=== PATIENT | female | born 1965 | race Caucasian/White ===

== ENCOUNTER 2020-01-05 10:42 | Outpatient (REF) | payer OTHER, SELFPAY ==
[2020-01-05 11:01] LABS: Basophils Percent Auto 0.2 % (0-2); Eosinophils Percent Auto 0.3 % (0-4); Hematocrit 45.6 % (37-47); Hemoglobin 15.2 g/dl (12.0-16.0); Imm Gran Abs Auto 0.06 X10*3/uL (0.00-0.03); Imm Gran Pct Auto 0.4 % (0.0-0.4); Lymphocytes Absolute Auto 1.5 X10*3/uL (1.2-4.9); MANUAL DIFF FLAG NO; Mean Corpuscular HGB Conc 33.3 g/dl (31.0-35.0); Mean Corpuscular Hemoglobin 31.1 pg (27.0-33.0); Mean Corpuscular Volume 93.3 fL (80-98); Monocytes Absolute Auto 0.8 X10*3/uL (0.1-1.2); Neutrophils Percent Auto 82.1 % (45-73); Platelet Count 246 X10*3/uL (160-400); Red Blood Count 4.89 X10*6/uL (4.20-5.50); Red Cell Distribution Width 13.5 % (11.0-16.0); White Blood Count 13.4 X10*3/uL (4.8-10.8)
== END 2020-01-05 10:43 | disposition home or self-care (01) ==
LOC: HO.BBR 10:42
PROVIDERS: PCP Internal Medicine; Visit Provider Internal Medicine
DX: D75.1 Secondary polycythemia (principal)
CPT/HCPCS: 36415; 85025; 99195

== ENCOUNTER 2020-01-11 13:23 | Outpatient (REF) | payer OTHER, SELFPAY ==
[2020-01-11 13:45] LABS: COVID-19 Test Negative (Negative)
== END 2020-01-11 13:24 | disposition home or self-care (01) ==
LOC: HO.LAB 13:23
PROVIDERS: Visit Provider Internal Medicine
DX: Z20.828 Contact with and (suspected) exposure to other viral communicable diseases (principal)
CPT/HCPCS: 87635

== ENCOUNTER 2020-01-30 14:59 | Outpatient (REF) | payer OTHER, SELFPAY ==
[2020-01-30 16:33] LABS: Alanine Aminotransferase 76 U/L (0-31); Albumin Level 4.8 g/dL (3.5-5.0); Alkaline Phosphatase 99 U/L (39-117); Aspartate Amino Transferase 31 U/L (5-31); Bilirubin Direct < 0.2 mg/dL (0.0-0.5); Bilirubin Total 0.4 mg/dL (0.0-1.0); Total Protein 7.3 g/dL (6.5-8.0)
== END 2020-01-30 15:00 | disposition home or self-care (01) ==
LOC: HO.LAB 14:59
PROVIDERS: PCP Registered Nurse; Visit Provider Clinical Nurse Specialist Psychiatric/Mental Health, Adult
DX: F33.2 Major depressive disorder, recurrent severe without psychotic features (principal)
CPT/HCPCS: 80076

== ENCOUNTER 2020-02-02 14:55 | Outpatient (REF) | payer OTHER, SELFPAY ==
[2020-02-02 16:15] LABS: Amphetamine Screen Urine Not Detected (Not Detect); Barbiturates, Urine Not Detected (Not Detect); Benzodiazepines Screen Urine Not Detected (Not Detect); Cannabinoid Screen Urine Not Detected (Not Detect); Cocaine Screen Urine Not Detected (Not Detect); Opiate Screen Urine Not Detected (Not Detect); Phencyclidine Screen Urine Not Detected (Not Detect)
== END 2020-02-02 14:56 | disposition home or self-care (01) ==
LOC: HO.LAB 14:55
PROVIDERS: PCP Registered Nurse; Visit Provider Clinical Nurse Specialist Psychiatric/Mental Health, Adult
DX: F43.10 Post-traumatic stress disorder, unspecified (principal)
CPT/HCPCS: 80307

== ENCOUNTER 2020-02-21 12:15 | Outpatient (RCR) | payer OTHER, SELFPAY ==
[2020-01-26 12:30] VITALS: BMI 28.4
--- NOTE | 2020-01-26 12:31 | PC.ADMIT ---
Patient is a 54 year old female who started the PHP program today on the advise of her EAP therapist. Pt was referred d/t increased symptoms of depression with passive SI and anxiety. Pt reports work related stress, feeling overwhelmed with increased work load and also from isolation d/t pandemic restrictions. Pt is applying for FMLA d/t symptoms. She has been using alcohol to cope with how she is feeling. Reports drinking wine increasing since the pandemic reporting up to 8-10 glasses a night from November-May. Pt reports she was working with her therapist and was able to reduce amount to 2 glasses a night however reports the glasses were not filled all the way. Reports last drank on 01/22/20. Denied any current detox sxs. Denied h/a, Nausea or vomiting, no tremors, she does report sweating but only at night stating she is going through menopause, No restlessness. Reports that she slept well last night sleeping 12 hours. Encouraged pt to increase fluid intake. Educated patient regarding the dangers of alcohol withdrawal and if she starts to experience the above mentioned symptoms to go to the ER. Pt also saw her PCP yesterday who sent us a letter medically clearing pt to attend our program. Patient currently denied SI. She has the crisis number if feeling unsafe and stated she can also reach out to her who is supportive. Patient gave verbal permission to email her a copy of her safety plan.
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
--- NOTE | 2020-01-30 15:15 | HO.PHPPROGNO ---
Subjective Subjective Date of Service: 01/30/20 Reason For Visit: depression Interim History: This is the third family member I have with NADINE. Describes a rough weekend. On Thursday, she learned from a colleague that her work team had been informed of current events. She also learned her son and daughter in law have COVID and they have 2 children. On Thursday pt felt labile, had a few disagreements with her which is out of character. Describes a period of 1-1.5 hours of intense inconsolable grief-crying which exhausted her into Thursday. I did not like who I was on Thursday . Today, she has a let it go perspective and wants to focus on anxiety and the symptoms of feeling as if she holds emotions in she cannot stop the anger, pain and racing thoughts. Reviewed options for medications. Medication Compliance: Yes Side effects from medications: No Attending Groups: Yes Review of Systems Reports behavioral changes Psychiatric: Reports anxiety, Reports behavioral changes, Reports depression, Reports difficulty concentrating, Reports hopelessness, Reports irritability, Reports anhedonia and Reports mood swings Mental Status Exam Mental Status Exam Patient Orientation: Person, Place, Time and Situation Level of Consciousness: Awake, Appropriate and Alert Patient Behavior: Appropriate Mood Description: Depressed, Labile (reports lability over part of the weekend.), Sad, Nervous and Apprehensive Affect Description: Constricted and Depressed Patient Cognition Impaired: No Ability to Follow Directions: Excellent Speech Pattern: Clear, Appropriate and Spontaneous Speech Memory Description: Intact Hallucinations: None Delusions: Not Present Thought Process: Intact and Goal Oriented Thought Content: positive for Intact Depressive Symptoms: Increased Anxiety, Increased Irritability, Crying Spells, Loss of Int. in Activity, Hopelessness, Unhappiness, Increased Fatigue, Low Self Esteem and Loss of Energy Judgement: Good Diagnostics Vital Signs (24Hr): Body Mass Index 28.4 Assessment & Plan Patient educated on: medication risk/benefits and therapeutic strategies Informed Consent: further education needed Reason for contiued partial hosp. stay Substantial Risk for: inability to function and rapid decompensation Certification I certify that partial hospital treatment is medically necessary due to the symptoms and problems resulting from the patient's mental illness and the failure to treat the patient at the partial hospital level of care would likely result in the patient requiring inpatient psychiatric care which could not be prevented at a less intensive level of care. Greater than 50% of the session was spent on counseling and/or coordination of care Discharge Plan Discharge Attending provider: David Jaramillo Additional Instructions: 01/30/20: Lamictal 25 mg daily Medications: New lamotrigine [Lamictal] 25 mg tablet 25 mg PO DAILY 14 Days Qty: 14 RF: 0 No Action atorvastatin 20 mg Tablet 20 mg PO BEDTIME RF: 0 amlodipine 5 mg Tablet 5 mg PO DAILY RF: 0 paroxetine HCl [Paxil] 30 mg Tablet 30 mg PO DAILY RF: 0 aspirin 81 mg Tablet 81 mg PO DAILY RF: 0 valsartan 160 mg Tablet 160 mg PO DAILY RF: 0
--- NOTE | 2020-01-31 14:48 | PM.EVENT ---
Event Note Date of Service: 01/31/20 Event Note: FMLA paperwork is completed with pt today.
--- NOTE | 2020-02-01 15:21 | PC.NURSE ---
Called [facility] to refer pt to therapist and med provider. I spoke to Sandi, who said she will create a chart and call me with dates for therapy and medication management.
--- NOTE | 2020-02-03 13:56 | PC.NURSE ---
I called and LM for Sandi at [facility] about her message stating there is an insurance issue related to referral placed for pt for individual therapy and med management. IU then called central intake again and spoke to Zaida ([phone])> Zaida said pt's insurance doesn't appear to be active yet. She said there might be a glitch in their computer. She said she will talk to Yareli, her boss, and get back to me
--- NOTE | 2020-02-06 14:58 | PC.NURSE ---
Insurance issue stated by [facility] is resolved. I recieved a call from Zaida at [facility] with appts for pt. I called her and let her know of these. She has an intake for individual therapy with Demetra Mccollum on 02/27/2020 at 3pm (pt will be assigned a therapist following the intake). She has a medication evaluation appt on 03/14/2020 from 10am to 11am with Lucero Hutton. She also has a 20 minute medication management followup on 04/11/2019 at 4pm, also with Lucero Hutton. All appointments are scheduled for telehealth, not in-person visits.
--- NOTE | 2020-02-08 12:09 | HO.PHPPROGNO ---
Subjective Subjective Date of Service: 02/08/20 Reason For Visit: depression Interim History: Kyra reports she is tolerating Lamictal without SE. She does experience a warm feeling approximately one hour after dosing, however, this passes. Discussed half-life. Reports work stress is still an issue, even while out on medical leave, due to recent activity. Discussed focus on self, healing and doing what she needs to do to manage symptoms, feel stronger and resilient. Medication Compliance: Yes Side effects from medications: No Attending Groups: Yes Review of Systems Psychiatric: Reports anxiety, Reports depression, Reports difficulty concentrating, Reports hopelessness, Reports irritability, Reports anhedonia and Reports mood swings Mental Status Exam Mental Status Exam Patient Orientation: Person, Place, Time and Situation Level of Consciousness: Awake, Appropriate and Alert Patient Behavior: Appropriate, Talkative, Cooperative, Anxious, Fearful and Fatigued Affect Description: Constricted and Anxious Patient Cognition Impaired: No Ability to Follow Directions: Excellent Speech Pattern: Clear, Appropriate and Spontaneous Speech Memory Description: Intact Hallucinations: None Delusions: Not Present Thought Process: Intact Thought Content: positive for Intact, positive for Circumstantial and positive for Logical Depressive Symptoms: Increased Anxiety, Loss of Int. in Activity, Feelings of Worthlessness, Hopelessness, Feelings of Guilt, Unhappiness, Increased Fatigue, Low Self Esteem, Loss of Energy and Difficulty Concentrating Judgement: Good Diagnostics Vital Signs (24Hr): Body Mass Index 28.4 Assessment & Plan Assessment & Plan (1) Post-traumatic stress disorder, unspecified: Status: Acute Code(s): F43.10 - Post-traumatic stress disorder, unspecified Assessment and Plan: -Continue Lamictal, Paxil -Continue PHP plan of care -Discussed re-focus on self, healing vs activities of her work -OP med appt 04/11/20 with [facility] (2) Major depressive disorder, recurrent severe without psychotic features: Status: Acute Code(s): F33.2 - Major depressive disorder, recurrent severe without psychotic features Assessment and Plan: -Continue Lamictal, Paxil and PHP plan of care -[facility] psychotherapy scheduled for 02/26/21, med appt 04/11/20. Certification I certify that partial hospital treatment is medically necessary due to the symptoms and problems resulting from the patient's mental illness and the failure to treat the patient at the partial hospital level of care would likely result in the patient requiring inpatient psychiatric care which could not be prevented at a less intensive level of care. Greater than 50% of the session was spent on counseling and/or coordination of care Discharge Plan Discharge Attending provider: David Jaramillo Additional Instructions: 01/30/20: Lamictal 25 mg daily *Kyra has an intake for individual therapy with Demetra Mccollum on 02/27/2020 at 3pm (pt will be assigned a therapist following the intake). She has a medication evaluation appt on 03/14/2020 from 10am to 11am with Lucero Hutton. She also has a 20 minute medication management followup on 04/11/2019 at 4pm, also with Lucero Hutton. All appointments are scheduled for telehealth, not in-person visits. Medications: Continued lamotrigine [Lamictal] 25 mg tablet 25 mg PO DAILY 14 Days Qty: 30 RF: 1 No Action atorvastatin 20 mg Tablet 20 mg PO BEDTIME RF: 0 amlodipine 5 mg Tablet 5 mg PO DAILY RF: 0 paroxetine HCl [Paxil] 30 mg Tablet 30 mg PO DAILY RF: 0 aspirin 81 mg Tablet 81 mg PO DAILY RF: 0 valsartan 160 mg Tablet 160 mg PO DAILY RF: 0
--- NOTE | 2020-02-13 16:44 | P.PNPSP_ITS ---
Subjective Subjective Date of Service: 02/14/20 Reason For Visit: depression Interim History: The day was good Describes a calm holiday. Pharmacy did not give Lamictal on 02/08/20 as they had questions. Weekend was quiet-Kyra is beginning to talk with friends/family about what has been stressful-feels some relief however this still feels difficult. Able to clarify some concerns with employer which is helpful she reports. Overall feels drained. Finding groups helpful. Plans step down today. Call to pt's pharmacy to address their concerns regarding Lamictal 25 mg daily to begin. Medication Compliance: Yes Side effects from medications: No Attending Groups: Yes Review of Systems Reports behavioral changes Psychiatric: Reports as per HPI, Reports anxiety, Reports behavioral changes, Reports depression, Reports difficulty concentrating, Reports hopelessness, Reports mood swings and Reports panic attacks Mental Status Exam Mental Status Exam Patient Orientation: Person, Place, Time and Situation Level of Consciousness: Awake, Appropriate and Alert Patient Behavior: Appropriate, Talkative and Cooperative Mood Description: Anxious and Flat Affect Description: Flat Patient Cognition Impaired: No Ability to Follow Directions: Excellent Speech Pattern: Clear, Appropriate and Spontaneous Speech Memory Description: Intact Hallucinations: None Delusions: Not Present Thought Process: Intact and Distracted (at times) Thought Content: positive for Intact, positive for Circumstantial and positive for Logical Depressive Symptoms: Increased Anxiety, Crying Spells, Loss of Int. in Activity, Hopelessness, Unhappiness, Increased Fatigue, Low Self Esteem and Loss of Energy Judgement: Good Diagnostics Vital Signs (24Hr): Body Mass Index 28.4 Assessment & Plan Assessment & Plan (1) Post-traumatic stress disorder, unspecified: Status: Acute Code(s): F43.10 - Post-traumatic stress disorder, unspecified Assessment and Plan: Lamictal order clarified with pt's pharmacy. Pt to begin dosage this evening. PHP transition to IOP. (2) Major depressive disorder, recurrent severe without psychotic features: Status: Acute Code(s): F33.2 - Major depressive disorder, recurrent severe without psychotic features Assessment and Plan: Begin Lamictal Step down to IOP Certification I certify that partial hospital treatment is medically necessary due to the symptoms and problems resulting from the patient's mental illness and the failure to treat the patient at the partial hospital level of care would likely result in the patient requiring inpatient psychiatric care which could not be prevented at a less intensive level of care. Greater than 50% of the session was spent on counseling and/or coordination of care Discharge Plan Discharge Attending provider: David Jaramillo Additional Instructions: 01/30/20: Lamictal 25 mg daily *Kyra has an intake for individual therapy with Demetra Mccollum on 02/27/2020 at 3pm (pt will be assigned a therapist following the intake). She has a medication evaluation appt on 03/14/2020 from 10am to 11am with Lucero Hutton. She also has a 20 minute medication management followup on 04/11/2019 at 4pm, also with Lucero Hutton. All appointments are scheduled for telehealth, not in- person visits. Medications: Continued lamotrigine [Lamictal] 25 mg tablet 25 mg PO DAILY 30 Days Qty: 30 RF: 1 No Action atorvastatin 20 mg Tablet 20 mg PO BEDTIME RF: 0 amlodipine 5 mg Tablet 5 mg PO DAILY RF: 0 paroxetine HCl [Paxil] 30 mg Tablet 30 mg PO DAILY RF: 0 aspirin 81 mg Tablet 81 mg PO DAILY RF: 0 valsartan 160 mg Tablet 160 mg PO DAILY RF: 0
--- NOTE | 2020-02-21 11:15 | P.PNPSP_ITS ---
Subjective Subjective Date of Service: 02/21/20 Reason For Visit: depression Interim History: Kyar reports this is her final PHP day. She reports feeling improved, 100% better . Tolerating Lamictal, the plan is to continue at 25 mg 02/20-, then increase to 50 mg 02/27. She will meet her new prescriber on 03/14/20. Medication Compliance: Yes Side effects from medications: No Attending Groups: Yes Review of Systems Reports behavioral changes Psychiatric: Reports behavioral changes and Reports other (reports feeling less hopeless and lost, more focused) Mental Status Exam Mental Status Exam Patient Orientation: Person, Place, Time and Situation Level of Consciousness: Awake, Appropriate and Alert Patient Behavior: Appropriate, Talkative, Cooperative and Anxious (about the future and dealing with issues-apprehensive) Mood Description: Apprehensive Affect Description: Appropriate Patient Cognition Impaired: No Ability to Follow Directions: Excellent Speech Pattern: Clear, Appropriate, Spontaneous Speech and Coherent Memory Description: Intact Hallucinations: None Delusions: Not Present Thought Process: Intact Thought Content: positive for Intact Judgement: Good Diagnostics Vital Signs (24Hr): Body Mass Index 28.4 Assessment & Plan Assessment & Plan (1) Post-traumatic stress disorder, unspecified: Status: Acute Code(s): F43.10 - Post-traumatic stress disorder, unspecified Assessment and Plan: -Continue Lamictal at 25 mg daily until 02/27/20. -On 02/28/20 increase Lamictal to 50mg daily. Prescriptions sent. Will meet new prescriber on 03/14/20. Certification I certify that partial hospital treatment is medically necessary due to the symptoms and problems resulting from the patient's mental illness and the failure to treat the patient at the partial hospital level of care would likely result in the patient requiring inpatient psychiatric care which could not be prevented at a less intensive level of care. Greater than 50% of the session was spent on counseling and/or coordination of care Discharge Plan Discharge Attending provider: David Jaramillo Additional Instructions: 01/30/20: Lamictal 25 mg daily *Kyra has an intake for individual therapy with Demetra Mccollum on 02/27/2020 at 3pm (pt will be assigned a therapist following the intake). She has a medication evaluation appt on 03/14/2020 from 10am to 11am with Lucero Hutton. She also has a 20 minute medication management followup on 04/11/2019 at 4pm, also with Lucero Hutton. All appointments are scheduled for telehealth, not in- person visits. Medications: New lamotrigine [Lamictal] 25 mg tablet 25 mg PO DAILY MDD 1 tab qd 8-14; 2 tabs qd 22 Days Qty: 40 RF: 0 No Action atorvastatin 20 mg Tablet 20 mg PO BEDTIME RF: 0 amlodipine 5 mg Tablet 5 mg PO DAILY RF: 0 paroxetine HCl [Paxil] 30 mg Tablet 30 mg PO DAILY RF: 0 aspirin 81 mg Tablet 81 mg PO DAILY RF: 0 valsartan 160 mg Tablet 160 mg PO DAILY RF: 0
== END 2020-02-21 23:55 | disposition home or self-care (01) ==
LOC: HO.PHPA 12:15
PROVIDERS: Visit Provider Psychiatry & Neurology Psychiatry
DX: F33.2 Major depressive disorder, recurrent severe without psychotic features (principal); F43.10 Post-traumatic stress disorder, unspecified; Z79.899 Other long term (current) drug therapy
CPT/HCPCS: 90792; 90853; 99213

== ENCOUNTER 2020-03-05 14:49 | Outpatient (REF) | payer OTHER, SELFPAY | END 2020-03-05 14:50 | disposition home or self-care (01) | LOC: HO.BBR 14:49 | PROVIDERS: Visit Provider Internal Medicine | DX: D75.1 Secondary polycythemia (principal) | CPT/HCPCS: 36415; 85018; 99195 ==

== ENCOUNTER 2020-03-22 09:22 | Outpatient (REF) | payer OTHER, SELFPAY ==
--- NOTE | 2020-03-22 09:26 | MM_ITS ---
EXAMINATION: MM SCREENING DIGITAL BREAST TOMOSYNTHESIS, BILATERAL CLINICAL INFORMATION: Screening. Asymptomatic. The lifetime risk of breast cancer based on the Tyrer-Cuzick Model is 7%. COMPARISON: Mammography: 06/24/2018, 05/15/2017 TECHNIQUE: Digital breast tomosynthesis is performed in both the craniocaudal and mediolateral oblique views along with computer-aided detection (CAD). Synthesized 2D images are generated from the tomosynthesis. FINDINGS: There are scattered areas of fibroglandular density (ACR BI-RADS breast composition Category b). There are no significant masses, abnormal calcifications, or other abnormalities. Parenchymal pattern is similar to prior studies. No significant changes. MM/MM tomosynthesis screening BI IMPRESSION: No mammographic evidence of malignancy. ASSESSMENT: BI-RADS 1: Negative RECOMMENDATION: Routine annual mammography screening. This patient's information was entered into a reminder system with a target due date for their next mammogram.
== END 2020-03-22 09:23 | disposition home or self-care (01) ==
LOC: HO.MAMMO 09:22
PROVIDERS: Visit Provider Registered Nurse
DX: Z12.31 Encounter for screening mammogram for malignant neoplasm of breast (principal)
CPT/HCPCS: 77063; 77067

== ENCOUNTER → 2020-05-07 11:16 | Outpatient (BNV) | payer OTHER, SELFPAY | PROVIDERS: PCP Internal Medicine; Visit Provider Internal Medicine | DX: D75.1 Secondary polycythemia (principal) | CPT/HCPCS: 99213; 99214 ==

== ENCOUNTER 2020-05-16 08:58 | Outpatient (REF) | payer OTHER, SELFPAY | END 2020-05-16 08:59 | disposition home or self-care (01) | LOC: HO.BBR 08:58 | PROVIDERS: Visit Provider Internal Medicine | DX: D75.1 Secondary polycythemia (principal) | CPT/HCPCS: 36415; 85018; 99195 ==

== ENCOUNTER 2020-07-19 08:49 | Outpatient (REF) | payer OTHER, SELFPAY | END 2020-07-19 08:50 | disposition home or self-care (01) | LOC: HO.BBR 08:49 | PROVIDERS: Visit Provider Internal Medicine | DX: D75.1 Secondary polycythemia (principal) | CPT/HCPCS: 85014; 85018; 99195 ==

== ENCOUNTER 2020-09-10 08:21 | Outpatient (REF) | payer OTHER, SELFPAY ==
--- NOTE | ~2020-09-10 | CT_ITS ---
EXAMINATION: CT CHEST SCREENING CLINICAL INFORMATION: Smoking history COMPARISON: Previous chest CT most recent May 2019 TECHNIQUE: Multidetector volumetric CT imaging of the chest is performed without contrast using low dose technique. Additional 2D coronal and sagittal reformatted images and axial 3D maximum intensity projection (MIP) images are generated on the CT workstation. This CT examination was performed using dose optimization techniques as appropriate, variously including the following: *Automated exposure control *Adjustment of mA and/or kV according to patient size (this includes techniques or standardized protocols for targeted exams where dose is matched to indication/reason for exam; i.e. extremities or head) *Use of iterative reconstruction technique DLP: 54 mGy-cm FINDINGS: LUNGS: The 3 mm right upper lobe nodule axial image 71 series 5 is stable. There are otherwise clear. MEDIASTINUM: The mediastinum is normal. PLEURA: There is no pleural effusion. No pleural mass or thickening. AXILLA: No lymphadenopathy. UPPER ABDOMEN: Unremarkable OSSEOUS STRUCTURES: Unremarkable. CT/CT lung screening IMPRESSION: Stable small right upper lobe pulmonary nodule. ASSESSMENT: Lung-RADS category 2: Benign RECOMMENDATION: Annual low-dose chest CT follow-up recommended.
== END 2020-09-10 08:22 | disposition home or self-care (01) ==
LOC: HO.CT 08:21
PROVIDERS: Visit Provider Physician Assistant Medical
DX: Z12.2 Encounter for screening for malignant neoplasm of respiratory organs (principal); F17.210 Nicotine dependence, cigarettes, uncomplicated
CPT/HCPCS: 71271

== ENCOUNTER 2020-09-13 09:01 | Outpatient (REF) | payer OTHER, SELFPAY | END 2020-09-13 09:02 | disposition home or self-care (01) | LOC: HO.BBR 09:01 | PROVIDERS: Visit Provider Internal Medicine | DX: D45 Polycythemia vera (principal) | CPT/HCPCS: 85014; 85018; 99195 ==

== ENCOUNTER 2020-11-14 09:44 | Outpatient (REF) | payer OTHER, SELFPAY | END 2020-11-14 09:45 | disposition home or self-care (01) | LOC: HO.BBR 09:44 | PROVIDERS: Visit Provider Internal Medicine | DX: D75.1 Secondary polycythemia (principal) | CPT/HCPCS: 85018; 99195 ==

== ENCOUNTER 2021-01-10 12:52 | Outpatient (REF) | payer OTHER, SELFPAY | END 2021-01-10 12:53 | disposition home or self-care (01) | LOC: HO.BBR 12:52 | PROVIDERS: Visit Provider Internal Medicine | DX: D75.1 Secondary polycythemia (principal) | CPT/HCPCS: 85018; 99195 ==

== ENCOUNTER 2021-02-11 10:53 | Outpatient (REF) | payer OTHER, SELFPAY | END 2021-02-11 10:54 | disposition home or self-care (01) | LOC: HO.BBR 10:53 | PROVIDERS: Visit Provider Internal Medicine | DX: D75.1 Secondary polycythemia (principal) | CPT/HCPCS: 85018; 99195 ==

== ENCOUNTER 2021-03-21 10:53 | Outpatient (REF) | payer OTHER, SELFPAY | END 2021-03-21 10:54 | disposition home or self-care (01) | LOC: HO.BBR 10:53 | PROVIDERS: Visit Provider Internal Medicine | DX: D75.1 Secondary polycythemia (principal) | CPT/HCPCS: 85018; 99195 ==

== ENCOUNTER 2021-04-19 10:46 | Outpatient (REF) | payer OTHER, SELFPAY | END 2021-04-19 10:47 | disposition home or self-care (01) | LOC: HO.BBR 10:46 | PROVIDERS: Visit Provider Internal Medicine | DX: D75.1 Secondary polycythemia (principal) | CPT/HCPCS: 85018; 99195 ==

== ENCOUNTER 2021-04-29 13:44 | Outpatient (REF) | payer OTHER, SELFPAY | END 2021-04-29 13:45 | disposition home or self-care (01) | LOC: HO.BBR 13:44 | PROVIDERS: Visit Provider Internal Medicine | DX: D75.1 Secondary polycythemia (principal) | CPT/HCPCS: 85018; 99195 ==

== ENCOUNTER 2021-06-10 13:48 | Outpatient (REF) | payer OTHER, SELFPAY | END 2021-06-10 13:49 | disposition home or self-care (01) | LOC: HO.BBR 13:48 | PROVIDERS: Visit Provider Internal Medicine | DX: D75.1 Secondary polycythemia (principal) | CPT/HCPCS: 85018; 99195 ==

== ENCOUNTER 2021-07-08 13:56 | Outpatient (REF) | payer OTHER, SELFPAY | END 2021-07-08 13:57 | disposition home or self-care (01) | LOC: HO.BBR 13:56 | PROVIDERS: Visit Provider Internal Medicine | DX: D75.1 Secondary polycythemia (principal) | CPT/HCPCS: 85018 ==

== ENCOUNTER 2021-07-31 08:48 | Outpatient (REF) | payer OTHER, SELFPAY | END 2021-07-31 08:49 | disposition home or self-care (01) | LOC: HO.BBR 08:48 | PROVIDERS: Visit Provider Internal Medicine | DX: D75.1 Secondary polycythemia (principal) | CPT/HCPCS: 85018; 99195 ==

== ENCOUNTER 2021-08-01 09:54 | Outpatient (REF) | payer OTHER, SELFPAY ==
--- NOTE | ~2021-08-01 | MM_ITS ---
EXAMINATION: MM SCREENING DIGITAL BREAST TOMOSYNTHESIS, BILATERAL CLINICAL INFORMATION: Screening. Asymptomatic. The lifetime risk of breast cancer based on the Tyrer-Cuzick Model is 6%. COMPARISON: Mammography: 03/22/2020, 06/24/2018, 05/15/2017 TECHNIQUE: Digital breast tomosynthesis is performed in both the craniocaudal and mediolateral oblique views along with computer-aided detection (CAD). Synthesized 2D images are generated from the tomosynthesis. FINDINGS: There are scattered areas of fibroglandular density (ACR BI-RADS breast composition Category b). There are no significant masses, abnormal calcifications, or other abnormalities. Parenchymal pattern is similar to prior studies. The axilla and skin contours are unremarkable. MM/MM tomosynthesis screening BI IMPRESSION: No mammographic evidence of malignancy. ASSESSMENT: BI-RADS 1: Negative RECOMMENDATION: Routine annual mammography screening. This patient's information was entered into a reminder system with a target due date for their next mammogram.
== END 2021-08-01 09:55 | disposition home or self-care (01) ==
LOC: HO.MAMMO 09:54
PROVIDERS: Visit Provider Registered Nurse
DX: Z12.31 Encounter for screening mammogram for malignant neoplasm of breast (principal)
CPT/HCPCS: 77063; 77067

== ENCOUNTER 2021-09-11 13:53 | Outpatient (REF) | payer OTHER, SELFPAY | END 2021-09-11 13:54 | disposition home or self-care (01) | LOC: HO.BBR 13:53 | PROVIDERS: Visit Provider Internal Medicine | DX: D75.1 Secondary polycythemia (principal) | CPT/HCPCS: 85014; 85018; 99195 ==

== ENCOUNTER 2021-09-12 09:20 | Outpatient (REF) | payer OTHER, SELFPAY ==
--- NOTE | ~2021-09-12 | CT_ITS ---
EXAMINATION: CT CHEST SCREENING CLINICAL INFORMATION: Current smoker. 40 pack year history. COMPARISON: Previous chest CT most recent August 2020 TECHNIQUE: Multidetector volumetric CT imaging of the chest is performed without contrast using low dose technique. Additional 2D coronal and sagittal reformatted images and axial 3D maximum intensity projection (MIP) images are generated on the CT workstation. This CT examination was performed using dose optimization techniques as appropriate, variously including the following: *Automated exposure control *Adjustment of mA and/or kV according to patient size (this includes techniques or standardized protocols for targeted exams where dose is matched to indication/reason for exam; i.e. extremities or head) *Use of iterative reconstruction technique DLP: 259 mGy-cm FINDINGS: LUNGS: The 3 mm right upper lobe nodule axial image 252 series 5 is stable. The lungs are otherwise clear. No endobronchial or endotracheal lesion. MEDIASTINUM: The mediastinum is normal. PLEURA: There is no pleural effusion. No pleural mass or thickening. AXILLA: No lymphadenopathy. UPPER ABDOMEN: Unremarkable OSSEOUS STRUCTURES: Unremarkable. CT/CT lung screening IMPRESSION: Stable small right upper lobe nodule. ASSESSMENT: Lung-RADS category 2: Benign RECOMMENDATION: Annual low-dose chest CT follow-up recommended.
== END 2021-09-12 09:21 | disposition home or self-care (01) ==
LOC: HO.CT 09:20
PROVIDERS: Visit Provider Physician Assistant Medical
DX: F17.210 Nicotine dependence, cigarettes, uncomplicated (principal)
CPT/HCPCS: 71271

== ENCOUNTER 2021-10-23 13:40 | Outpatient (REF) | payer OTHER, SELFPAY | END 2021-10-23 13:41 | disposition home or self-care (01) | LOC: HO.BBR 13:40 | PROVIDERS: Visit Provider Internal Medicine | DX: D75.1 Secondary polycythemia (principal) | CPT/HCPCS: 85014; 85018; 99195 ==

== ENCOUNTER 2021-11-20 13:53 | Outpatient (REF) | payer OTHER, SELFPAY | END 2021-11-20 13:54 | disposition home or self-care (01) | LOC: HO.BBR 13:53 | PROVIDERS: Visit Provider Internal Medicine | DX: D75.1 Secondary polycythemia (principal) | CPT/HCPCS: 85018 ==

== ENCOUNTER 2021-12-04 13:51 | Outpatient (REF) | payer OTHER, SELFPAY | END 2021-12-04 13:52 | disposition home or self-care (01) | LOC: HO.BBR 13:51 | PROVIDERS: Visit Provider Internal Medicine | DX: D75.1 Secondary polycythemia (principal) | CPT/HCPCS: 85018; 99195 ==

== ENCOUNTER 2022-01-08 11:10 | Outpatient (REF) | payer OTHER, SELFPAY | END 2022-01-08 11:11 | disposition home or self-care (01) | LOC: HO.BBR 11:10 | PROVIDERS: Visit Provider Internal Medicine | DX: D75.1 Secondary polycythemia (principal) | CPT/HCPCS: 85018; 99195 ==

== ENCOUNTER 2022-02-12 13:53 | Outpatient (REF) | payer OTHER, SELFPAY | END 2022-02-12 13:54 | disposition home or self-care (01) | LOC: HO.BBR 13:53 | PROVIDERS: Visit Provider Internal Medicine | DX: D75.1 Secondary polycythemia (principal) | CPT/HCPCS: 85018; 99195 ==

== ENCOUNTER 2022-03-26 13:58 | Outpatient (REF) | payer OTHER, SELFPAY | END 2022-03-26 13:59 | disposition home or self-care (01) | LOC: HO.BBR 13:58 | PROVIDERS: Visit Provider Internal Medicine | DX: D75.1 Secondary polycythemia (principal) | CPT/HCPCS: 85018; 99195 ==

== ENCOUNTER 2022-05-01 13:53 | Outpatient (REF) | payer OTHER, SELFPAY | END 2022-05-01 13:54 | disposition home or self-care (01) | LOC: HO.BBR 13:53 | PROVIDERS: Visit Provider Internal Medicine | DX: D75.1 Secondary polycythemia (principal) | CPT/HCPCS: 85014; 85018; 99195 ==

== ENCOUNTER 2022-05-20 07:10 | Outpatient (REF) | payer OTHER, SELFPAY ==
[2022-05-20 07:56] LABS: Estimated Average Glucose 103 mg/dL; Hemoglobin A1c % 5.2 %
[2022-05-20 08:20] LABS: Alanine Aminotransferase 29 U/L (0-31); Albumin Level 4.6 g/dL (3.5-5.0); Alkaline Phosphatase 101 U/L (39-117); Anion Gap 14 (12-20); Aspartate Amino Transferase 21 U/L (5-31); Bilirubin Total 0.5 mg/dL (0.0-1.0); Blood Urea Nitrogen 11 mg/dL (9-16); Carbon Dioxide 27 mmol/L (22-29); Chloride 105 mmol/L (96-108); Cholesterol 257 mg/dL; Estimated Glomerular Filt Rate > 60; Glucose Random 105 mg/dL (60-115); HDL Cholesterol 90 mg/dL; LDL Cholesterol Calculated 150 mg/dl; Potassium 4.5 mmol/L (3.3-5.1); Sodium 141 mmol/L (135-145); Triglycerides 87 mg/dL
[2022-05-20 08:39] LABS: Vitamin D 25-OH Total 11.8 ng/mL (>30)
== END 2022-05-20 07:11 | disposition home or self-care (01) ==
LOC: HO.LAB 07:10
PROVIDERS: PCP Registered Nurse; Visit Provider Registered Nurse
DX: R73.01 Impaired fasting glucose (principal); I10 Essential (primary) hypertension; E78.2 Mixed hyperlipidemia; F41.9 Anxiety disorder, unspecified; F32.A Depression, unspecified; E55.9 Vitamin D deficiency, unspecified
CPT/HCPCS: 36415; 80053; 80061; 82306; 83036; 84443

== ENCOUNTER 2022-06-12 13:51 | Outpatient (REF) | payer OTHER, SELFPAY | END 2022-06-12 13:52 | disposition home or self-care (01) | LOC: HO.BBR 13:51 | PROVIDERS: PCP Registered Nurse; Visit Provider Internal Medicine | DX: D75.1 Secondary polycythemia (principal) | CPT/HCPCS: 85018; 99195 ==

== ENCOUNTER 2022-06-26 14:49 | Outpatient (REF) | payer OTHER, SELFPAY ==
--- NOTE | ~2022-06-26 | US_ITS ---
EXAMINATION: US VENOUS ULTRASOUND WITH DOPPLER LOWER EXTREMITY, RIGHT CLINICAL INFORMATION: Right leg swelling COMPARISON: None available. TECHNIQUE: Ultrasound of the deep veins is performed from the hip to the calf with compression sonography and color and pulse Doppler assessment. Spectral analysis with color-flow imaging is performed. FINDINGS: There is normal venous compression and respiratory variation and augmented flow. The visualized common femoral vein, superficial femoral vein, profunda femoral vein, popliteal vein, and the trifurcation region shows no evidence of deep venous thrombosis. There is no significant popliteal fossa cyst. No popliteal artery aneurysm. US/US venous duplex LE RT IMPRESSION: No acute DVT demonstrated in the right lower extremity.
== END 2022-06-26 14:50 | disposition home or self-care (01) ==
LOC: HO.US 14:49
PROVIDERS: PCP Registered Nurse; Visit Provider Registered Nurse
DX: M79.89 Other specified soft tissue disorders (principal)
CPT/HCPCS: 93971

== ENCOUNTER 2022-07-24 13:50 | Outpatient (REF) | payer OTHER, SELFPAY | END 2022-07-24 13:51 | disposition home or self-care (01) | LOC: HO.BBR 13:50 | PROVIDERS: PCP Registered Nurse; Visit Provider Internal Medicine | DX: D75.1 Secondary polycythemia (principal) | CPT/HCPCS: 85018 ==

== ENCOUNTER 2022-08-05 08:16 | Outpatient (REF) | payer OTHER, SELFPAY ==
--- NOTE | ~2022-08-05 | MM_ITS ---
EXAMINATION: MM SCREENING DIGITAL BREAST TOMOSYNTHESIS, BILATERAL CLINICAL INFORMATION: Screening. Asymptomatic. The lifetime risk of breast cancer based on the Tyrer-Cuzick Model is 7%. COMPARISON: Mammography: 08/01/2021, 03/22/2020, 06/24/2018 TECHNIQUE: Digital breast tomosynthesis is performed in both the craniocaudal and mediolateral oblique views along with computer-aided detection (CAD). Synthesized 2D images are generated from the tomosynthesis. FINDINGS: There are scattered areas of fibroglandular density (ACR BI-RADS breast composition Category b). There are no significant masses, abnormal calcifications, or other abnormalities. Parenchymal pattern is similar to prior studies. There is no developing density or architectural abnormality. The axilla and skin contours are unremarkable. No significant changes. MM/MM tomosynthesis screening BI IMPRESSION: No mammographic evidence of malignancy. ASSESSMENT: BI-RADS 1: Negative RECOMMENDATION: Routine annual mammography screening. This patient's information was entered into a reminder system with a target due date for their next mammogram.
--- NOTE | ~2022-08-05 | MM_ITS ---
EXAMINATION: BONE DENSITOMETRY CLINICAL INDICATION: Osteoarthritis. COMPARISON: None (current study represents initial baseline exam). TECHNIQUE: Using a [employer] DXA System (software version: 13.1) manufactured by [employer], dual-energy x-ray absorptiometry was performed of the lumbar spine and left hip. The images are of good technical quality. Summary results are attached. FINDINGS: AP SPINE L1-L4: BMD 1.197 g/cm2, Z-score 0.7, T-score 0.1, normal. LEFT FEMUR, NECK: BMD 0.753 g/cm2, Z-score -1.2, T-score -2.0, osteopenia. LEFT FEMUR, TOTAL: BMD 0.878 g/cm2, Z-score -0.6, T-score -1.0, normal. IDENTIFIED RISK FACTORS: Current smoker. Menopause. HISTORY OF FRACTURE: None listed. MEDICATIONS: None listed. MM/XR DEXA axial skeleton IMPRESSION: 1. DIAGNOSIS: Osteopenia based on the lowest T-score value of -2.0 in the femoral neck applying World Health Organization criteria. 2. 10-YEAR FRACTURE RISK PREDICTION, FRAX: Major osteoporotic fracture (clinical spine, forearm, hip or shoulder) 9.4%. Hip fracture 2.0%. 3. Treatment Recommendations: NOF guidelines recommend consideration for treatment in postmenopausal women and men age 50 and older presenting with the following: -A hip or vertebral (clinical or morphometric) fracture. -T-score less than or equal to -2.5 at the femoral neck or spine after appropriate evaluation to exclude secondary causes. -Low bone mass at the hip or spine and a 10-year fracture probability by FRAX of greater than or equal to 3% for hip fracture or greater than or equal to 20% for major osteoporotic fracture based on the [place] adapted WHO algorithm. 4. Other Recommendations: All treatment decisions require clinical judgment and consideration of individual patient factors, including patient preferences, comorbidities, previous drug use, risk factors not captured in the FRAX model (e.g. frailty, falls, vitamin D deficiency, increased bone turnover, interval significant decline in bone density) and possible under or overestimation of fracture risk by FRAX. Additional medical evaluation for secondary cause of low bone mineral density may be appropriate. FUTURE SCAN RECOMMENDATION: People with diagnosed cases of osteoporosis or at high risk for fracture should have regular bone mineral density tests. For patients eligible for Medicare, routine testing is allowed once every 2 years. The testing frequency can be increased to one year for patients who have rapidly progressing disease, those who are receiving or discontinuing medical therapy to restore bone mass, or have additional risk factors.
== END 2022-08-05 08:17 | disposition home or self-care (01) ==
LOC: HO.MAMMO 08:16
PROVIDERS: PCP Registered Nurse; Visit Provider Registered Nurse
DX: Z12.31 Encounter for screening mammogram for malignant neoplasm of breast (principal); Z13.820 Encounter for screening for osteoporosis; Z78.0 Asymptomatic menopausal state; M19.90 Unspecified osteoarthritis, unspecified site; Z91.89 Other specified personal risk factors, not elsewhere classified
CPT/HCPCS: 77063; 77067; 77080

== ENCOUNTER 2022-08-21 13:52 | Outpatient (REF) | payer OTHER, SELFPAY | END 2022-08-21 13:53 | disposition home or self-care (01) | LOC: HO.BBR 13:52 | PROVIDERS: PCP Registered Nurse; Visit Provider Internal Medicine | DX: D75.1 Secondary polycythemia (principal) | CPT/HCPCS: 85018; 99195 ==

== ENCOUNTER 2022-09-19 09:22 | Outpatient (REF) | payer OTHER, SELFPAY | END 2022-09-19 09:23 | disposition home or self-care (01) | LOC: HO.BBR 09:22 | PROVIDERS: PCP Registered Nurse; Visit Provider Internal Medicine | DX: D75.1 Secondary polycythemia (principal) | CPT/HCPCS: 85014; 85018; 99195 ==

== ENCOUNTER 2022-10-17 12:48 | Outpatient (REF) | payer OTHER, SELFPAY | END 2022-10-17 12:49 | disposition home or self-care (01) | LOC: HO.BBR 12:48 | PROVIDERS: PCP Registered Nurse; Visit Provider Internal Medicine | DX: D75.1 Secondary polycythemia (principal) | CPT/HCPCS: 85014; 85018; 99195 ==

== ENCOUNTER 2022-11-14 12:56 | Outpatient (REF) | payer OTHER, SELFPAY | END 2022-11-14 12:57 | disposition home or self-care (01) | LOC: HO.BBR 12:56 | PROVIDERS: Visit Provider Internal Medicine | DX: D75.1 Secondary polycythemia (principal) | CPT/HCPCS: 85018; 99195 ==

== ENCOUNTER 2022-12-26 12:57 | Outpatient (REF) | payer OTHER, SELFPAY | END 2022-12-26 12:58 | disposition home or self-care (01) | LOC: HO.BBR 12:57 | PROVIDERS: PCP Registered Nurse; Visit Provider Internal Medicine | DX: D75.1 Secondary polycythemia (principal) | CPT/HCPCS: 85018 ==

== ENCOUNTER 2023-02-02 13:51 | Outpatient (REF) | payer OTHER, SELFPAY | END 2023-02-02 13:52 | disposition home or self-care (01) | LOC: HO.BBR 13:51 | PROVIDERS: Visit Provider Internal Medicine | DX: D75.1 Secondary polycythemia (principal) | CPT/HCPCS: 85018; 99195 ==

== ENCOUNTER 2023-02-24 12:50 | Outpatient (REF) | payer OTHER, SELFPAY ==
--- NOTE | ~2023-02-24 | CT_ITS ---
EXAMINATION: CT CHEST SCREENING CLINICAL INFORMATION: Current smoker; 41 pack-year history. COMPARISON: Prior CT examinations, most recently 09/12/2021. TECHNIQUE: Multidetector volumetric CT imaging of the chest is performed without contrast using low dose technique. Additional 2D coronal and sagittal reformatted images and axial 3D maximum intensity projection (MIP) images are generated on the CT workstation. This CT examination was performed using dose optimization techniques as appropriate, variously including the following: *Automated exposure control *Adjustment of mA and/or kV according to patient size (this includes techniques or standardized protocols for targeted exams where dose is matched to indication/reason for exam; i.e. extremities or head) *Use of iterative reconstruction technique DLP: 82 mGy-cm FINDINGS: LUNGS: There is mild biapical pleural and parenchymal scarring. There is a benign, stable 3 mm subpleural nodule at the posterior right apex, with adjacent scarring. No new nodule, mass, infiltrate or groundglass opacity is seen. There is no generalized increase in peripheral interlobular septal markings. No bleb or bullous formation is seen. There is no significant small airway thickening. The central airways appear patent. MEDIASTINUM: The mediastinum is normal. CORONARY ARTERY CALCIFICATION: None visualized on this study. PLEURA: There is no pleural effusion. No pleural mass or thickening. AXILLA: No lymphadenopathy. UPPER ABDOMEN: A previously suspected probable benign hemangioma in the posterior segment of the right upper lobe shows no interim change. The adrenal glands are unremarkable. OSSEOUS STRUCTURES: Unremarkable. CT/CT lung screening IMPRESSION: 1. A benign, stable 3 mm right upper lobe subpleural nodule is seen. 2. No new nodule, mass, infiltrate or ground glass opacity is seen. 3. There is no thoracic lymphadenopathy or pleural effusion. 4. No aggressive osseous lesion is seen. 5. There is a continued stable suspected benign hemangioma situated within the posterior segment of the right hepatic lobe. ASSESSMENT: Lung-RADS category 2: Benign RECOMMENDATION: Routine annual low-dose CT screening in 12 months.
== END 2023-02-24 12:51 | disposition home or self-care (01) ==
LOC: HO.CT 12:50
PROVIDERS: PCP Registered Nurse; Visit Provider Physician Assistant Medical
DX: Z12.2 Encounter for screening for malignant neoplasm of respiratory organs (principal); F17.210 Nicotine dependence, cigarettes, uncomplicated
CPT/HCPCS: 71271

== ENCOUNTER 2023-03-02 13:43 | Outpatient (REF) | payer OTHER, SELFPAY | END 2023-03-02 13:44 | disposition home or self-care (01) | LOC: HO.BBR 13:43 | PROVIDERS: PCP Registered Nurse; Visit Provider Internal Medicine | DX: D75.1 Secondary polycythemia (principal) | CPT/HCPCS: 85014; 85018; 99195 ==

== ENCOUNTER 2023-03-30 13:46 | Outpatient (REF) | payer OTHER, SELFPAY | END 2023-03-30 13:47 | disposition home or self-care (01) | LOC: HO.BBR 13:46 | PROVIDERS: PCP Registered Nurse; Visit Provider Internal Medicine | DX: D75.1 Secondary polycythemia (principal) | CPT/HCPCS: 85014; 85018; 99195 ==

== ENCOUNTER 2023-04-27 13:51 | Outpatient (REF) | payer OTHER, SELFPAY | END 2023-04-27 13:52 | disposition home or self-care (01) | LOC: HO.BBR 13:51 | PROVIDERS: PCP Registered Nurse; Visit Provider Internal Medicine | DX: D75.1 Secondary polycythemia (principal) | CPT/HCPCS: 85014; 85018; 99195 ==

== ENCOUNTER 2023-06-01 13:58 | Outpatient (REF) | payer OTHER, SELFPAY | END 2023-06-01 13:59 | disposition home or self-care (01) | LOC: HO.BBR 13:58 | PROVIDERS: PCP Registered Nurse; Visit Provider Internal Medicine | DX: D75.1 Secondary polycythemia (principal) | CPT/HCPCS: 85018; 99195 ==

== ENCOUNTER 2023-06-30 12:58 | Outpatient (REF) | payer OTHER, SELFPAY | END 2023-06-30 12:59 | disposition home or self-care (01) | LOC: HO.BBR 12:58 | PROVIDERS: PCP Registered Nurse; Visit Provider Internal Medicine | DX: D75.1 Secondary polycythemia (principal) | CPT/HCPCS: 85014; 85018; 99195 ==

== ENCOUNTER 2023-07-29 12:51 | Outpatient (REF) | payer OTHER, SELFPAY | END 2023-07-29 12:52 | disposition home or self-care (01) | LOC: HO.BBR 12:51 | PROVIDERS: PCP Registered Nurse; Visit Provider Internal Medicine | DX: D75.1 Secondary polycythemia (principal) | CPT/HCPCS: 85014; 85018; 99195 ==

== ENCOUNTER 2023-08-28 12:59 | Outpatient (REF) | payer OTHER, SELFPAY | END 2023-08-28 13:00 | disposition home or self-care (01) | LOC: HO.BBR 12:59 | PROVIDERS: PCP Registered Nurse; Visit Provider Internal Medicine | DX: D75.1 Secondary polycythemia (principal) | CPT/HCPCS: 85018; 99195 ==

== ENCOUNTER 2023-09-24 12:01 | Outpatient (REF) | payer OTHER, SELFPAY | END 2023-09-24 12:02 | disposition home or self-care (01) | LOC: HO.BBR 12:01 | PROVIDERS: PCP Registered Nurse; Visit Provider Internal Medicine | DX: D75.1 Secondary polycythemia (principal) | CPT/HCPCS: 85014; 85018; 99195 ==

== ENCOUNTER 2023-11-09 09:44 | Outpatient (REF) | payer OTHER, SELFPAY | END 2023-11-09 09:45 | disposition home or self-care (01) | LOC: HO.BBR 09:44 | PROVIDERS: PCP Registered Nurse; Visit Provider Internal Medicine | DX: D75.1 Secondary polycythemia (principal) | CPT/HCPCS: 85018; 99195 ==

== ENCOUNTER 2023-12-14 12:00 | Outpatient (REF) | payer OTHER, SELFPAY | END 2023-12-14 12:01 | disposition home or self-care (01) | LOC: HO.BBR 12:00 | PROVIDERS: PCP Registered Nurse; Visit Provider Internal Medicine | DX: D75.1 Secondary polycythemia (principal) | CPT/HCPCS: 85014; 85018; 99195 ==

== ENCOUNTER 2024-01-11 11:55 | Outpatient (REF) | payer OTHER, SELFPAY | END 2024-01-11 11:56 | disposition home or self-care (01) | LOC: HO.BBR 11:55 | PROVIDERS: PCP Registered Nurse; Visit Provider Internal Medicine | DX: D75.1 Secondary polycythemia (principal) | CPT/HCPCS: 85014; 85018; 99195 ==

== ENCOUNTER 2024-02-08 12:29 | Outpatient (REF) | payer OTHER, SELFPAY | END 2024-02-08 12:30 | disposition home or self-care (01) | LOC: HO.BBR 12:29 | PROVIDERS: PCP Internal Medicine; Visit Provider Internal Medicine | DX: Z13.89 Encounter for screening for other disorder (principal) ==

== ENCOUNTER 2024-02-22 12:27 | Outpatient (REF) | payer OTHER, SELFPAY | END 2024-02-22 12:28 | disposition home or self-care (01) | LOC: HO.BBR 12:27 | PROVIDERS: PCP Internal Medicine; Visit Provider Internal Medicine | DX: D75.1 Secondary polycythemia (principal) | CPT/HCPCS: 85018; 99195 ==

== ENCOUNTER 2024-02-29 08:41 | Outpatient (REF) | payer OTHER, SELFPAY | END 2024-02-29 08:42 | disposition home or self-care (01) | LOC: HO.CT 08:41 | PROVIDERS: PCP Internal Medicine; Visit Provider Physician Assistant Medical | DX: Z12.2 Encounter for screening for malignant neoplasm of respiratory organs (principal); F17.210 Nicotine dependence, cigarettes, uncomplicated | CPT/HCPCS: 71271 ==

== ENCOUNTER → 2024-02-29 08:44 | Outpatient (BNV) | payer OTHER, SELFPAY | PROVIDERS: PCP Internal Medicine; Visit Provider Radiology Diagnostic Radiology | DX: Z12.2 Encounter for screening for malignant neoplasm of respiratory organs (principal); F17.210 Nicotine dependence, cigarettes, uncomplicated | CPT/HCPCS: 71271 ==

== ENCOUNTER 2024-04-11 11:59 | Outpatient (REF) | payer OTHER, SELFPAY ==
--- OUTSIDE RECORDS SUMMARY | 2024-04-11 16:58 | XMS_ITS | Encounter Summary ---
Author Organization [facility] Address [phone] Formerly [facility], [facility] [place] [address] Care Team Providers Care Deputy Commonwealth'S Attorney Name Role Phone Du Maldonado MD Primary Care Provider [phone] Reason for Visit * Reason Comments Medication Refill Encounter Details Date Type Department Care Team (Late st Contact Info) Description 01/11/2024 Refill [facility] Internal Medicine [address] [place] [address] Du Maldonado MD [address] [place] [address] [email or web address] Medication Refill Social History Tobacco Use Types Packs/Day Years Used Date Smoking Tobacco: Every Day Cigarettes 0.3 40 Smokeless Tobacco: Never Comments:5-10 cigarettes rehan ly Alcohol Use Standard Drinks/Week Comments Yes 0 (1 standard drink = 0.6 oz pur e alcohol) 3-4 drinks, 2-4 x month Child or Family Care Answer Date Record ed Do you have problems with on e of the following making it difficult for you to work, study, or receive health care? No 10/12/2023 Education Answer Date Recorded Are you interested in help w ith more adult education (for example, completing high school, GED, job training, learning the [place] language, technical skills, or developing parenting skills)? No 10/12/2023 Are you concerned about learning? Not on file 10/12/2023 No 10/12/2023 Yes 10/12/2023 Food Answer Date Recorded Within the past 6 months we worried whether our food would run out before we got money to buy more. Never True 10/12/2023 Within the past 6 months the food we bought just didn't last and we didn't have enough money to get more. Never True Residential Stability Answer Date Recor ded What is your housing situation today? I have jericho silverman 10/12/2023 How many times have you move d in the past 12 months? Zero (I did not move) 10/12/2023 Paying for Meds Answer Date Recorded Do you have trouble paying for medicines? No 10/12/2023 Paying Utility Bills Answer Date Record ed Do you have trouble paying your heating or elect ricity bill? No 10/12/2023 Transportation Answer Date Recorded Has the lack of transportati on kept you from medical appointments or from getting medications? No 10/12/2023 Unemployment Answer Date Recorded Are you currently unemployed or working on a part-time or temporary basis, and looking for work? No 2022 Digital Access Answer Date Recorded No 10/12/2023 Yes 10/12/2023 Do you have reliable internet access at home? Ye s 10/12/2023 Do you have a device (e.g., phone, tablet, computer) with a working camera? Yes 10/12/2023 Intimate Partner Violence Answer Date R ecorded Denied Basic Needs Not on file 10/12/2023 In the past 12 months have y ou been in a relationship with a person who hurts, threatens, or tries to control you? No 10/12/2023 Worried food would run out Not on file 10/11 In the past 12 months have y ou been in a relationship with a person who hurts, threatens, or tries to control you? No 10/12/2023 Sex and Gender Information Value Date Recorded Sex Assigned at Female 08/24/2019 3:14 PM EDT Gender Identity Female 08/24/2019 3:14 PM EDT Sexual Orientation Not on file documented as of this encounter Plan of Treatment Upcoming Encounters Date Type Department Care Team (Late st Contact Info) Description 04/20/2024 3:45 PM EST Appointment [facility] Internal Medicine [address] [facility] [place] [address] Du Maldonado MD [address] [place] [address] [email or web address] documented as of this encounter Visit Diagnoses Diagnosis Hypertension Unspecified essential hypertension documented in this encounter Additional Health Concerns Assessment Noted Time PHQ-2 Depression Total Score: 0 10/12/19 24 12:19 PM EDT documented as of this encounter Care Teams Deputy Commonwealth'S Attorney Relationship Specialty Start Date End Date Du Maldonado MD [address] [place] [address] [email or web address] PCP - General Internal Medicine 08/07/22 documented as of this encounter Additional Source Comments The information contained in this document represents components of the legal health record. It is not the complete legal health record.[facility]
--- OUTSIDE RECORDS SUMMARY | 2024-04-11 16:58 | XMS_ITS | Clinical Summary ---
Author Organization [facility] Address [phone] [facility] [place] [address] Care Team Providers Care Muffler Hand Name Role Phone Du Maldonado MD Primary Care Provider [phone] Allergies Active Allergy Reactions Criticality Noted Date Comments Lisinopril Cough 07/22/2017 Sulfa (Sulfonamide Antibiotics) Hives,Itching 1 04/12/2016 Medications Medication Sig Dispensed Refills Start Date End Date Status aspirin 81 MG EC tablet 1 tablet Active nicotine polacrilex (COMMIT) 4 MG lozengeIndications:C igarette nicotine dependence without complication Place 1 lozenge (4 mg total) inside cheek every 30 (thirty) minutes as needed for smoking cessation (max 20 pieces per day). 144 lozenge 6 10/16/2023 Active valsartan (DIOVAN) 160 MG tabletIndications:Hy pertension Take 1 tablet (160 mg total) by mouth daily. 90 tablet 1 10/16/2023 Active nicotine (NICODERM CQ) 14 mg/24 hrIndications:Cigare tte nicotine dependence without complication PLACE 1 PATCH ONTO THE SKIN DAILY. IF INSOMNIA REMOVE AT BEDTIME 28 patch 3 11/09/2023 Active PARoxetine (PAXIL) 30 MG tabletIndications:An xiety and depression Take 1 tablet (30 mg total) by mouth every morning. 90 tablet 3 11/26/2023 Active amLODIPine (NORVASC) 10 MG tablet Take 1 tablet (10 mg total) by mouth every morning. 90 tablet 2 01/28/2024 Active Active Problems Problem Noted Date Diagnosed Date Routine general medical exam ination at a health care facility 10/16/2023 Assessment & Plan (10/16/2023 4:17 PM EDT): The patient's exam is unremarkable and her blood pressure is under good control. We are encouraging her to quit smoking, smoking cessation counseling as above. Will continue the Paxil seems to be working well at 30 mg and if she were to decide to come off of it she should come off in a tapered manner and better to call me. Blood pressure well-controlled continue the antihypertensive which we will switch over to a 180 mg tablet. That is the valsartan. She will continue with the Norvasc which is not causing her edema. She has a very good HDL despite the smoking, we can check a lipid profile sometime next year. Vitamin D level will be obtained when she goes for hematology labs regarding her polycythemia. Osteopenia of neck of femur 08/08/2022 Impaired fasting glucose 05/19/2022 Assessment & Plan (05/19/2022 10:23 PM EST): Check a1c Cigarette nicotine dependence without complicati on 05/19/2022 Assessment & Plan (05/19/2022 10:24 PM EST): Will begin nicotine replacement with patch. Ok to use lozenge throughout the day as needed. Elevated LFTs 03/06/2020 Assessment & Plan (03/06/2020 3:25 PM EST): Discussed LFTs and results from 1116. Reviewed causes of elevated ALT. Since this was in the setting of heavy EtOH use I recommended we recheck LFTs over the next month and determine need for medication adjustment accordingly. Mixed hyperlipidemia 03/06/2020 Assessment & Plan (05/19/2022 10:23 PM EST): Check lipids, recommend resuming statin as indicated Assessment & Plan (03/06/2020 3:26 PM EST): Check lipid panel with next labs Hepatic hemangioma 05/20/2018 Hypertension 08/31/2017 Assessment & Plan (05/19/2022 10:23 PM EST): Well-managed on current medication regimen Assessment & Plan (03/06/2020 3:26 PM EST): Well-managed Menopausal vasomotor syndrome 07/23/2017 Assessment & Plan (07/23/2017 11:59 AM EDT): Discussed hot flushes and perimenopausal s/e in detail. Reviewed options for management of hot flushes, including herbal remedies, hormone replacement, and SSRI/SNRI agents. She is not a candidate for hormone replacement given recent dx of polycythemia, htn, and current tobacco use. She demonstrates understanding. Reviewed SSRI options; pt is open to trial of low-dose Paxil. Reviewed initiation of 7.5 mg before bedtime. Will clear with Dr. Ramey given frequent contact and f/u. Discussed expected sx relieve with paxil initiation. Will f/u in 6-8 weeks re: med initiation and titrate prn. Discussed possible s/e including worsened sx, anxiety, and depression. Pt to notify office immediately if any concerns or if any SI/HI. No c/i. Last CMP wnl, will repeat 08/21. Discussed importance of lifestyle changes, including smoking cessation, daily exercise/cardio for at least 15 mins per day, limiting etoh, avoiding more than 1-2 servings caffiene. Pt will trial. Declines assistance with tobacco cessation right now. I encouraged her to cut back by even 1 cigarette per day by next visit. Cervical polyp 02/10/2017 Elevated hemoglobin 02/10/2017 Insomnia 02/10/2017 Osteoarthritis 02/10/2017 Other intervertebral disc displacement, lumbar r egion 02/10/2017 Tobacco use 02/10/2017 Polycythemia 02/10/2017 Assessment & Plan (05/19/2022 10:23 PM EST): Continue care with hematology Low iron 02/10/2017 Anxiety and depression Overview (03/06/2020): Previously saw outpatient therapist prior to 2017 and completed PPHP at [place] in January 2020. Assessment & Plan (05/19/2022 10:24 PM EST): Will reduce buspar to 5 mg daily x 2 weeks, then if feeling well will d/c entirely Assessment & Plan (03/06/2020 3:25 PM EST): Continue all medications as prescribed Encounters Date Type Department Care Team Description 01/27/2024 Refill [facility] Internal Medicine [address] [facility] [place] [address] Brandi Fabian, TAYLOR Medication Refill 01/11/2024 Refill [facility] Internal Medicine [address] [place] [address] Du Maldonado MD Medication Refill from Last 3 Months Immunizations Name Administration Dates Next Due COVID-19 (Pre-01/05) Pfizer Vaccine, mRNA, PF 12/12/2020,05/01/2020 Influenza Quadrivalent Preservative Free IM 12/15,2022,01/08/2021 Influenza Quadrivalent w/ Preservative IM 2016 Influenza Trivalent w/ Preservative IM 6,12/05/2010 Tdap 01/07/2011 Family History * Patient is adopted Medical History Relation Comments Depression Daughter Eating disorder Daughter No Known Problems Son 1 Relation Status Comments Daughter Alive Mother Son 1 Alive Son 2 Alive Son 3 Alive Social History Tobacco Use Types Packs/Day Years Used Date Smoking Tobacco: Every Day Cigarettes 0.3 40 Smokeless Tobacco: Never Tobacco Cessation:Ready to Q uit: Not Asked; Counseling Given: Not Answered Comments:5-10 cigarettes daily Alcohol Use Standard Drinks/Week Comments Yes 0 [...] high school, GED, job training, learning the [place] language, technical skills, or developing parenting skills)? [...] PM EDT Sexual Orientation Not on file Last Filed Vital Signs Vital Sign Reading Time Taken Comments Blood Pressure 120/68 10/16/2023 3:22 PM EDT Pulse 95 10/16/2023 3:22 PM EDT Temperature 36.6 ??C (97.9 ??F) 10/16/2023 3:22 PM ED T Respiratory Rate 16 10/16/2023 3:22 PM EDT Oxygen Saturation 98% 10/16/2023 3:22 PM EDT Inhaled Oxygen Concentration - - Weight 80.8 kg (178 lb 3.2 oz) 10/16/2023 3:22 P M EDT Height 167.9 cm (5' 6.1 ) 10/16/2023 3:22 PM EDT Body Mass Index 28.67 10/16/2023 3:22 PM EDT Plan of Treatment Upcoming Encounters Date Type Department Care Team (Late st Contact Info) Description 04/20/2024 3:45 PM EST Appointment [facility] Internal Medicine [address] [place] [address] Du Maldonado MD [address] [place] [address] [email or web address] Health Maintenance Due Date Last Done Comments HEPATITIS B SCREENING 02/17/1982 HEPATITIS C SCREENING 02/17/1982 HIV ONE-TIME SCREENING (18-65 YEARS) 02/17/1982 HEPATITIS A VACCINES (1 of 2 - Risk 2-dose series) 02/17/1983 PNEUMOCOCCAL VACCINES (50+ years) (1 of 2 - PCV) 02/17/1983 COLOGUARD 02/17/2009 FIT TEST 02/17/2009 FOBT 02/17/2009 SIGMOIDOSCOPY 02/17/2009 VIRTUAL COLONOSCOPY 02/17/2009 ZOSTER VACCINES (1 of 2) 02/17/2014 PAP SMEAR 07/12/2018 07/12/2013 Adult Td,Tdap Booster 01/07/2021 01/07/2011 CREATININE LEVEL 05/21/2023 05/20/2022, 09/2022, 2022, Additional history exists POTASSIUM LEVEL 05/21/2023 05/20/2022, 1208/2021, 08/29/2019, Additional history exists INFLUENZA VACCINE (#1) 2023 , 2022, 01/08/2021, Additional history exists COVID-19 VACCINE ( season) 2023 01/30/2023, 12/12/2020, 05/01/2020 COLONOSCOPY 01/22/2024 01/21/2019 COLORECTAL CANCER SCREENING 01/22/2024 HEPATITIS B VACCINES (1 of 3 - Risk 3-dose series) 2024 RSV VACCINE (1 - Risk 60-74 years 1-dose series) 2024 BLOOD PRESSURE 04/17/2024 10/16/2023 MAMMOGRAM 08/05/2024 08/05/2022, 07/14, 03/22/2020, Additional history exists DEPRESSION SCREENING 10/11/2024 10/12/2023 SMOKING Hx and SMOKELESS TOBACCO SCREENING 10/15/2024 10/16/2023 SCREENING FOR DIABETES 05/20/2025 05/20/2022, 2017 LIPID PANEL 05/21/2027 05/20/2022, 03/0 09/2022, 05/20/2022, Additional history exists HIB VACCINES Aged Out No longer eligi ble based on patient's age to complete this topic MENINGOCOCCAL VACCINES (ACWY) Aged Out No longer eligible based on patient's age to complete this topic Medical Devices Not on file Procedures Procedure Name Priority Date/Time Associated Diagnosis Comments HM MAMMOGRAPHY Routine 08/05/2022 COMPREHENSIVE METABOLIC PANEL Routine 05/20/2022 1:20 PM EST Essential hypertension OUTSIDE HDL Routine 05/20/2022 OUTSIDE POTASSIUM LEVEL Routine 05/20/2022 HM COLONOSCOPY FOR RESULT ENTRY ONLY Routine 01/21/2019 OUTSIDE GLUCOSE FASTING Routine 07/09/2017 from Last 3 Months or Most Recently Relevant to Health Maintenance Results * MAMMOGRAPHY FOR RESULT ENTRY ONLY (08/05/2022) Mara Castro [facility] * Comprehensive metabolic panel (05/20/2022 1:20 PM EST) Blood Mara Castro [employer] LAB BLOOD ORDE NEFTALI EXTERNAL NON-INTERFACED REF LAB * Outside Potassium Level (05/20/2022) Potassium level - External 4.5 3.4 - 5.0 mmol/L Historical Provider LAB BLOOD ORDERAB LES * (ABNORMAL) Outside HDL (05/20/2022) Pathologist [facility] HDL - External 90(A) 40 - 80 mg/dL Historical Provider LAB BLOOD ORDERAB LES * COLONOSCOPY FOR RESULT ENTRY ONLY (01/21/2019) Pathologist [facility] Colonoscopy tubular adenoma Historical Provider [facility] * Outside Glucose,Fasting (07/09/2017) Pathologist [facility] Glucose, fasting - External 77 65 - 99 mg/dL Historical Provider LAB BLOOD ORDERAB LES from Last 3 Months or Most Recently Relevant to Health Maintenance Care Teams Muffler Hand Relationship Specialty Start Date End Date Du Maldonado MD [address] [place] [address] [email or web address] PCP - General Internal Medicine 08/07/22 Additional Source Comments The information contained in this document represents components of the legal health record. It is not the complete legal health record.[facility]
--- OUTSIDE RECORDS SUMMARY | 2024-04-11 16:58 | XMS_ITS | Encounter Summary ---
Author Organization [facility] Address [phone] [facility] [place] [address] Care Team Providers Care Homicide Squad Sergeant Name Role Phone Iain Huston MD Unavailable Yanique Yao MD Unavailable [phone] Mikala Dallas MD Unavailable [phone] Jason Oglesby MD Unavailable [phone] Dionne Beard M1A1 T[employer] CREWMAN Unavailable [phone] Dionne Beard NP Primary Care Provider [phone] Mara Castro DIETETIC TECH Primary Care Provider Du Maldonado MD Primary Care Provider [phone] Encounter Details Date Type Department Care Team (Late st Contact Info) Description 07/22/2017 Ancillary Orders [facility], X-Ray - [address] [place] [address] Sarahi Glover PA [address] [place] [address] [email or web address] Cough Social History Tobacco Use Types Packs/Day Years Used Date Smoking Tobacco: Every Day Cigarettes Smokeless Tobacco: Never Alcohol Use Standard Drinks/Week Comments Yes 0 (1 standard drink = 0.6 oz pur e alcohol) few times a year Sex and Gender Information Value Date Recorded Sex Assigned at Female 08/24/2019 3:14 PM EDT Gender Identity Female 08/24/2019 3:14 PM EDT Sexual Orientation Not on file documented as of this encounter Plan of Treatment Upcoming Encounters Date Type Department Care Team (Late st Contact Info) Description 04/20/2024 3:45 PM EST Appointment [facility] Internal Medicine [address] [place] [address] Du Maldonado MD [address] [place], [place] [phone] documented as of this encounter Visit Diagnoses Diagnosis Cough documented in this encounter Care Teams Homicide Squad Sergeant Relationship Specialty Start Date End Date Dionne Beard NP [address] [place] [phone] PCP - General Family Medicine 03/25/17 10/28/17 Mara Castro CNP [address] [place] [address] PCP - General Internal Medicine 10/29/17 08/06/22 Du Maldonado MD [address] [place] [address] PCP - General Internal Medicine 08/07/22 Iain Huston MD [address] [place] [address] [address] [place] [address] Historical LMR Provider 12/29/16 06/14/19 Yanique Yao MD [address] [place] [address], [address] [place] [address] Historical LMR Provider 12/29/16 Mikala Dallas MD [address] [facility] [address], [address] [place] [address] Historical LMR Provider 12/29/16 06/14/19 Jason Oglesby MD [address] [facility], [address] [place] [address] Historical LMR Provider 12/29/16 06/14/19 Dionne Beard NP [address] [place] [phone] Historical LMR Provider 12/29/16 documented as of this encounter Additional Source Comments The information contained in this document represents components of the legal health record. It is not the complete legal health record.[facility]
--- OUTSIDE RECORDS SUMMARY | 2024-04-11 16:59 | XMS_ITS | Encounter Summary ---
Author Organization [facility] Address [phone] [facility] [place] [address] Care Team Providers Care Plaster Foreman Name Role Phone ZariMara grace Maria Isabel WRIGHT Primary Care Provider Du Maldonado MD Primary Care Provider [phone] Encounter Details Date Type Department Care Team (Late st Contact Info) Description 10/07/2019 Orders Only [place] [address] [place] [address] Provider, MD Marvin [address] [place] [address] Social History Tobacco Use Types Packs/Day Years Used Date Smoking Tobacco: Every Day Cigarettes 0.1 40 Smokeless Tobacco: Never Comments:5-10 cigarettes rehan [...] Info) Description 04/20/2024 3:45 PM EST Appointment [facility] Internal Medicine [address] [place], [place] [phone] Du Maldonado MD [address] [place] [address] [email or web address] documented as of this encounter Procedures Procedure Name Priority Date/Time Associated Diagnosis Comments OUTSIDE LAB Routine 09/30/2019 documented in this encounter Results * Outside Lab (09/30/2019) Historical Provider LAB BLOOD ORDERAB LES documented in this encounter Visit Diagnoses Not on filedocumented in this encounter Additional Health Concerns Assessment Noted Time PHQ-2 Depression Total Score: 0 03/25/19 19 1:15 PM EST documented as of this encounter Care Teams Plaster Foreman Relationship Specialty Start Date End Date Mara Castro CNP [address] [place] [address] [email or web address] PCP - General Internal Medicine 10/29/17 08/06/22 Du Maldonado MD [address] [place] [address] PCP - General Internal Medicine 08/07/22 documented as of this encounter Additional Source Comments The information contained in this document represents components of the legal health record. It is not the complete legal health record.[facility]
--- OUTSIDE RECORDS SUMMARY | 2024-04-11 16:59 | XMS_ITS | Encounter Summary ---
Author Organization [facility] Address [phone] [facility] [place] [address] Care Team Providers Care Director Of Sustainable Design Name Role Phone Mara Castro CNP Primary Care Provider Du Maldonado MD Primary Care Provider [phone] Reason for Referral * Consultation (Emergency) - Closed Specialty Diagnoses / Procedures Referred By Esteban sweeney Referred To Contact Diagnoses Right leg swelling Procedures US Lower Extremity Veins Duplex (Right) Mara Castro CNP [address] [place] [address] Email: [email or web address] Referral ID Status Reason Start Date Expiration Date Visits Re quested Visits Authorized [id number] Closed 06/26/2022 06/27/2023 1 1 Reason for Visit * Reason Onset Date Comments Leg Swelling 06/26/2022 Encounter Details Date Type Department Care Team (Late st Contact Info) Description 06/26/2022 Nurse Triage [facility] Internal Medicine [address] [place] [address] nAgeline Bailey RN [email or web address] Leg Swelling Social History Tobacco Use Types Packs/Day Years [...] work, study, or receive health care? No 2022 Education Answer Date Recorded Are you interested in help w ith more adult education (for example, completing high school, GED, job training, learning the Azerbaijani language, technical skills, or developing parenting skills)? No 2022 Food Answer Date Recorded Within the past 6 months we worried whether our food would run out before we got money to buy more. Never True 2022 Within the past 6 months the food we bought just didn't last and we didn't have enough money to get more. Never True Residential Stability Answer Date Recor ded What is your housing situation today? I have jericho silverman 2022 How many times have you move d in the past 12 months? Zero (I did not move) 2022 Paying for Meds Answer Date Recorded Do you have trouble paying for medicines? No 2022 Paying Utility Bills Answer Date Record ed Do you have trouble paying your heating or elect ricity bill? No 2022 Transportation Answer Date Recorded Has the lack of transportati on kept you from medical appointments or from getting medications? No 2022 Unemployment Answer Date Recorded Are you currently unemployed or working on a part-time or temporary basis, and looking for work? No 2022 Sex and Gender Information Value Date Recorded Sex Assigned at Female 08/24/2019 3:14 PM EDT Gender Identity Female 08/24/2019 3:14 PM EDT Sexual Orientation Not on file documented as of this encounter Progress Notes * Gabriel Mosqueda - 06/26/2022 2:44 PM EDT Faxed order 2x (2:10 with confirmation) and patient was there and stated they had not received it (refaxed 2:39 with confirmation) LVM letting patient know. * Cora Bradford RN - 06/26/2022 2:21 PM EDT Spoke with patient. She verbalized understanding of recommendations * Mara Castro CNP - 06/26/2022 2:00 PM EDT I do recommend u/s r/o DVT, and have ordered this to be performed at [facility]. However, the results willnot be available as quickly if done outpatient rather than at the ED> In the interim ok to drop amlodipine to 5 mg daily and monitor swelling. * Angeline Bailey RN - 06/26/2022 12:27 PM EDT Pt reports BLE, states right edema since last week, states this has started after starting amlodipine, denied CP , reports SOB with activity starting last week as well, reports redness, denied area is hot to touch, denied any calf pain, pt denied any leg pain at all. Pt advised to go to ED R/O DVT,eval/tx due to fluid overload BLE edema and SOB, pt denied would like follow up from PCP. Pt educated on risk with delay in care, [place], stroke, verbalized understanding and refused to go to ED. Pt informed message will be relayed to medical provider for follow up. Nurse Triage Encounter Note Reason for Triage Kyra Lenz contacted office for Leg Swelling Call Disposition Call Pcp Patient/caregiver understands and will follow disposition: Yes Patient/caregiver understands and will follow care advice: No, Wishes To Speak To Pcp Disposition Comments: Protocols used: Leg Swelling And Vevhs-Fahzw-Ns Care Advice Given Care Advice Patient/Caregiver understands and will follow care advice?: No, wishes to speak to PCP GO TO ED/C NOW (OR TO OFFICE WITH PCP APPROVAL): NOTE TO TRIAGER: * Use nurse judgment to select the most appropriate source of care. Consider both the urgency of the patient's symptoms AND what resources may be needed to evaluate and manage the patient. * Then tell the caller: Go to ED. Leave NOW. SOURCES OF CARE: * TRIAGER CAUTION: In selecting the most appropriate care site, you must consider both the severityof the patient's symptoms AND what resources are available at that care site. * ED: Patients who may need surgery, sound seriously ill or may be unstable need to be sent to an ED. Likewise, so do most patients with complex medical problems and serious symptoms. * UCC: Some UCCs can manage patients who are stable and have less serious symptoms (e.g., minor illnesses and injuries). The triager must know the UCC capabilities before sending a patient there. If unsure, call ahead. * OFFICE: If patient sounds stable and not seriously ill, consult PCP (or follow your office policy) to see if patient can be seen NOW in office. REASSURANCE AND EDUCATION - HEAT EDEMA: * Many people get heat edema during the first few days of hot weather or after traveling to a warmer climate. * There may be mild swelling of the feet and ankles and some puffiness of the fingers. * Typically, your body adjusts to the higher temperatures (acclimatizes) in a couple of days and the swelling resolves. * Continue to drink plenty of water. Do not take extra medicine to increase fluid loss from your body (diuretics). * Here is some care advice that should help. LEG SWELLING OR EDEMA: * Elevate your legs or try to lie down one or two times a day for 20 minutes. * Avoid socks with an elastic band at the top. * Wear comfortable shoes. CALL BACK IF: * Swelling becomes worse * Swelling becomes red or painful to the touch * Calf pain occurs and becomes constant * You become worse REASSURANCE AND EDUCATION - VARICOSE VEINS: * Appear as bulging winding ('worm-like') blue blood vessels in the thigh and lower leg. * Patients with varicose veins will often report a mild swelling in their legs after a long day of standing or walking. The swelling usually goes away with rest and leg elevation. * Here is some care advice that should help. VARICOSE VEINS - TREATMENT: * Try to rest and elevate your legs above your heart a couple times each day for 15 minutes. * Walking is good for your circulation. This helps pump the blood out of the veins. * Avoid standing for a long time in one place. * Support hose may be helpful. Put them on first thing in the morning when the swelling is least. * If you are overweight, talk with your doctor (or TALENT DEVELOPMENT MANAGER/PA) about a weight loss program. CALL BACK IF: * Swelling becomes worse * Swelling becomes red or painful to the touch * Calf pain occurs and becomes constant * You become worse REASSURANCE AND EDUCATION - LOCALIZED ITCHING WITH PUFFINESS OR SWELLING: * Since it is itchy and just mildly puffy or swollen in just one area, it is probably not serious. It could be an insect bite, a minor allergic reaction, or some type of other skin irritation. * It should go away in 3 to 4 days. * Here is some care advice that should help. HYDROCORTISONE CREAM FOR AN ITCHY AREA OF SWELLING: * Put 1% hydrocortisone cream on the itchy area 3 times a day. Use it for 3 to 5 days. This will help decrease the itching. * This is an yhyd-hcv-xfmvfye (OTC) drug. You can buy it at the drugstore. * Some people like to keep the cream in the refrigerator. It feels even better if the cream is usedwhen it is cold. * CAUTION: Do not use hydrocortisone cream for more than 1 week without talking to your doctor. * CAUTION: Do not use if the cause is ringworm or impetigo. * Read the instructions and warnings on the package insert for all medicines you take. ANTIHISTAMINE MEDICINES FOR ITCHING OR SWELLING: * You can take cetirizine or loratadine by mouth to reduce itching and swelling. * They are ddgf-mph-dnqclco (OTC) antihistamine medicines. You can buy them at the drugstore. * CETIRIZINE (REACTINE, ZYRTEC): The adult dose is 10 mg and you take it once a day. Cetirizine is available in the [place] as Zyrtec and in [place] as Reactine. * LORATADINE (ALAVERT, CLARITIN): The adult dose is 10 mg and you take it once a day. Loratadine isavailable in the [place] as Alavert and Claritin; it is available in [place] as Claritin. ANTIHISTAMINE MEDICINES - EXTRA NOTES AND WARNINGS: * Antihistamine medicines can be used to treat allergic reactions, allergies, hay fever, hives, anditching. * Diphenhydramine (Benadryl) is a FIRST GENERATION ANTIHISTAMINE medicine. It causes more sleepiness than the newer second generation antihistamine medicines. The adult dosage of Benadryl is 25 to 50mg by mouth and you can take it up to 4 times a day. * SECOND GENERATION ANTIHISTAMINES such as cetirizine and loratadine have fewer side effects than first generation antihistamines. Loratadine is one of the least sedating antihistamines. * CAUTION: Antihistamine medicines can make you sleepy. Do not drink alcohol, drive, or operate dangerous machinery while taking this drug. It can also worsen dry eyes by decreasing natural tearing. * Before taking any medicine, read all the instructions on the package. CALL BACK IF: * Swelling persists over 3 days * Swelling becomes red or painful to the touch * You become worse Patient will call back with additional questions or if symptoms change or worsen Angeline Bailey RN Reason for Disposition and Assessment Reason for Disposition ??? SEVERE swelling (e.g., swelling extends above knee, entire leg is swollen, weeping fluid) Answer Assessment - Initial Assessment Questions 1. ONSET: When did the swelling start? (e.g., minutes, hours, days) Swelling began 1 week ago 2. LOCATION: What part of the leg is swollen? Are both legs swollen or just one leg? Rt leg swelling, foot, ankle, and calf 3. SEVERITY: How bad is the swelling? (e.g., localized; mild, moderate, severe) Calf area down 4. REDNESS: Does the swelling look red or infected? Pt reports redness at top of foot, negative homans sign, denied pain in calf 5. PAIN: Is the swelling painful to touch? If Yes, ask: How painful is it? (Scale 1-10; mild, moderate or severe) Pt denied pain in leg at all 6. FEVER: Do you have a fever? If Yes, ask: What is it, how was it measured, and when did it start? Pt denied fever 7. CAUSE: What do you think is causing the leg swelling? Pt reports leg swelling did not start until after starting amlodipine 8. MEDICAL HISTORY: Do you have a history of heart failure, kidney disease, liver failure, or cancer? Pt denied , reports polycythemia 9. RECURRENT SYMPTOM: Have you had leg swelling before? If Yes, ask: When was the last time? What happened that time? Yes reports seen by Mara 10. OTHER SYMPTOMS: Do you have any other symptoms? (e.g., chest pain, difficulty breathing) Pt denied CP, reports slight SOB, started about 1 week 11. : Is there any chance you are ? When was your last menstrual period? N/A Protocols used: LEG SWELLING AND [id number] documented in this encounter Plan of Treatment Upcoming Encounters Date Type Department Care Team (Late st Contact Info) Description 04/20/2024 3:45 PM EST Appointment [facility] Internal Medicine [address] [place], [place] [phone] Du Maldonado MD [address] [place], [place] [id number] [email or web address] documented as of this encounter Procedures Procedure Name Priority Date/Time Associated Diagnosis Comments US LOWER EXTREMITY VEINS DUPLEX (RIGHT) STAT 06/26/2022 2:01 PM EDT Right leg swelling documented in this encounter Visit Diagnoses Diagnosis Right leg swelling- Primary documented in this encounter Additional Health Concerns Assessment Noted Time PHQ-2 Depression Total Score: 0 02/19/20 22 3:06 PM EST documented as of this encounter Care Teams Director Of Sustainable Design Relationship Specialty Start Date End Date Mara Castro CNP [address] [place] [address] PCP - General Internal Medicine 10/29/17 08/06/22 Du Maldonado MD [address] [place], [place] [phone] PCP - General Internal Medicine 08/07/22 documented as of this encounter Additional Source Comments The information contained in this document represents components of the legal health record. It is not the complete legal health record.[facility]
--- OUTSIDE RECORDS SUMMARY | 2024-04-11 16:59 | XMS_ITS | Encounter Summary ---
Author Organization [facility] Address [phone] [facility] [place] [address] Care Team Providers Care Filter Cleaner Name Role Phone Du Maldonado MD Primary Care Provider [phone] Reason for Visit * Reason Comments Medication Refill Encounter Details Date Type Department Care Team (Late st Contact Info) Description 08/08/2022 Refill [facility] Internal Medicine [address] [place], [place] [phone] Mara Castro, SENIOR SOFTWARE ARCHITECT [address] [place] [address] [email or web address] Medication Refill Social History Tobacco Use Types [...] high school, GED, job training, learning the [place] language, technical skills, or developing parenting skills)? [...] 2022 Digital Access Answer Date Recorded No 08/07/2022 No 08/07/2022 No 08/07/2022 Reliable internet access at home? Not on file 08/07/2022 Device with a working camera? Not on file Sex and Gender Information Value Date Recorded Sex Assigned at Female 08/24/2019 3:14 PM EDT Gender Identity Female 08/24/2019 3:14 PM EDT Sexual Orientation Not on file documented as of this encounter Progress Notes * Gabriel Guaman - 08/08/2022 8:54 AM EDT INSTRUCTIONS FOR CLINICAL STAFF (Steps for MA/RN to complete): > At least one medication below does not meet criteria. Please see medication- specific renewal instructions below. > Labs due: Remind patient to get lab tests done soon. > Orders needed: Please click BPA/SmartSet to enter. ??? BMP - Needs order Visit Info ??? Last visit: 05/19/2022 (ADRIANA Alvarez [facility]) > Requested f/u: Return in about 6 months (around 11/19/2022) for Annual physical. ??? Upcoming visit: 11/26/2022 ([facility]) ACTIONS TAKEN BY Gabriel Guaman - Refill protocol passed: no action needed. ACEi / ARBs / Diuretic Rx Protocol (on HTN Registry) - valsartan Criteria not met; renew for up to 3 months. Rx duration can be longer at prescriber discretion if labs are stable and dose is appropriate for renal function. ??? Visit in the past 12 months: Yes ??? Clinical criteria: - BP within last 6 months: 126/72 on 05/19/2022 - BMP within past year: No - Cr, GFR and K are normal: No Lab Results Component Value Date Potassium level - External 4.3 2022 Creatinine, serum - External 0.67 (*) 2022 Lab Results Component Value Date Creatinine, serum - External 0.67 (*) 2022 Health Maintenance Labs Due / Due Soon Topic Date Due ??? SCREENING FOR DIABETES 07/09/2020 ??? LIPID PANEL 07/09/2022 documented in this encounter Plan of Treatment Upcoming Encounters Date Type Department Care Team (Late st Contact Info) Description 04/20/2024 3:45 PM EST Appointment [facility] Internal Medicine [address] [place] [address] Du Maldonado MD [address] [place] [address] [email or web address] documented as of this encounter Visit Diagnoses Diagnosis Hypertension Unspecified essential hypertension documented in this encounter Additional Health Concerns Assessment Noted Time PHQ-2 Depression Total Score: 0 02/19/20 22 3:06 PM EST documented as of this encounter Care Teams Filter Cleaner Relationship Specialty Start Date End Date Du Maldonado MD [address] [place] [address] [email or web address] PCP - General Internal Medicine 08/07/22 documented as of this encounter Additional Source Comments The information contained in this document represents components of the legal health record. It is not the complete legal health record.[facility]
== END 2024-04-11 12:00 | disposition home or self-care (01) ==
LOC: HO.BBR 11:59
PROVIDERS: PCP Internal Medicine; Visit Provider Internal Medicine
DX: D75.1 Secondary polycythemia (principal)
CPT/HCPCS: 85018; 99195

== ENCOUNTER 2024-05-06 07:47 | Outpatient (REF) | payer OTHER, SELFPAY ==
--- OUTSIDE RECORDS SUMMARY | 2024-05-06 07:50 | XMS_ITS | Encounter Summary ---
Author Organization [facility] Address [phone] [facility] [employer] [place] [address] Care Team Providers Care Steam Drier Operator Name Role Phone Iain Huston MD Unavailable Yanique Yao MD Unavailable [phone] Mikala [place] MD Unavailable [phone] Jason Oglesby MD Unavailable [phone] Dionne Beard S IRON WORKER Unavailable [phone] Dionne Beard NP Primary Care Provider [phone] Mara Castro LOGISTICS ENGINEER Primary Care Provider Du Maldonado MD Primary Care Provider [phone] Encounter Details Date Type Department Care Team (Late st Contact Info) Description 07/22/2017 Ancillary Orders [facility], X-Ray - [address] [place] [address] Sarahi Glover PA [address] [place] [address] [email or web address] Cough Social History Tobacco Use Types Packs/Day [...] Care Team (Late st Contact Info) Description 10/25/2024 3:30 PM EDT Appointment [facility] Internal Medicine [address] [place] [address] Du Maldonado MD [address] [place], [place] [phone] documented as of this encounter Visit Diagnoses Diagnosis Cough documented in this encounter Care Teams Steam Drier Operator Relationship Specialty Start Date End Date Dionne Beard NP [address] [place] [phone] PCP - General Family Medicine 03/25/17 10/28/17 Mara Castro CNP [address] [place] [address] PCP - General Internal Medicine 10/29/17 08/06/22 Du Maldonado MD [address] [place] [address] PCP - General Internal Medicine 08/07/22 Iain Huston MD [address] [place] [address] [address] [place] [address] Historical LMR Provider 12/29/16 06/14/19 Yanique Yao MD [address] [place] [address], [address] [place] [address] Historical LMR Provider 12/29/16 Mikala [place] MD [address] [facility] [address], [address] [place] [address] Historical LMR Provider 12/29/16 06/14/19 Jason Oglesby MD [address] [facility] [place] [address] Historical LMR Provider 12/29/16 06/14/19 Dionne Beard NP [address] [place] [phone] Historical LMR Provider 12/29/16 documented as of this encounter Additional Source Comments The information contained in this document represents components of the legal health record. It is not the complete legal health record.[facility]
--- OUTSIDE RECORDS SUMMARY | 2024-05-06 07:50 | XMS_ITS | Encounter Summary ---
Author Organization [facility] Address [phone] [facility] [place] [address] Care Team Providers Care Paint Line Production Supervisor Name Role Phone Du Maldonado MD Primary Care Provider [phone] Reason for Visit * Reason Comments Medication Refill Encounter Details Date Type Department Care Team (Late st Contact Info) Description 08/08/2022 Refill [facility] Internal Medicine [address] [place], [place] [phone] Mara Castro, FISHING ROD ASSEMBLER [address] [place] [address] [email or web address] Medication Refill Social History Tobacco Use Types [...] high school, GED, job training, learning the [place] language, technical skills, or developing parenting skills)? [...] this encounter Progress Notes * Gabriel Guaman MA - 08/08/2022 8:54 AM EDT INSTRUCTIONS FOR CLINICAL STAFF (Steps for MA/RN to complete): > At least one medication below does not meet criteria. Please see medication- specific renewal instructions below. > Labs due: Remind patient to get lab tests done soon. > Orders needed: Please click BPA/SmartSet to enter. ??? BMP - Needs order Visit Info ??? Last visit: 05/19/2022 (ADRIANA Alvarez [facility]) > Requested f/u: Return in about 6 months (around 11/19/2022) for Annual physical. ??? Upcoming visit: 11/26/2022 (ADRIANA Alvarez [facility]) ACTIONS TAKEN BY Gabriel Guaman - Refill [...] Info) Description 10/25/2024 3:30 PM EDT Appointment [facility] Internal Medicine [address] [place] [address] Du Maldonado MD [address] [place] [address] [email or web address] documented as of this encounter Visit Diagnoses Diagnosis Hypertension Unspecified essential hypertension documented in this encounter Additional Health Concerns Assessment Noted Time PHQ-2 Depression Total Score: 0 02/19/20 22 3:06 PM EST documented as of this encounter Care Teams Paint Line Production Supervisor Relationship Specialty Start Date End Date Du Maldonado MD [address] [place] [address] [email or web address] PCP - General Internal Medicine 08/07/22 documented as of this encounter Additional Source Comments The information contained in this document represents components of the legal health record. It is not the complete legal health record.[facility]
--- OUTSIDE RECORDS SUMMARY | 2024-05-06 07:50 | XMS_ITS | Encounter Summary ---
Author Organization [facility] Address [phone] [facility] [place] [address] Care Team Providers Care Exercise Scientist Name Role Phone Du Maldonado MD Primary Care Provider [phone] Reason for Visit * Reason Comments Medication Refill Encounter Details Date Type Department Care Team (Late st Contact Info) Description 01/11/2024 Refill [facility] Internal Medicine [address] [place] [address] Du Maldonado MD [address] [place] [address] [email or web address] Medication Refill Social History Tobacco Use Types [...] high school, GED, job training, learning the Maur[place] language, technical skills, or developing parenting skills)? [...] Info) Description 10/25/2024 3:30 PM EDT Appointment [facility] Internal Medicine [address] [facility] [place] [address] Du Maldonado MD [address] [place] [address] documented as of this encounter Visit Diagnoses Diagnosis Hypertension Unspecified essential hypertension documented in this encounter Additional Health Concerns Assessment Noted Time PHQ-2 Depression Total Score: 0 10/12/19 24 12:19 PM EDT documented as of this encounter Care Teams Exercise Scientist Relationship Specialty Start Date End Date Du Maldonado MD [address] [place] [address] PCP - General Internal Medicine 08/07/22 documented as of this encounter Additional Source Comments The information contained in this document represents components of the legal health record. It is not the complete legal health record.[facility]
--- OUTSIDE RECORDS SUMMARY | 2024-05-06 07:50 | XMS_ITS | Encounter Summary ---
Author Organization [facility] Address [phone] [facility] [place] [address] Care Team Providers Care Washer Machine Name Role Phone ZariMara grace Maria Isabel WRIGHT Primary Care Provider Du Maldonado MD Primary Care Provider [phone] Encounter Details Date Type Department Care Team (Late st Contact Info) Description 10/07/2019 Orders Only [place] [address] [place] [address] Provider, MD Marvin [address] [place] [address] Social History Tobacco Use Types Packs/Day [...] Info) Description 10/25/2024 3:30 PM EDT Appointment [facility] Internal Medicine [address] [place], [place] [phone] Du Maldonado MD [address] [place] [address] [email or web address] documented as of this encounter Procedures Procedure [...] documented as of this encounter Care Teams Washer Machine Relationship Specialty Start Date End Date Mara Castro CNP [address] [place] [address] [email or web address] PCP - General Internal Medicine 10/29/17 08/06/22 Du Maldonado MD [address] [place] [address] PCP - General Internal Medicine 08/07/22 documented as of this encounter Additional Source Comments The information contained in this document represents components of the legal health record. It is not the complete legal health record.[facility]
--- OUTSIDE RECORDS SUMMARY | 2024-05-06 07:50 | XMS_ITS | Encounter Summary ---
Author Organization [facility] Address [phone] [facility] [employer] [place] [address] Care Team Providers Care Health And Safety Technician Name Role Phone Mara Castro CNP Primary Care Provider Du Maldonado MD Primary Care Provider [phone] Reason for Referral * Consultation (Emergency) - Closed Specialty Diagnoses / Procedures Referred By Esteban sweeney Referred To Contact Diagnoses Right leg swelling Procedures US Lower Extremity Veins Duplex (Right) Mara Castro CNP [address] [place] [address] Email: [email or web address] Referral ID Status Reason Start Date Expiration Date Visits Re quested Visits Authorized [id number] Closed 06/26/2022 06/27/2023 1 1 Reason for Visit * Reason Onset Date Comments Leg Swelling 06/26/2022 Encounter Details Date Type Department Care Team (Late st Contact Info) Description 06/26/2022 Nurse Triage [facility] Internal Medicine [address] [place] [address] Angeline Bailey RN [email or web address] Leg Swelling Social History Tobacco Use Types [...] high school, GED, job training, learning the [place] Islander language, technical skills, or developing parenting skills)? [...] have ordered this to be performed at [facility]. However, the results willnot be available as [...] educated on risk with delay in care, PA, stroke, verbalized understanding and refused to go [...] Disposition Comments: Protocols used: Leg Swelling And Ycnhq-Osubg-Pa Care Advice Given Care Advice Patient/Caregiver understands [...] are overweight, talk with your doctor (or ELECTRICAL TIMING DEVICE CALIBRATOR/PA) about a weight loss program. CALL BACK [...] decrease the itching. * This is an zpnx-cbz-oldrdax (OTC) drug. You can buy it at [...] reduce itching and swelling. * They are xvwo-wps-skwkmlj (OTC) antihistamine medicines. You can buy them [...] period? N/A Protocols used: LEG SWELLING AND ZKVZE-NRBTZ-VN documented in this encounter Plan of Treatment Upcoming Encounters Date Type Department Care Team (Late st Contact Info) Description 10/25/2024 3:30 PM EDT Appointment [facility] Internal Medicine [address] [place], [place] [phone] Du Maldonado MD [address] [place], [place] [phone] [email or web address] documented as of this encounter Procedures Procedure [...] documented as of this encounter Care Teams Health And Safety Technician Relationship Specialty Start Date End Date Mara Castro CNP [address] [place] [address] PCP - General Internal Medicine 10/29/17 08/06/22 Du Maldonado MD [address] [place], [place] [phone] PCP - General Internal Medicine 08/07/22 documented as of this encounter Additional Source Comments The information contained in this document represents components of the legal health record. It is not the complete legal health record.[facility]
--- OUTSIDE RECORDS SUMMARY | 2024-05-06 07:50 | XMS_ITS | Encounter Summary ---
Author Organization [facility] Address [phone] [facility] [place] [address] Care Team Providers Care Christmas Tree Farm Worker Name Role Phone Du Maldonado MD Primary Care Provider [phone] Reason for Visit * Reason Comments Follow Up Visit 6 mon f/u Encounter Details Date Type Department Care Team (Latest Contact Info) Description 04/20/2024 3:45 PM EST Office Visit [facility] Internal Medicine [address] [place] [address] Du Maldonado MD [address] [place] [address] [email or web address] Colon cancer screening (Primary Dx); Screening for human immunodeficiency virus; Primary hypertension; Impaired fasting glucose; Elevated LFTs; Mixed hyperlipidemia; Elevated glucose Social History Tobacco Use Types Packs/Day Years [...] high school, GED, job training, learning the [place] Citizen language, technical skills, or developing parenting skills)? [...] your housing situation today? I have jericho sing 10/12/2023 How many times have you move [...] on file documented as of this encounter Last Filed Vital Signs Vital Sign Reading Time Taken Comments Blood Pressure 122/60 04/20/2024 3:34 PM EST Pulse 90 04/20/2024 3:34 PM EST Temperature 36.4 ??C (97.6 ??F) 04/20/2024 3:34 PM ES T Respiratory Rate 18 04/20/2024 3:34 PM EST Oxygen Saturation 97% 04/20/2024 3:34 PM EST Inhaled Oxygen Concentration - - Weight 81.1 kg (178 lb 12.8 oz) 04/20/2024 3:34 PM EST Height 167.9 cm (5' 6.1 ) 04/20/2024 3:34 PM EST Body Mass Index 28.77 04/20/2024 3:34 PM EST documented in this encounter Progress Notes * Du Maldonado MD - 04/20/2024 3:45 PM EST Subjective: Patient ID: Kyra Lenz is a 59 y.o. female. This patient comes in for a 6-month follow-up hypertension, dyslipidemia in the setting of smoking history though patient now down to a couple cigarettes daily. 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 Patient doing well on below stated medication. The Paxil is for anxiety for control and it is working well, there is no panic attacks. She denies any headaches chest pain shortness of breath panic attacks depression. Current Outpatient Medications Ordered in [facility]: amLODIPine (NORVASC) 10 MG tablet, Take 1 tablet (10 mg total) by mouth every morning., Abbrev. Dose: See instructions for application aspirin 81 MG EC tablet, 1 tablet, Abbrev. Dose: See instructions for application PARoxetine (PAXIL) 30 MG tablet, Take 1 tablet (30 mg total) by mouth every morning., Abbrev. Dose:See instructions for application valsartan (DIOVAN) 160 MG tablet, Take 1 tablet (160 mg total) by mouth daily., Abbrev. Dose: See instructions for application Social History Socioeconomic History Marital status: /Civil Union Spouse name: Not on file Number of children: Not on file Years of education: Not on file Highest education level: Not on file Occupational History Not on file Tobacco Use Smoking status: Every Day Packs/day: 0.25 Years: 0.3 packs/day for 40.0 years (10.0 ttl pk-yrs) Types: Cigarettes Smokeless tobacco: Never Tobacco comments: 5-10 cigarettes daily Vaping Use Vaping status: never used Substance and Sexual Activity Alcohol use: Yes Comment: 3-4 drinks, 2-4 x month Drug use: No Sexual activity: Not on file Other Topics Concerns: Not on file Social History Narrative . 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 Constitutional: Appearance: She is well-developed. HENT: Head: Normocephalic and atraumatic. Eyes: General: No scleral icterus. Conjunctiva/sclera: Conjunctivae normal. Cardiovascular: Rate and Rhythm: Normal rate and regular rhythm. Heart sounds: Normal heart sounds. No murmur heard. No friction rub. No gallop. Pulmonary: Effort: Pulmonary effort is normal. No respiratory distress. Breath sounds: Normal breath sounds. No wheezing or rales. Chest: Chest wall: No tenderness. Musculoskeletal: Cervical back: Normal range of motion and neck supple. Right lower leg: No edema. Left lower leg: No edema. Skin: General: Skin is warm and dry. Neurological: Mental Status: She is alert and oriented to person, place, and time. Cranial Nerves: No cranial nerve deficit. Psychiatric: Behavior: Behavior normal. Thought Content: Thought content normal. Judgment: Judgment normal. Blood pressure 122/60, pulse 90, temperature 36.4 ??C (97.6 ??F), temperature source Temporal, resp. rate 18, height 167.9 cm (5' 6.1 ), weight 81.1 kg (178 lb 12.8 oz), SpO2 97%. Assessment/Plan: Problem List Items Addressed This Visit Hypertension Check electrolytes kidney function on the valsartan and amlodipine. No lower extremity edema with the amlodipine at 10 mg. Blood pressure well-controlled. Relevant Orders Basic metabolic panel (Completed) Elevated LFTs Mixed hyperlipidemia Will recheck fasting lipid profile to determine if the patient would be benefiting from a low statin therapy. Continue aspirin 81 mg daily. Relevant Orders Lipid panel (Completed) Impaired fasting glucose Last A1c was okay but will repeat twice year or maybe once a year depending on the outcome this time. This can be done over [facility]. Relevant Orders Hemoglobin A1c (Completed) Other Visit Diagnoses Colon cancer screening - Primary Screening for human immunodeficiency virus Elevated glucose documented in this encounter Miscellaneous Notes * Assessment & Plan Note - Du Maldonado MD - 04/20/2024 4:15 PM ESTAssociated Problem(s): Mixed hyperlipidemia Will recheck fasting lipid profile to determine if the patient would be benefiting from a low statin therapy. Continue aspirin 81 mg daily. * Assessment & Plan Note - Du Maldonado MD - 04/20/2024 4:15 PM ESTAssociated Problem(s): Hypertension Check electrolytes kidney function on the valsartan and amlodipine. No lower extremity edema with the amlodipine at 10 mg. Blood pressure well-controlled. * Assessment & Plan Note - Du Maldonado MD - 04/20/2024 4:15 PM ESTAssociated Problem(s): Impaired fasting glucose Last A1c was okay but will repeat twice year or maybe once a year depending on the outcome this time. This can be done over [facility]. documented in this encounter Plan of Treatment Upcoming Encounters Date Type Department Care Team (Late st Contact Info) Description 10/25/2024 3:30 PM EDT Appointment [facility] Medical [facility] Internal Medicine [address] [place] [address] Du Maldonado MD [address] [place] [address] [email or web address] documented as of this encounter Visit Diagnoses Diagnosis Colon cancer screening- Primary Special screening for malignant neoplasms, colon Screening for human immunodeficiency virus Special screening examination for other specified viral diseases Primary hypertension Unspecified essential hypertension Impaired fasting glucose Elevated LFTs Other abnormal blood chemistry Mixed hyperlipidemia Elevated glucose Other abnormal glucose documented in this encounter Additional Health Concerns Assessment Noted Time PHQ-2 Depression Total Score: 0 10/12/19 24 12:19 PM EDT documented as of this encounter Care Teams Christmas Tree Farm Worker Relationship Specialty Start Date End Date Du Maldonado MD [address] [place] [address] [email or web address] PCP - General Internal Medicine 08/07/22 documented as of this encounter Additional Source Comments The information contained in this document represents components of the legal health record. It is not the complete legal health record.[facility]
--- OUTSIDE RECORDS SUMMARY | 2024-05-06 07:50 | XMS_ITS | Encounter Summary ---
Author Organization [facility] Address [phone] [facility] [place] [address] Care Team Providers Care Litigation Support Analyst Name Role Phone Du Maldonado MD Primary Care Provider [phone] Reason for Visit * Reason Comments Medication Refill Encounter Details Date Type Department Care Team (Late st Contact Info) Description 04/25/2024 Refill [facility] Internal Medicine [address] [place] [address] Du Maldonado MD [address] [place] [address] [email or web address] Medication Refill Social History Tobacco Use Types [...] high school, GED, job training, learning the [place] language, technical skills, or developing parenting skills)? [...] as of this encounter Progress Notes * Joyce Pemberton CMA - 04/25/2024 11:18 AM EST Rx Care Gap Status - Instructions for Clinical Staff (prescriber discretion applies): > At least one medication below does not meet full criteria. Please see medication-specific renewal instructions below. > Labs due: Remind patient to get lab tests done soon. > Orders needed: Please click BPA/SmartSet to enter. BMP - Needs order * Visit Info Last visit: 04/20/2024 Du Maldonado MD - Internal Medicine [facility] > Requested f/u: Return in about 6 months (around 10/18/2024) for Annual physical. Upcoming visit: 10/25/2024 Du Maldonado MD - Internal Medicine [facility] ACTIONS TAKEN BY Joyce Pemberton CMA - Updated Rx duration per protocol ACEi / ARBs / Diuretic Rx Protocol (on HTN Registry) - valsartan Criteria not met; renew for up to 3 months. Rx duration can be longer at prescriber discretion if labs are stable and dose is appropriate for renal function. Visit in the past 14 months: Yes Clinical criteria: - BP within last 6 months: 122/60 on 04/20/2024 - BMP within past year: No - Cr, GFR and K are normal: No Lab Results Component Value Date Potassium level - External 4.5 05/20/2022 Creatinine, serum - External 0.65 (*) 05/20/2022 Lab Results Component Value Date Creatinine, serum - External 0.65 (*) 05/20/2022 Creatinine, serum - External 0.67 (*) 2022 No Health Maintenance Labs Overdue documented in this encounter Plan of Treatment Upcoming Encounters Date Type Department Care Team (Late st Contact Info) Description 10/25/2024 3:30 PM EDT Appointment [facility] Internal Medicine [address] [place] [id number] Du Maldonado MD [address] [place] [address] [email or web address] documented as of this encounter Visit Diagnoses Diagnosis Hypertension Unspecified essential hypertension documented in this encounter Additional Health Concerns Assessment Noted Time PHQ-2 Depression Total Score: 0 10/12/19 24 12:19 PM EDT documented as of this encounter Care Teams Litigation Support Analyst Relationship Specialty Start Date End Date Du Maldonado MD [address] [place] [id number] [email or web address] PCP - General Internal Medicine 08/07/22 documented as of this encounter Additional Source Comments The information contained in this document represents components of the legal health record. It is not the complete legal health record.[facility]
--- OUTSIDE RECORDS SUMMARY | 2024-05-06 07:50 | XMS_ITS | Clinical Summary ---
Author Organization [facility] Address [phone] [facility] [place] [address] Care Team Providers Care Environmental Sustainability Manager Name Role Phone Du Maldonado MD Primary Care Provider [phone] Allergies Active Allergy Reactions Criticality Noted Date Comments Lisinopril Cough 07/22/2017 Sulfa (Sulfonamide Antibiotics) Hives,Itching 1 04/12/2016 Medications Medication Sig Dispensed Refills Start Date End Date Status aspirin 81 MG EC tablet 1 tablet Active PARoxetine (PAXIL) 30 MG tabletIndications :Anxiety and depression Take 1 tablet (30 mg total) by mouth every morning. 90 tablet 3 4 Active amLODIPine (NORVASC) 10 MG tablet Take 1 tablet (10 mg total) by mouth every morning. 90 tablet 2 4 Active valsartan (DIOVAN) 160 MG tabletIndications :Hypertension TAKE 1 TABLET (160 MG TOTAL) BY MOUTH DAILY. 90 tablet 5 Active nicotine polacrilex (COMMIT) 4 MG lozengeIndication s:Cigarette nicotine dependence without complication Place 1 lozenge (4 mg total) inside cheek every 30 (thirty) minutes as needed for smoking cessation (max 20 pieces per day). 144 lozenge 6 4 04/20/19 25 Discontinued(No longer taking) valsartan (DIOVAN) 160 MG tabletIndications :Hypertension Take 1 tablet (160 mg total) by mouth daily. 90 tablet 1 4 04/25/19 25 Discontinued nicotine (NICODERM CQ) 14 mg/24 hrIndications:Cig arette nicotine dependence without complication PLACE 1 PATCH ONTO THE SKIN DAILY. IF INSOMNIA REMOVE AT BEDTIME 28 patch 3 4 04/20/19 25 Discontinued(No longer taking) Active Problems Problem Noted Date Diagnosed Date [...] Impaired fasting glucose 05/19/2022 Assessment & Plan (04/20/2024 4:15 PM EST): Last A1c was okay but will repeat twice year or maybe once a year depending on the outcome this time. This can be done over [facility]. Assessment & Plan (05/19/2022 10:23 PM EST): [...] accordingly. Mixed hyperlipidemia 03/06/2020 Assessment & Plan (04/20/2024 4:15 PM EST): Will recheck fasting lipid profile to determine if the patient would be benefiting from a low statin therapy. Continue aspirin 81 mg daily. Assessment & Plan (05/19/2022 10:23 PM EST): Check lipids, recommend resuming statin as indicated Assessment & Plan (03/06/2020 3:26 PM EST): Check lipid panel with next labs Hepatic hemangioma 05/20/2018 Hypertension 08/31/2017 Assessment & Plan (04/20/2024 4:15 PM EST): Check electrolytes kidney function on the valsartan and amlodipine. No lower extremity edema with the amlodipine at 10 mg. Blood pressure well-controlled. Assessment & Plan (05/19/2022 10:23 PM EST): [...] prior to 2017 and completed PPHP at [place] [place] in January 2020. Assessment & Plan (05/19/2022 10:24 PM EST): Will reduce buspar to 5 mg daily x 2 weeks, then if feeling well will d/c entirely Assessment & Plan (03/06/2020 3:25 PM EST): Continue all medications as prescribed Encounters Date Type Department Care Team Description 04/25/2024 Refill [facility] Internal Medicine [address] [place] [address] Du Maldonado MD Medication Refill 04/20/2024 3:45 PM EST Office Visit [facility] Internal Medicine [address] [place] [address] Du Maldonado MD Colon cancer screening (Primary Dx); Screening for human immunodeficiency virus; Primary hypertension; Impaired fasting glucose; Elevated LFTs; Mixed hyperlipidemia; Elevated glucose from Last 3 Months Immunizations Name Administration Dates Next Due COVID-19 (Pre-01/05) Pfizer Vaccine, mRNA, PF 12/12/2020,05/01/2020 Influenza Quadrivalent Preservative Free IM 12/15,2022,01/08/2021 Influenza Quadrivalent w/ Preservative IM 2016 Influenza Trivalent Preservative Free IM 024 Influenza Trivalent w/ Preservative IM 6,12/05/2010 Tdap [...] high school, GED, job training, learning the [place] language, technical skills, or developing parenting skills)? [...] is your housing situation today? I have jerichogloria silverman 10/12/2023 How many times have you [...] Mass Index 28.77 04/20/2024 3:34 PM EST Plan of Treatment Upcoming Encounters Date Type Department Care Team (Late st Contact Info) Description 10/25/2024 3:30 PM EDT Appointment [facility] Internal Medicine [address] [place] [address] Du Maldonado MD [address] [place] [address] [email or web address] Health Maintenance Due Date Last Done Comments [...] 07/12/2018 07/12/2013 Adult Td,Tdap Booster 01/07/2021 01/07/2011 COLONOSCOPY 01/22/2024 01/21/2019 COLORECTAL CANCER SCREENING 01/22/2024 HEPATITIS B VACCINES (1 of 3 - Risk 3-dose series) 2024 RSV VACCINE (1 - Risk 60-74 years 1-dose series) 2024 MAMMOGRAM 08/05/2024 08/05/2022, 07/14, 03/22/2020, Additional history exists DEPRESSION SCREENING 10/11/2024 10/12/2023 BLOOD PRESSURE 10/18/2024 04/20/2024 CREATININE LEVEL 04/20/2025 04/20/2024, 09/2022, 05/20/2022, Additional history exists POTASSIUM LEVEL 04/20/2025 04/20/2024, 03/0 09/2022, 2022, Additional history exists SMOKING Hx and SMOKELESS TOBACCO SCREENING 04/20/2025 04/20/2024 SCREENING FOR DIABETES 05/20/2025 05/20/2022, 2017 LIPID PANEL 05/21/2027 05/20/2022, 03/0 09/2022, 05/20/2022, Additional history exists INFLUENZA VACCINE Completed 12/24/2023, , 2022, Additional history exists COVID-19 VACCINE Completed 01/04/2024, , 12/12/2020, Additional history exists HIB VACCINES Aged Out [...] Routine 05/20/2022 OUTSIDE POTASSIUM LEVEL Routine 05/20/2022 COLONOSCOPY FOR RESULT ENTRY ONLY Routine 01/21/2019 OUTSIDE GLUCOSE FASTING Routine 07/09/2017 from Last 3 Months or Most Recently Relevant to Health Maintenance Results * MAMMOGRAPHY FOR RESULT ENTRY ONLY (08/05/2022) Mara Castro [facility] * Comprehensive metabolic panel (05/20/2022 1:20 PM EST) Blood Mara Castro [facility] LAB BLOOD TIM LINDSAY EXTERNAL NON-INTERFACED REF LAB * Outside Potassium Level (05/20/2022) Potassium level - External 4.5 3.4 - 5.0 mmol/L Historical Provider LAB BLOOD ORDERAB LES * (ABNORMAL) Outside HDL (05/20/2022) HDL - External 90(A) 40 - 80 mg/dL Historical Provider LAB BLOOD ORDERAB LES * COLONOSCOPY FOR RESULT ENTRY ONLY (01/21/2019) Colonoscopy tubular adenoma Historical Provider [facility] * Outside Glucose,Fasting (07/09/2017) Glucose, fasting - External 77 65 - 99 mg/dL Historical Provider LAB BLOOD ORDERAB LES from Last 3 Months or Most Recently Relevant to Health Maintenance Care Teams Environmental Sustainability Manager Relationship Specialty Start Date End Date Du Maldonado MD [address] [place] [address] [email or web address] PCP - General Internal Medicine 08/07/22 Additional Source Comments The information contained in this document represents components of the legal health record. It is not the complete legal health record.[facility]
[2024-05-06 08:17] LABS: Estimated Average Glucose 97 mg/dL; Hemoglobin A1C 112.7518 umol/L; Total Hemoglobin (HGBA1C) 3572.9873 umol/L
[2024-05-06 08:37] LABS: Anion Gap 13 (12-20); Blood Urea Nitrogen 12 mg/dL (9-16); Calcium 9.7 mg/dL (8.4-10.2); Carbon Dioxide 27 mmol/L (22-29); Chloride 106 mmol/L (96-108); Cholesterol 214 mg/dL (<200); Estimated Glomerular Filt Rate > 60; Glucose Random 110 mg/dL (60-115); HDL Cholesterol 83 mg/dL (>40); LDL Cholesterol Calculated 115 mg/dL (<100); Potassium 4.5 mmol/L (3.3-5.1); Sodium 141 mmol/L (135-145); Triglycerides 81 mg/dL (<150)
[2024-05-06 08:55] LABS: Vitamin D 25-OH Total 17.8 ng/mL (>30)
== END 2024-05-06 07:48 | disposition home or self-care (01) ==
LOC: HO.LAB 07:47
PROVIDERS: Visit Provider Internal Medicine
DX: R73.01 Impaired fasting glucose (principal); E78.2 Mixed hyperlipidemia; I10 Essential (primary) hypertension
CPT/HCPCS: 36415; 80048; 80061; 82306; 83036

== ENCOUNTER 2024-05-23 11:53 | Outpatient (REF) | payer OTHER, SELFPAY ==
--- OUTSIDE RECORDS SUMMARY | 2024-05-23 13:38 | XMS_ITS | Clinical Summary ---
Author Organization [facility] Address [address] [place] [address] Phone Care Team Providers Care Finished Cloth Examiner Name Role Phone Du Maldonado MD Primary Care Provider [phone] Allergies Active Allergy Reactions Criticality Noted Date [...] every morning. 90 tablet 2 01/28/2024 Active valsartan (DIOVAN) 160 MG tabletIndications :Hypertension TAKE 1 TABLET (160 MG TOTAL) BY MOUTH DAILY. 90 tablet 04/25/2024 Active cholecalciferol (VITAMIN D3) 2,000 unit capsuleIndication s:vitamin D deficiency Take 2,000 Units by mouth daily. Indications: low vitamin D levels Active valsartan (DIOVAN) 160 MG tabletIndications :Hypertension Take 1 tablet (160 mg total) by mouth daily. 90 tablet 1 10/16/2023 04/25/2024 Discontinued Active Problems Problem Noted Date Diagnosed Date [...] this time. This can be done over [facility]. Assessment & Plan (05/19/2022 10:23 PM EST): [...] prior to 2017 and completed PPHP at [place] in January 2020. Assessment & Plan (05/19/2022 10:24 PM EST): Will reduce buspar to 5 mg daily x 2 weeks, then if feeling well will d/c entirely Assessment & Plan (03/06/2020 3:25 PM EST): Continue all medications as prescribed Encounters Date Type Department Care Team Description 05/17/2024 Telephone [facility] Internal Medicine [address] [place] [address] Elsy Stanton RN Results 05/09/2024 Orders Only [facility] Internal Medicine [address] [place] [address] ProviderMarvin MD 04/25/2024 Refill [facility] Internal [facility] [address] [place] [address] Du Maldonado MD Medication Refill 04/20/2024 3:45 PM EST Office Visit [facility] Internal [facility] [address] [place] [address] Du Maldonado MD Colon cancer screening (Primary [...] high school, GED, job training, learning the Yoruba language, technical skills, or developing parenting skills)? [...] PM EDT Appointment [facility] [place] Internal Medicine [address] [place] [address] Du Maldonado MD [address] [place] [address] [email or web address] Health Maintenance Due Date Last Done Comments [...] Date/Time Associated Diagnosis Comments OUTSIDE LAB Routine 05/06/2024 4:38 PM EST MAMMOGRAPHY Routine 08/05/2022 COMPREHENSIVE METABOLIC PANEL Routine 05/20/2022 1:20 PM EST Essential hypertension OUTSIDE HDL Routine 05/20/2022 OUTSIDE POTASSIUM LEVEL Routine 05/20/2022 COLONOSCOPY FOR RESULT ENTRY ONLY Routine 01/21/2019 OUTSIDE GLUCOSE FASTING Routine 07/09/2017 from Last 3 Months or Most Recently Relevant to Health Maintenance Results * Outside Lab (05/06/2024 4:38 PM EST) Historical Provider LAB BLOOD ORDERAB LES * MAMMOGRAPHY FOR RESULT ENTRY ONLY (08/05/2022) Mara Castro [facility] * Comprehensive metabolic panel (05/20/2022 1:20 PM EST) Blood Mara Castro [facility] LAB BLOOD TIM LINDSAY [facility] Organization Address City/State/ZIP Co de Phone Number EXTERNAL NON-INTERFACED REF LAB * Outside Potassium Level (05/20/2022) Potassium level - External 4.5 3.4 - 5.0 mmol/L Historical Provider LAB BLOOD ORDERAB LES * (ABNORMAL) Outside HDL (05/20/2022) HDL - External 90(A) 40 - 80 mg/dL Historical Provider LAB BLOOD ORDERAB LES * COLONOSCOPY FOR RESULT ENTRY ONLY (01/21/2019) Colonoscopy tubular adenoma Historical Provider MD RAO RICO E * Outside Glucose,Fasting (07/09/2017) [facility] Signature Glucose, fasting - External 77 65 - 99 mg/dL Historical Provider LAB BLOOD ORDERAB LES from Last 3 Months or Most Recently Relevant to Health Maintenance Care Teams Finished Cloth Examiner Relationship Specialty Start Date End Date Du Maldonado MD [address] [place] [address] [email or web address] PCP - General Internal Medicine 08/07/22 Additional Source Comments The information contained in this document represents components of the legal health record. It is not the complete legal health record.[facility]
--- OUTSIDE RECORDS SUMMARY | 2024-05-23 13:38 | XMS_ITS | Encounter Summary ---
Author Organization [facility] Address [address] [place] [address] Phone Care Team Providers Care Teacher [employer] Name Role Phone Du Maldonado MD Primary Care Provider [phone] Reason for Visit * Reason Comments Medication Refill Encounter Details Date Type Department Care Team (Late st Contact Info) Description 04/25/2024 Refill [facility] Internal Medicine [address] [place] [address] Du Maldonado MD [address] [place] [address] [email or web address] Medication Refill Social History Tobacco Use Types [...] high school, GED, job training, learning the Montserratian language, technical skills, or developing parenting skills)? [...] 04/20/2024 Du Maldonado MD - Internal Medicine [facility] > Requested f/u: Return in about 6 months (around 10/18/2024) for Annual physical. Upcoming visit: 10/25/2024 Du Maldonado MD - Internal Medicine [facility] ACTIONS TAKEN BY Joyce Pemberton [...] Info) Description 10/25/2024 3:30 PM EDT Appointment [facility] [place] Internal Medicine [address] [place] [address] Du Maldonaod MD [address] [place] [address] [email or web address] documented as of this encounter Visit Diagnoses Diagnosis Hypertension Unspecified essential hypertension documented in this encounter Additional Health Concerns Assessment Noted Time PHQ-2 Depression Total Score: 0 10/12/19 24 12:19 PM EDT documented as of this encounter Care Teams Teacher Nursery [employer] Relationship Specialty Start Date End Date Du Maldonado MD [address] [place] [address] [email or web address] PCP - General Internal Medicine 08/07/22 documented as of this encounter Additional Source Comments The information contained in this document represents components of the legal health record. It is not the complete legal health record.[facility]
--- OUTSIDE RECORDS SUMMARY | 2024-05-23 13:38 | XMS_ITS | Encounter Summary ---
Author Organization [facility] Address [address] [place] [address] Phone Care Team Providers Care Senior Catering Sales Manager Name Role Phone Du Maldonado MD Primary Care Provider [phone] Encounter Details Date Type Department Care Team (Late st Contact Info) Description 05/09/2024 Orders Only [facility] Internal Medicine [address] [place] [address] Provider, MD Marvin [address] [place] [address] Social History Tobacco Use Types Packs/Day Years [...] high school, GED, job training, learning the Mauritanian language, technical skills, or developing parenting skills)? [...] PM EDT Appointment [facility] [place] Internal Medicine [address] [place] [address] Du Maldonado MD [address] [place] [address] [email or web address] documented as of this encounter Procedures Procedure Name Priority Date/Time Associated Diagnosis Comments OUTSIDE LAB Routine 05/06/2024 4:38 PM EST documented in this encounter Results * Outside Lab (05/06/2024 4:38 PM EST) Historical Provider LAB BLOOD ORDERAB LES documented in this encounter Visit Diagnoses Not on filedocumented in this encounter Additional Health Concerns Assessment Noted Time PHQ-2 Depression Total Score: 0 10/12/19 24 12:19 PM EDT documented as of this encounter Care Teams Senior Catering Sales Manager Relationship Specialty Start Date End Date Du Maldonado MD [address] [place] [address] [email or web address] PCP - General Internal Medicine 08/07/22 documented as of this encounter Additional Source Comments The information contained in this document represents components of the legal health record. It is not the complete legal health record.[facility]
--- OUTSIDE RECORDS SUMMARY | 2024-05-23 13:38 | XMS_ITS | Encounter Summary ---
Author Organization [facility] Address [address] [place] [address] Phone Care Team Providers Care Film Composer Name Role Phone Mara Castro ADRIANA Primary Care Provider Du Maldonado MD Primary Care Provider [phone] Encounter Details Date Type Department Care Team (Late st Contact Info) Description 10/07/2019 Orders Only [place] [address] [place] [address] Provider, MD Marvin [address] [place] [address] Social History Tobacco Use Types Packs/Day Years [...] Info) Description 10/25/2024 3:30 PM EDT Appointment [facility] Internal Medicine [address] [place] [address] Du Maldonado MD [address] [place] [address] documented as of this encounter Procedures Procedure [...] documented as of this encounter Care Teams Film Composer Relationship Specialty Start Date End Date Mara Castro CNP [address] [place] [address] [email or web address] PCP - General Internal Medicine 10/29/17 08/06/22 Du Maldonado MD [address] [place] [address] [email or web address] PCP - General Internal Medicine 08/07/22 documented as of this encounter Additional Source Comments The information contained in this document represents components of the legal health record. It is not the complete legal health record.[facility]
--- OUTSIDE RECORDS SUMMARY | 2024-05-23 13:38 | XMS_ITS | Encounter Summary ---
Author Organization [facility] Address [address] [place] [address] Phone Care Team Providers Care Mid Level Java Developer Name Role Phone Iain Huston MD Unavailable Yanique Yao MD Unavailable [phone] Mikala Dallas MD Unavailable [phone] Jason Oglesby MD Unavailable [phone] Dionne Beard MEDICAL NUMERICAL CONTROL OPERATOR Unavailable [phone] Dionne Beard MEDICAL NUMERICAL CONTROL OPERATOR Primary Care Provider [phone] Mara Castro CERAMIC CAPACITOR PROCESSOR Primary Care Provider Du Maldonado MD Primary Care Provider [phone] Encounter Details Date Type Department Care Team (Late st Contact Info) Description 07/22/2017 Ancillary Orders [facility], X-Ray - Shashi [address] [place] [address] Sarahi Glover PA [address] [place] [address] [email or web address] Social History Tobacco Use Types Packs/Day [...] Description 10/25/2024 3:30 PM EDT Appointment [facility] Internal Medicine [address] [place] [address] Du Maldonado MD [address] [place], [place] [id number] [email or web address] documented as of this encounter Visit Diagnoses Diagnosis Cough documented in this encounter Care Teams Mid Level Java Developer Relationship Specialty Start Date End Date Dionne Beard NP [address] [place] [phone] PCP - General Family Medicine 03/25/17 10/28/17 Mara Castro CNP [address] [place] [address] PCP - General Internal Medicine 10/29/17 08/06/22 Du Maldonado MD [address] [place] [address] PCP - General Internal Medicine 08/07/22 Iain Huston MD [address] [place] [address], [address] [place] [address] Historical LMR Provider 12/29/16 06/14/19 Yanique Yao MD [address] [place] [address], [address] [place] [address] Historical LMR Provider 12/29/16 Mikala Dallas MD 38 [facility] 204, [address] [place] [address] Historical LMR Provider 12/29/16 06/14/19 Jason Oglesby MD 22 [facility], [address] [place] [address] Historical LMR Provider 12/29/16 06/14/19 Dionne Beard NP [address] [place] [phone] Historical LMR Provider 12/29/16 documented as of this encounter Additional Source Comments The information contained in this document represents components of the legal health record. It is not the complete legal health record.[facility]
--- OUTSIDE RECORDS SUMMARY | 2024-05-23 13:38 | XMS_ITS | Encounter Summary ---
Author Organization [facility] Address [address] [place] [address] Phone Care Team Providers Care Leak Patcher Name Role Phone Du Maldonado MD Primary Care Provider [phone] Reason for Visit * Reason Comments Medication Refill Encounter Details Date Type Department Care Team (Late st Contact Info) Description 08/08/2022 Refill [facility] Internal Medicine [address] [place] [address] Mara Castro, INJURY PREVENTION COORDINATOR [address] [place] [address] [email or web address] Medication Refill Social History Tobacco Use Types [...] high school, GED, job training, learning the Belgian language, technical skills, or developing parenting skills)? [...] Last visit: 05/19/2022 (ADRIANA [facility]) > Requested f/u: Return in about 6 months (around 11/19/2022) for Annual physical. ??? Upcoming visit: 11/26/2022 (ADRIANA [facility]varez [facility]) ACTIONS TAKEN BY Gabriel Guaman - Refill [...] Info) Description 10/25/2024 3:30 PM EDT Appointment [facility] Internal Medicine [address] [place] [address] Du Maldonado MD [address] [place] [address] [email or web address] documented as of this encounter Visit Diagnoses Diagnosis Hypertension Unspecified essential hypertension documented in this encounter Additional Health Concerns Assessment Noted Time PHQ-2 Depression Total Score: 0 02/19/20 22 3:06 PM EST documented as of this encounter Care Teams Leak Patcher Relationship Specialty Start Date End Date Du Maldonado MD [address] [place] [address] [email or web address] PCP - General Internal Medicine 08/07/22 documented as of this encounter Additional Source Comments The information contained in this document represents components of the legal health record. It is not the complete legal health record.[facility]
--- OUTSIDE RECORDS SUMMARY | 2024-05-23 13:38 | XMS_ITS | Encounter Summary ---
Author Organization [facility] Address [address] [place] [address] Phone Care Team Providers Care Design Coordinator Name Role Phone Du Maldonado MD Primary Care Provider [phone] Reason for Visit * Reason Onset Date Comments Results 05/17/2024 Encounter Details Date Type Department Care Team (Late st Contact Info) Description 05/17/2024 Telephone [facility] Internal Medicine [address] [place], [place] [phone] Elsy Stanton RN [address] [place], [place] [phone] [email or web address] Results Social History Tobacco Use Types Packs/Day Years [...] high school, GED, job training, learning the Portuguese language, technical skills, or developing parenting skills)? [...] as of this encounter Progress Notes * Maggy Hugo RN - 05/19/2024 8:31 AM EST Spoke to Kyra and advised. Added Vit D to med list. * Elsy Stanton RN - 05/18/2024 9:20 AM EST LVM for pt to call back. * Elsy Stanton RN - 05/17/2024 10:22 AM EST LVM for pt to call back. * Elsy Stanton RN - 05/17/2024 10:21 AM EST Images from the original note were not included. Du Maldonado MD [facility] had labs done for me outside [facility] with [facility], vitamin D level was low some recommending sheadd on 2000 units of vitamin D to her daily regimen. Cholesterol however was good and electrolytes kidney function normal blood sugar was good. So aside from the vitamin D everything else was good, diabetic marker negative. documented in this encounter Plan of Treatment Upcoming Encounters Date Type Department Care Team (Late st Contact Info) Description 10/25/2024 3:30 PM EDT Appointment [facility] Internal Medicine [address] [place] [address] Du Maldonado MD [address] [place] [address] [email or web address] documented as of this encounter Visit Diagnoses Not on filedocumented in this encounter Additional Health Concerns Assessment Noted Time PHQ-2 Depression Total Score: 0 10/12/19 24 12:19 PM EDT documented as of this encounter Care Teams Design Coordinator Relationship Specialty Start Date End Date Du Maldonado MD [address] [place] [address] [email or web address] PCP - General Internal Medicine 08/07/22 documented as of this encounter Additional Source Comments The information contained in this document represents components of the legal health record. It is not the complete legal health record.[facility]
--- OUTSIDE RECORDS SUMMARY | 2024-05-23 13:38 | XMS_ITS | Encounter Summary ---
Author Organization [facility] Address [address] [place] [address] Phone Care Team Providers Care Talent Development Coordinator Name Role Phone Mara Castro CNP Primary Care Provider Du Maldonado MD Primary Care Provider [phone] Reason for Referral * Consultation (Emergency) - Closed Specialty Diagnoses / Procedures Referred By Esteban sweeney Referred To Contact Diagnoses Right leg swelling Procedures US Lower Extremity Veins Duplex (Right) Mara Castro CNP [address] [place] [address] Email: Referral ID Status Reason Start Date Expiration Date Visits Re quested Visits Authorized [id number] Closed 06/26/2022 06/27/2023 1 1 Reason for Visit * Reason Onset Date Comments Leg Swelling 06/26/2022 Encounter Details Date Type Department Care Team (Late st Contact Info) Description 06/26/2022 Nurse Triage [facility] Internal Medicine [address] [place] [address] Angeline Bailey RN Leg Swelling Social History Tobacco Use Types [...] housing situation today? I have jericho sing 2022 How many times have you move [...] have ordered this to be performed at [facility]. However, the results willnot be available as [...] educated on risk with delay in care, [place], stroke, verbalized understanding and refused to go to ED. Pt informed message will be relayed to medical provider for follow up. Nurse Triage Encounter Note Reason for Triage Kyracharu Lenz contacted office for Leg Swelling Call Disposition Call Pcp Patient/caregiver understands and will follow disposition: Yes Patient/caregiver understands and will follow care advice: No, Wishes To Speak To Pcp Disposition Comments: Protocols used: Leg Swelling And Uxvnt-Ymooj-Qh Care Advice Given Care Advice Patient/Caregiver understands [...] are overweight, talk with your doctor (or RADIO ENGINEER/PA) about a weight loss program. CALL BACK [...] decrease the itching. * This is an ujhb-qlb-njtntpv (OTC) drug. You can buy it at [...] reduce itching and swelling. * They are hoqd-ppp-tbwkzip (OTC) antihistamine medicines. You can buy them [...] period? N/A Protocols used: LEG SWELLING AND [id number]-[id number]-DC documented in this encounter Plan of Treatment Upcoming Encounters Date Type Department Care Team (Late st Contact Info) Description 10/25/2024 3:30 PM EDT Appointment [facility] Internal Medicine [address] [place], [place] [phone] Du Maldonado MD [address] [place], [place] [phone] [email or web address] documented as of this encounter Procedures Procedure [...] documented as of this encounter Care Teams Talent Development Coordinator Relationship Specialty Start Date End Date Mara Castro CNP [address] [place] [address] PCP - General Internal Medicine 10/29/17 08/06/22 Du Maldonado MD [address] [place] [address] PCP - General Internal Medicine 08/07/22 documented as of this encounter Additional Source Comments The information contained in this document represents components of the legal health record. It is not the complete legal health record.[facility]
== END 2024-05-23 11:54 | disposition home or self-care (01) ==
LOC: HO.BBR 11:53
PROVIDERS: PCP Internal Medicine; Visit Provider Internal Medicine
DX: D75.1 Secondary polycythemia (principal)
CPT/HCPCS: 85018; 99195

== ENCOUNTER 2024-07-05 11:52 | Outpatient (REF) | payer OTHER, SELFPAY ==
--- OUTSIDE RECORDS SUMMARY | 2024-07-05 14:20 | XMS_ITS | Clinical Summary ---
Author Organization [facility] Address [address] [place] [address] Phone Care Team Providers Care Driver/Merchandiser Name Role Phone Du Maldonado MD Primary Care Provider [phone] Allergies Active Allergy Reactions Criticality Noted Date Comments Lisinopril Cough 07/22/2017 Sulfa (Sulfonamide Antibiotics) Hives,Itching 1 04/12/2016 Medications Medication Sig Dispensed Refills Start Date End Date Status aspirin 81 MG EC tablet 1 tablet Active PARoxetine (PAXIL) 30 MG tabletIndications:Anx iety and depression Take 1 tablet (30 mg total) by mouth every morning. 90 tablet 3 11/26/2023 Active amLODIPine (NORVASC) 10 MG tablet Take 1 tablet (10 mg total) by mouth every morning. 90 tablet 2 01/28/2024 Active valsartan (DIOVAN) 160 MG tabletIndications:Hyp ertension TAKE 1 TABLET (160 MG TOTAL) BY MOUTH DAILY. 90 tablet 04/25/2024 Active cholecalciferol (VITAMIN D3) 2,000 unit capsuleIndications:vi tamin D deficiency Take 2,000 Units by mouth daily. Indications: low vitamin D levels Active Active Problems Problem Noted Date Diagnosed [...] this time. This can be done over [facility]. Assessment & Plan (05/19/2022 10:23 PM EST): [...] prior to 2017 and completed PPHP at [place] in January 2020. Assessment & Plan (05/19/2022 10:24 PM EST): Will reduce buspar to 5 mg daily x 2 weeks, then if feeling well will d/c entirely Assessment & Plan (03/06/2020 3:25 PM EST): Continue all medications as prescribed Encounters Date Type Department Care Team Description 05/17/2024 Telephone [facility] Internal Medicine 40 [facility] [place] [address] Elsy Stanton RN Results 05/09/2024 Orders Only [facility] Internal Medicine [address] [facility] [place] [address] Marvin Avila MD 04/25/2024 Refill [facility] Internal Medicine 40 [facility] [place] [address] Du Maldonado MD Medication Refill 04/20/2024 3:45 PM EST Office Visit [facility] Internal [facility] 40 [place] [address] Du Maldonado MD Colon cancer screening (Primary [...] high school, GED, job training, learning the Turkish language, technical skills, or developing parenting skills)? [...] Info) Description 10/25/2024 3:30 PM EDT Appointment [facility] [place] Internal Medicine [address] [place] [address] Du Maldonado MD [address] [place] [address] [email or web address] Health Maintenance Due Date Last Done Comments [...] OUTSIDE LAB Routine 05/06/2024 4:38 PM EST HM MAMMOGRAPHY Routine 08/05/2022 COMPREHENSIVE METABOLIC PANEL [...] FOR RESULT ENTRY ONLY (08/05/2022) Mara Castro [facility] * Comprehensive metabolic panel (05/20/2022 1:20 PM EST) Blood Mara Castro [facility] LAB BLOOD ORDPreethi LINDSAY [facility] Organization Address City/State/ZIP Co de [...] ONLY (01/21/2019) Colonoscopy tubular adenoma Historical [facility] * Outside Glucose,Fasting (07/09/2017) Glucose, fasting - External 77 65 - 99 mg/dL Historical Provider LAB BLOOD ORDERAB LES from Last 3 Months or Most Recently Relevant to Health Maintenance Care Teams Driver/Merchandiser Relationship Specialty Start Date End Date Du Maldonado MD [address] [place] [address] PCP - General Internal Medicine 08/07/22 Additional Source Comments The information contained in this document represents components of the legal health record. It is not the complete legal health record.[facility]
--- OUTSIDE RECORDS SUMMARY | 2024-07-05 14:20 | XMS_ITS | Encounter Summary ---
Author Organization [facility] Address [address] [place] [address] Phone Care Team Providers Care Rolled Ham Lacer Name Role Phone Iain Huston MD Unavailable Yanique Yao MD Unavailable Mikala [place] MD Unavailable [phone] Jason Oglesby MD Unavailable Dionne Beard INSPECTOR AND UNLOADER Unavailable Dionne Beard INSPECTOR AND UNLOADER Primary Care Provider [phone] Mara Castro STAFF FIELD ENGINEER Primary Care Provider Du Maldnoado MD Primary Care Provider Encounter Details Date Type Department Care Team (Late st Contact Info) Description 07/22/2017 Ancillary Orders [facility], X-Ray - Shashi [address] [place] [address] Sarahi Glover PA [address] [place] [address] [email or web address] Cough Social History Tobacco Use Types Packs/Day [...] Description 10/25/2024 3:30 PM EDT Appointment [facility] Internal Medicine [address] [place] [address] Du Maldonado MD [address] [place], [place] [id number] [email or web address] documented as of this encounter Visit Diagnoses Diagnosis Cough documented in this encounter Care Teams Rolled Ham Lacer Relationship Specialty Start Date End Date Dionne Beard NP [address] [place] [address] [phone] PCP - General Family Medicine 03/25/17 10/28/17 Mara Castro CNP [address] [place] [address] PCP - General Internal Medicine 10/29/17 08/06/22 Du Maldonado MD [address] [place] [address] PCP - General Internal Medicine 08/07/22 Iain Huston MD [address] [place] [address] 204, [address] [place] [address] Historical LMR Provider 12/29/16 06/14/19 Yanique Yao MD [address] [place] [address], [address] [place] [address] Historical LMR Provider 12/29/16 Mikala [place] MD 38 [facility] 204, [address] [place] [address] Historical LMR Provider 12/29/16 06/14/19 Jason Oglesby MD 22 [facility], [address] [place] [address] Historical LMR Provider 12/29/16 06/14/19 Dionne Beard NP [address] [place] [phone] Historical LMR Provider 12/29/16 documented as of this encounter Additional Source Comments The information contained in this document represents components of the legal health record. It is not the complete legal health record.[facility]
--- OUTSIDE RECORDS SUMMARY | 2024-07-05 14:20 | XMS_ITS | Encounter Summary ---
Author Organization [facility] Address [address] [place] [address] Phone Care Team Providers Care Watershed Manager Name Role Phone Du Maldonado MD Primary Care Provider [phone] Reason for Visit * Reason Comments Medication Refill Encounter Details Date Type Department Care Team (Late st Contact Info) Description 08/08/2022 Refill [facility] Internal Medicine [address] [place] [address] Mara Castro, DRIFTMAN [address] [place] [address] [email or web address] Medication Refill Social History Tobacco Use Types [...] high school, GED, job training, learning the Burkinan language, technical skills, or developing parenting skills)? [...] Info ??? Last visit: 05/19/2022 ([facility]) > Requested f/u: Return in about 6 months (around 11/19/2022) for Annual physical. ??? Upcoming visit: 11/26/2022 ([facility]) ACTIONS TAKEN BY Gabriel Guaman [...] Info) Description 10/25/2024 3:30 PM EDT Appointment [facility] Internal Medicine [address] [place] [address] Du Maldonado MD [address] [place] [address] [email or web address] documented as of this encounter Visit Diagnoses Diagnosis Hypertension Unspecified essential hypertension documented in this encounter Additional Health Concerns Assessment Noted Time PHQ-2 Depression Total Score: 0 02/19/20 22 3:06 PM EST documented as of this encounter Care Teams Watershed Manager Relationship Specialty Start Date End Date Du Maldonado MD [address] [place] [address] [email or web address] PCP - General Internal Medicine 08/07/22 documented as of this encounter Additional Source Comments The information contained in this document represents components of the legal health record. It is not the complete legal health record.[facility]
--- OUTSIDE RECORDS SUMMARY | 2024-07-05 14:20 | XMS_ITS | Encounter Summary ---
Author Organization [facility] Address [address] [place] [address] Phone Care Team Providers Care Button Buttonhole Marker Name Role Phone Mara Castro ADRIANA Primary Care Provider Du Maldonado MD Primary Care Provider [phone] Encounter Details Date Type Department Care Team (Late st Contact Info) Description 10/07/2019 Orders Only [facility] [address] [place] [address] Provider, MD Marvin [address] [place] [address] Social History Tobacco Use Types Packs/Day Years [...] Info) Description 10/25/2024 3:30 PM EDT Appointment [facility] Internal Medicine 40 [place] [address] Du Maldonado MD 40 [place] [address] documented as of this encounter Procedures Procedure [...] documented as of this encounter Care Teams Button Buttonhole Marker Relationship Specialty Start Date End Date Mara Castro CNP [address] [place] [address] [email or web address] PCP - General Internal Medicine 10/29/17 08/06/22 Du Maldonado MD [address] [place] [address] [email or web address] PCP - General Internal Medicine 08/07/22 documented as of this encounter Additional Source Comments The information contained in this document represents components of the legal health record. It is not the complete legal health record.[facility]
--- OUTSIDE RECORDS SUMMARY | 2024-07-05 14:20 | XMS_ITS | Encounter Summary ---
Author Organization [facility] Address [address] [place] [address] Phone Care Team Providers Care Bag Machine Tender Name Role Phone Mara Castro CNP Primary Care Provider Du Maldonado MD Primary Care Provider [phone] Reason for Referral * Consultation (Emergency) - Closed Specialty Diagnoses / Procedures Referred By Esteban sweeney Referred To Contact Diagnoses Right leg swelling Procedures US Lower Extremity Veins Duplex (Right) Mara Castro CNP [address] [place] [address] Email: [email or web address] Referral ID Status Reason Start Date Expiration Date Visits Re quested Visits Authorized [id number] Closed 06/26/2022 06/27/2023 1 1 Reason for Visit * Reason Onset Date Comments Leg Swelling 06/26/2022 Encounter Details Date Type Department Care Team (Late st Contact Info) Description 06/26/2022 Nurse Triage [facility] Internal Medicine [address] [place] [address] Angeline Bailey RN Leg Swelling Social History [...] high school, GED, job training, learning the Eritrean language, technical skills, or developing parenting skills)? [...] have ordered this to be performed at [facility]. However, the results willnot be available as [...] educated on risk with delay in care, ND, stroke, verbalized understanding and refused to go [...] Disposition Comments: Protocols used: Leg Swelling And Csquj-Eagak-On Care Advice Given Care Advice Patient/Caregiver understands [...] are overweight, talk with your doctor (or ASSURANCE MANAGER/PA) about a weight loss program. CALL [...] decrease the itching. * This is an thpz-uum-jqdariz (OTC) drug. You can buy it at [...] reduce itching and swelling. * They are knox-yqm-idlybac (OTC) antihistamine medicines. You can buy them [...] period? N/A Protocols used: LEG SWELLING AND AOMCV-QWLPL-XN documented in this encounter Plan of Treatment Upcoming Encounters Date Type Department Care Team (Late st Contact Info) Description 10/25/2024 3:30 PM EDT Appointment [facility] Internal Medicine [address] [place], [place] [id number] Du Maldonado MD [address] [place], [place] [phone] [email or web address] documented as of this encounter Procedures Procedure [...] documented as of this encounter Care Teams Bag Machine Tender Relationship Specialty Start Date End Date Mara Castro CNP [address] [place] [address] PCP - General Internal Medicine 10/29/17 08/06/22 Du Maldonado MD [address] [place] [address] PCP - General Internal Medicine 08/07/22 documented as of this encounter Additional Source Comments The information contained in this document represents components of the legal health record. It is not the complete legal health record.[facility]
== END 2024-07-05 11:53 | disposition home or self-care (01) ==
LOC: HO.BBR 11:52
PROVIDERS: PCP Internal Medicine; Visit Provider Internal Medicine
DX: Z13.89 Encounter for screening for other disorder (principal)

== ENCOUNTER 2024-08-17 11:51 | Outpatient (REF) | payer OTHER, SELFPAY | END 2024-08-17 11:52 | disposition home or self-care (01) | LOC: HO.BBR 11:51 | PROVIDERS: PCP Internal Medicine; Visit Provider Internal Medicine | DX: D75.1 Secondary polycythemia (principal) | CPT/HCPCS: 85014; 85018; 99195 ==

== ENCOUNTER 2024-10-05 11:55 | Outpatient (REF) | payer OTHER, SELFPAY ==
--- OUTSIDE RECORDS SUMMARY | 2024-10-05 12:40 | XMS_ITS | Patient Health Record ---
Author Organization [facility] Address [address] [place] [phone] Care Team Providers Care Afternoon Babysitter Name Role Phone Cass Liao Primary Care Provider Jeffery Raza Jr Unavailable [phone] Allergies Allergen (clinical drug ingredient) Drug/Non Drug Allergy documented on EMR Reaction Allergy Type Onset Date Status sulfacetamide Sulfacetamide Sodium Unknown Drug Allergy Active Reason For Referral No Information Medications Medication SIG (Take, Route, Frequency, Duration) Notes Start Date End Date Status Losartan Potassium 50 MG TAKE 1 TABLET B Y MOUTH EVERY DAY Oral Active Aspirin Adult Low Strength 81 MG 1 tablet Orally Once a day for 30 day(s) Active Atorvastatin Calcium 20 MG TAKE 1 TABLET BY MOUTH EVERY DAY Oral for 90 Active PARoxetine HCl 20 MG TAKE 1 TABLET BY MO UT EVERY DAY IN THE MORNING Oral for 30 Active MiraLax (colon prep) 8.3 ounce ((238) grams mixed with Gatorade or Crystal Light orally begin at 5:00 p.m. the day before the procedure for 1 day 09/15/2018 Active Immunizations Vaccine Route Administration Date Status Comme nts Influenza Unknown 11/14/2017 Administered Social History Tobacco Use: Social History Observation Description Date Details (start date - stop date) Current Smoker NA - NA Tobacco Use/Smoking Question Answer Notes Patient is a current smoker How often do you smoke cigarettes? every day How many cigarettes a day do you smoke? 6-10 How soon after you wake up do you smoke your fir st cigarette? 6-30 minutes Are you interested in quitting? Not ready to jhoan t Alcohol Screen Question Answer Notes Did you have a drink contain ing alcohol in the past year? Yes How often did you have a dri nk containing alcohol in the past year? Monthly or less (1 point) How many drinks did you have on a typical day when you were drinking in the past year? 1 or 2 drinks (0 point) How often did you have 6 or more drinks on one occasion in the past year? Never (0 point) Points 1 Interpretation Negative Problems Problem Type SNOMED Code ICD Code Onset Dates Problem Status W/U Status Risk Notes Problem [id number] Colon cancer screening (Z12.11) Active confirmed Problem [id number] Encounter for other preprocedural examination (Z01.818) Active confirmed Plan Of Treatment Future Test Test Name Order Date COLONOSCOPY 09/15/2018 Insurance Providers Payer Name Payer Address Payer Phone Subscriber Number Group Number Insured Name Patient Relationship to Insured Coverage Start Date Coverage End Date R [address] [address] [place] [address] [phone] [id number] DERIC MULTANI Self - patient is the insured Medical (General) History Medical History History ICD Code hypertension elevated cholesterol polycythemia vera, phlebotomies every 4- 6 weeks Surgical History Surgery Date(Month/Year) section x2
--- OUTSIDE RECORDS SUMMARY | 2024-10-05 12:40 | XMS_ITS | Clinical Summary ---
Author Organization [facility] Address [address] [place] [address] Phone Care Team Providers Care B2B Sales Representative Name Role Phone Du Maldonado MD Primary Care Provider [phone] Allergies Active Allergy Reactions Criticality Noted Date Comments Lisinopril Cough 07/22/2017 Sulfa (Sulfonamide Antibiotics) Hives,Itching 1 04/12/2016 Medications aspirin 81 MG EC tablet 1 tablet Active PARoxetine (PAXIL) 30 MG tabletIndicatio ns:Anxiety and depression Take 1 tablet (30 mg total) by mouth every morning. 90 tablet 3 11/26/2023 Active cholecalciferol (VITAMIN D3) 2,000 unit capsuleIndicati ons:vitamin D deficiency Take 2,000 Units by mouth daily. Indications: low vitamin D levels Active valsartan (DIOVAN) 160 MG tabletIndicatio ns:Hypertension TAKE 1 TABLET (160 MG TOTAL) BY MOUTH DAILY. 90 tablet 07/21/2024 Active amLODIPine (NORVASC) 10 MG tabletIndicatio ns:Hypertension Take 1 tablet (10 mg total) by mouth every morning. 90 tablet 3 08/22/2024 Active Active Problems Problem Noted Date Diagnosed [...] this time. This can be done over [facility]. Assessment & Plan (05/19/2022 10:23 PM [...] prior to 2017 and completed [facility] at [facility] in January 2020. Assessment & Plan (05/19/2022 10:24 PM EST): Will reduce buspar to 5 mg daily x 2 weeks, then if feeling well will d/c entirely Assessment & Plan (03/06/2020 3:25 PM EST): Continue all medications as prescribed Encounters Date Type Department Care Team Description 08/22/2024 Refill [facility] Internal Medicine [address] [place] [address] Du Maldonado MD Medication Refill 07/21/2024 Refill [facility] Internal Medicine [address] [place] [address] Du Maldonado MD Medication Refill from Last 3 Months Immunizations Immunization Administration Dates Next Due COVID-19 (Pre-01/05) Pfizer [...] high school, GED, job training, learning the Hong Konger language, technical skills, or developing parenting skills)? [...] or tries to control you? No 10/12/2023 Comments Unknown Sex and Gender Information Value Date Recorded Sex Assigned at Female 08/24/2019 3:14 PM EDT Legal Sex Female 9:42 PM EDT Gender Identity Female 08/24/2019 3:14 PM EDT Sexual Orientation Not on file Last Filed Vital Signs Vital Sign Reading Time Taken Comments Blood Pressure 122/60 04/20/2024 3:34 PM EST Pulse 90 04/20/2024 3:34 PM EST Temperature 36.4 C (97.6 F) 04/20/2024 3:34 PM EST Respiratory Rate 18 04/20/2024 3:34 PM EST [...] Contact Info) Description 10/25/2024 3:30 PM EDT Office Visit [facility] Internal Medicine [address] [place] [address] Du Maldonado MD [address] [place] [address] [email or web address] Health Maintenance Due Date Last Done Comments HEPATITIS C SCREENING 02/17/1982 HIV ONE-TIME SCREENING [...] COLONOSCOPY 01/22/2024 01/21/2019 COLORECTAL CANCER SCREENING 01/22/2024 RSV VACCINE (1 - Risk 60-74 years 1-dose series) 2024 MAMMOGRAM 08/05/2024 08/05/2022, 07/14, 03/22/2020, Additional history exists DEPRESSION SCREENING 10/11/2024 10/12/2023 BLOOD PRESSURE 10/18/2024 04/20/2024 CREATININE LEVEL 04/20/2025 04/20/2024, 09/2022, 05/20/2022, Additional history exists POTASSIUM LEVEL 04/20/2025 04/20/2024, 03/0 09/2022, 2022, Additional history exists SMOKING Hx and SMOKELESS TOBACCO SCREENING 04/20/2025 04/20/2024 SCREENING FOR DIABETES 05/20/2025 05/20/2022, 2017 LIPID PANEL 05/21/2027 05/20/2022, 030 09/2022, 05/20/2022, Additional history exists COVID-19 VACCINE Completed 01/04/2024, , 12/12/2020, Additional history exists HIB VACCINES Aged Out No longer eligi ble based on patient's age to complete this topic MENINGOCOCCAL VACCINES (ACWY) Aged Out No longer eligible based on patient's age to complete this topic MENINGOCOCCAL VACCINES (B) Aged Out N o longer eligible based on patient's age to [...] Recently Relevant to Health Maintenance Results * HM MAMMOGRAPHY FOR RESULT ENTRY ONLY (08/05/2022) Result [facility] Mara Castro [facility] MAINTENANCE Tate helen Result - Final * Comprehensive metabolic panel (05/20/2022 1:20 PM EST) Blood Mara Castro [facility] LAB BLOOD ORDERABLES F inal Result EXTERNAL NON-INTERFACED REF LAB * Outside Potassium Level (05/20/2022) Potassium level - External 4.5 3.4 - 5.0 mmol/L Result [facility] Provider MD LAB BLOOD ORDERABLES Shivani l Result * (ABNORMAL) Outside HDL (05/20/2022) HDL - External 90(A) 40 - 80 mg/dL Result [facility] Provider MD LAB BLOOD ORDERABLES Shivani l Result * COLONOSCOPY FOR RESULT ENTRY ONLY (01/21/2019) Colonoscopy tubular adenoma Result [facility] Provider HEALTH MAINTENANCE Final Result * Outside Glucose,Fasting (07/09/2017) Glucose, fasting - External 77 65 - 99 mg/dL Result [facility] Provider MD LAB BLOOD ORDERABLES Shivani l Result from Last 3 Months or Most Recently Relevant to Health Maintenance Insurance [employer]MIN[employer] Member Subscriber Plan / Payer (Ef fective 2019-Present) Name:Kyra Lenz Relation to Subscriber:Self Name:Kyra Lenz Payer ID:[id number] (NAIC) Type:PPO Address: [place] [phone] [employer] BENEFITS ADMINISTRATORS [employer] B[employer]EFITS ADMINISTRATORS Care Teams B2B Sales Representative Relationship Specialty Start Date End Date Du Maldonado MD [address] [place] [address] [email or web address] PCP - General Internal Medicine 08/07/22 Additional Source Comments The information contained in this document represents components of the legal health record. It is not the complete legal health record.[facility]
== END 2024-10-05 11:56 | disposition home or self-care (01) ==
LOC: HO.BBR 11:55
PROVIDERS: PCP Internal Medicine; Visit Provider Internal Medicine
DX: D75.1 Secondary polycythemia (principal)
CPT/HCPCS: 85018; 99195

== ENCOUNTER 2024-10-26 07:18 | Outpatient (REF) | payer OTHER, SELFPAY ==
--- OUTSIDE RECORDS SUMMARY | 2024-10-26 07:21 | XMS_ITS | Patient Health Record ---
Author Organization [facility] Address [address] [place] [phone] Care Team Providers Care Contact Assembler Name Role Phone Cass Liao Primary Care Provider Jeffery Raza Jr Unavailable [phone] Allergies Allergen (clinical drug ingredient) Drug/Non [...] Problem Status W/U Status Risk Notes Problem [id number] Colon cancer screening (Z12.11) Active confirmed Problem [id number] Encounter for other preprocedural examination (Z01.818) Active confirmed Plan Of Treatment Future Test Test Name Order Date COLONOSCOPY 09/15/2018 Insurance Providers Payer Name Payer Address Payer Phone Subscriber Number Group Number Insured Name Patient Relationship to Insured Coverage Start Date Coverage End Date R [address] [address] [place] [id number] DERIC MULTANI Self - patient is the insured Medical (General) History Medical History History ICD Code hypertension elevated cholesterol polycythemia vera, phlebotomies every 4- 6 weeks Surgical History Surgery Date(Month/Year) section x2
[2024-10-26 07:33] LABS: MANUAL DIFF FLAG NO
[2024-10-26 08:12] LABS: Hematocrit 44.3 % (37.0-47.0); Hemoglobin 14.8 g/dl (12.0-16.0); Imm Gran Abs Auto 0.04 X10*3/uL (0.00-0.03); Imm Gran Pct Auto 0.4 % (0.0-0.4); Lymphocytes Absolute Auto 1.2 X10*3/uL (1.2-4.9); Mean Corpuscular HGB Conc 33.4 g/dl (31.0-35.0); Mean Corpuscular Hemoglobin 29.7 pg (27.0-33.0); Mean Corpuscular Volume 88.8 fL (80.0-98.0); NRBC Abs Auto 0.000 X10*3/uL (0.0-0.012); NRBC Pct Auto 0.0 /100WBC (0.0-0.2); Platelet Count 316 X10*3/uL (160-400); Red Blood Count 4.99 X10*6/uL (4.20-5.50); White Blood Count 10.4 X10*3/uL (4.8-10.8)
[2024-10-26 09:27] LABS: Alanine Aminotransferase 62 U/L (0-31); Albumin Level 4.8 g/dL (3.5-5.0); Alkaline Phosphatase 111 U/L (39-117); Anion Gap 14 (12-20); Aspartate Amino Transferase 42 U/L (5-31); Blood Urea Nitrogen 11 mg/dL (9-16); Calcium 9.6 mg/dL (8.4-10.2); Carbon Dioxide 28 mmol/L (22-29); Chloride 106 mmol/L (96-108); Cholesterol 228 mg/dL (<200); Estimated Glomerular Filt Rate > 60; HDL Cholesterol 85 mg/dL (>40); Potassium 4.5 mmol/L (3.3-5.1); Sodium 143 mmol/L (135-145); Total Protein 7.3 g/dL (6.5-8.0); Triglycerides 82 mg/dL (<150)
[2024-10-26 09:38] LABS: HIV Num 1 0.05 S/CO (0.00-0.99); ~HepC Num1 0.09 S/CO (0.00-0.79); ~Hepatitis C Antibody Nonreactive (Nonreactive)
[2024-10-26 11:24] LABS: Hemoglobin A1C 127.0902 umol/L; Total Hemoglobin (HGBA1C) 3998.7247 umol/L
== END 2024-10-26 07:19 | disposition home or self-care (01) ==
LOC: HO.LAB 07:18
PROVIDERS: Visit Provider Internal Medicine
DX: Z00.00 Encounter for general adult medical examination without abnormal findings (principal); Z11.4 Encounter for screening for human immunodeficiency virus [HIV]; Z11.59 Encounter for screening for other viral diseases; E78.2 Mixed hyperlipidemia; R73.01 Impaired fasting glucose
CPT/HCPCS: 36415; 80053; 80061; 83036; 85025; 86803; 87389

== ENCOUNTER 2024-11-28 14:30 | Outpatient (REF) | payer OTHER, SELFPAY ==
--- NOTE | ~2024-11-28 | MM_ITS ---
EXAMINATION: MM SCREENING DIGITAL BREAST TOMOSYNTHESIS, BILATERAL CLINICAL INFORMATION: Screening. Asymptomatic. COMPARISON: Comparison made to multiple prior, most recent August 05, 2022, and most remote May 15, 2017. TECHNIQUE: Digital breast tomosynthesis is performed in mediolateral oblique and craniocaudal views along with computer-aided detection (CAD). Synthesized 2D images are generated from the tomosynthesis. FINDINGS: BREAST COMPOSITION: There are scattered areas of fibroglandular density (ACR BI-RADS breast composition Category b). BILATERAL BREASTS: No significant masses, suspicious calcifications or other abnormalities are seen in either breast. MM/MM tomosynthesis screening BI IMPRESSION: BILATERAL BREASTS: Negative, no mammographic evidence of malignancy. Normal interval follow-up is recommended in 12 months. ASSESSMENT: BI-RADS 1 - Negative RECOMMENDATION: Routine annual mammography screening. FOLLOW-UP: 1 year F/U This examination should not preclude the clinical evaluation of a suspicious palpable abnormality. This patient's information was entered into a reminder system with a target due date for their next mammogram. Electronically signed by: Kirby Ignacio MD 11/29/2024 06:26 PM EDT
--- OUTSIDE RECORDS SUMMARY | 2024-11-28 19:58 | XMS_ITS | Encounter Summary ---
Author Organization [facility] Address [address] [facility] [address] [place] [address] Phone Care Team Providers Care Military Technology Manager Name Role Phone Du Maldonado MD Primary Care Provider [phone] Encounter Details Date Type Department Care Team (Late st Contact Info) Description 10/28/2024 Orders Only [facility] Internal Medicine [address] [place] [address] Provider, MD Marvin [address] [place] [address] Social History Tobacco Use Types Packs/Day Years [...] work, study, or receive health care? No 10/25/2024 Education Answer Date Recorded Are you interested in help w ith more adult education (for example, completing high school, GED, job training, learning the Burkinan language, technical skills, or developing parenting skills)? No 10/25/2024 Are you concerned about learning? Not on file 10/25/2024 No 10/25/2024 Yes 10/25/2024 Food Answer Date Recorded Within the past 6 months we worried whether our food would run out before we got money to buy more. Never True 10/25/2024 Within the past 6 months the food we bought just didn't last and we didn't have enough money to get more. Never True Residential Stability Answer Date Recor ded What is your housing situation today? I have jericho silverman 10/25/2024 How many times have you move d in the past 12 months? Zero (I did not move) 10/25/2024 Paying for Meds Answer Date Recorded Do you have trouble paying for medicines? No 10/25/2024 Paying Utility Bills Answer Date Record ed Do you have trouble paying your heating or elect ricity bill? No 10/25/2024 Transportation Answer Date Recorded Has the lack of transportati on kept you from medical appointments or from getting medications? No 10/25/2024 Unemployment Answer Date Recorded Are you currently unemployed or working on a part-time or temporary basis, and looking for work? No 2022 Digital Access Answer Date Recorded No 10/25/2024 Yes 10/25/2024 Do you have reliable internet access at home? Ye s 10/25/2024 Do you have a device (e.g., phone, tablet, computer) with a working camera? Yes 10/25/2024 Intimate Partner Violence Answer Date R ecorded Denied Basic Needs Not on file 10/25/2024 In the past 12 months have y ou been in a relationship with a person who hurts, threatens, or tries to control you? No 10/25/2024 Worried food would run out Not on file 10/25 In the past 12 months have y ou been in a relationship with a person who hurts, threatens, or tries to control you? No 10/25/2024 Comments Unknown Sex and Gender Information Value Date Recorded Sex Assigned at Female 08/24/2019 3:14 PM EDT Legal Sex Female 9:42 PM EDT Gender Identity Female 08/24/2019 3:14 PM EDT Sexual Orientation Not on file documented as of this encounter Plan of Treatment Upcoming Encounters Date Type Department Care Team (Late st Contact Info) Description 04/27/2025 3:00 PM EST Office Visit [facility] Internal Medicine [address] [facility] [place] [address] Du Maldonado MD [address] [place] [address] [email or web address] documented as of this encounter Procedures Procedure Name Priority Date/Time Associated Diagnosis Comments COMPREHENSIVE METABOLIC PANEL Routine 10/26/2024 1:28 PM EDT HIV-1/2 ANTIGEN/ANTIBODY Routine 10/26/2024 1:28 PM EDT CBC AND DIFFERENTIAL Routine 10/26/2024 1:28 PM EDT HEMOGLOBIN A1C Routine 10/26/2024 1:28 PM EDT LIPID PANEL Routine 10/26/2024 1:28 PM EDT documented in this encounter Results * HIV-1/2 antigen/antibody (10/26/2024 1:28 PM EDT) [facility] Provider MD LAB BLOOD ORDERABLES Shivani l Result * CBC and differential (10/26/2024 1:28 PM EDT) Blood Result [facility] Provider MD LAB BLOOD ORDERABLES Shivani l Result * Hemoglobin A1c (10/26/2024 1:28 PM EDT) [facility] Provider MD LAB BLOOD ORDERABLES Shivani l Result * Lipid panel (10/26/2024 1:28 PM EDT) [facility] Provider MD LAB BLOOD ORDERABLES Shivani l Result * Comprehensive metabolic panel (10/26/2024 1:28 PM EDT) [facility] Provider MD LAB BLOOD ORDERABLES Shivani l Result documented in this encounter Visit Diagnoses Not on filedocumented in this encounter Additional Health Concerns Assessment Noted Time PHQ-2 Depression Total Score: 0 10/26/19 25 3:21 PM EDT documented as of this encounter Care Teams Military Technology Manager Relationship Specialty Start Date End Date Du Maldonado MD [address] [place] [address] [email or web address] PCP - General Internal Medicine 08/07/22 documented as of this encounter Additional Source Comments The information contained in this document represents components of the legal health record. It is not the complete legal health record.[facility]
--- OUTSIDE RECORDS SUMMARY | 2024-11-28 19:58 | XMS_ITS | Clinical Summary ---
Author Organization [facility] Address [address] [address] Phone Care Team Providers Care Mainspring Former Brace End Name Role Phone Du Maldonado MD Primary Care Provider [phone] Allergies Active Allergy Reactions Criticality Noted Date Comments Lisinopril Cough 07/22/2017 Sulfa (Sulfonamide Antibiotics) Hives,Itching 1 04/12/2016 Medications aspirin 81 MG EC tablet 1 tablet Active cholecalciferol (VITAMIN D3) 2,000 unit capsuleIndicati ons:vitamin D deficiency Take 2,000 Units by mouth daily. Indications: low vitamin D levels Active amLODIPine (NORVASC) 10 MG tabletIndicatio ns:Hypertension Take 1 tablet (10 mg total) by mouth every morning. 90 tablet 3 08/22/2024 Active PARoxetine (PAXIL) 30 MG tabletIndicatio ns:Anxiety and depression TAKE ONE (1) TABLET BY MOUTH EACH MORNING 90 tablet 3 10/06/2024 Active valsartan (DIOVAN) 160 MG tabletIndicatio ns:Hypertension TAKE 1 TABLET (160 MG TOTAL) BY MOUTH DAILY. 90 tablet 10/17/2024 Active Active Problems Problem Noted Date Diagnosed Date Routine general medical exam ination at a health care facility 10/16/2023 Assessment & Plan (10/25/2024 4:11 PM EDT): Exam negative for pathology. She does have the 1 skin lesion it is reasonable to send the patient for biopsy or evaluation to dermatology. Blood pressure in fairly good control we will follow-up on blood pressure again in 6 months. She will go to [facility] for lab work and mammogram. Tetanus shot will be administered today. She will come off of the Paxil in stages first for 1 month 15 mg down from 30 mg and then down to 10 mg then down to 5 mg in 2 weeks stages and then off. Assessment & Plan (10/16/2023 4:17 PM EDT): [...] this time. This can be done over [facility]. Assessment & Plan (05/19/2022 10:23 PM [...] prior to 2017 and completed PPHP at [facility] in January 2020. Assessment & Plan (05/19/2022 10:24 PM EST): Will reduce buspar to 5 mg daily x 2 weeks, then if feeling well will d/c entirely Assessment & Plan (03/06/2020 3:25 PM EST): Continue all medications as prescribed Encounters Date Type Department Care Team Description 10/28/2024 Orders Only [facility] Internal Medicine [address] [place] [address] ProviderMarvin MD 10/25/2024 3:30 PM EDT Office Visit [facility] Internal Medicine 40 [facility] [place] [address] Du Maldonado MD Routine general medical examination at a health care facility (Primary Dx); Screening for human immunodeficiency virus; Need for hepatitis C screening test; Screening mammogram for breast cancer; Mixed hyperlipidemia; Primary hypertension; Impaired fasting glucose; Skin lesion; Menopausal vasomotor syndrome; Anxiety and depression 10/24/2024 Documentation [facility] Internal Medicine 40 [facility] [place] [address] Du Maldonado MD 10/17/2024 Refill [facility] Internal Medicine 40 [facility] [place] [address] Du Maldonado MD Medication Refill 10/06/2024 Refill [facility] Internal Medicine 40 [facility] [place] [address] Du Maldonado MD Medication Refill from Last 3 Months Immunizations Immunization Administration Dates Next Due COVID-19 (Pre-01/05) Pfizer Vaccine, mRNA, PF 12/12/2020,05/01/2020 INFLUENZA, SPLIT VIRUS, TRIVALENT PF 12/24/2023 INFLUENZA, SPLIT VIRUS, TRIV ALENT W/ PRESERVATIVE IM 01/11/2016,12/05/2010 Influenza Quadrivalent Preservative Free IM 12/15,2022,01/08/2021 Influenza Quadrivalent w/ Preservative IM 2016 Td (adult) 5 Lf Tetanus Toxo id, PF, Adsorbed 10/25/2024 Tdap 01/07/2011 Family History * Patient is [...] high school, GED, job training, learning the Mongolian language, technical skills, or developing parenting skills)? [...] Sign Reading Time Taken Comments Blood Pressure 130/62 10/25/2024 3:22 PM EDT Pulse 85 10/25/2024 3:22 PM EDT Temperature 36.5 C (97.7 F) 10/25/2024 3:22 PM EDT Respiratory Rate 14 10/25/2024 3:22 PM EDT Oxygen Saturation 99% 10/25/2024 3:22 PM EDT Inhaled Oxygen Concentration - - Weight 79.9 kg (176 lb 3.2 oz) 10/25/2024 3:22 P M EDT Height 167.6 cm (5' 5.98 ) 10/25/2024 3:22 PM ED T Body Mass Index 28.45 10/25/2024 3:22 PM EDT Plan of Treatment Upcoming Encounters Date Type Department Care Team (Late st Contact Info) Description 04/27/2025 3:00 PM EST Office Visit [facility] Internal Medicine [address] [place] [address] Du Maldonado MD [address] [place] [address] [email or web address] Maintenance Due Date Last Done Comments HIV ONE-TIME SCREENING (18-65 YEARS) 02/17/1982 HEPATITIS A VACCINES (1 of 2 - Risk 2-dose series) 02/17/1983 PNEUMOCOCCAL VACCINES (50+ years) (1 of 2 - PCV) 02/17/1983 COLOGUARD 02/17/2009 FIT TEST 02/17/2009 FOBT 02/17/2009 SIGMOIDOSCOPY 02/17/2009 VIRTUAL COLONOSCOPY 02/17/2009 ZOSTER VACCINES (1 of 2) 02/17/2014 PAP SMEAR 07/12/2018 07/12/2013 COLONOSCOPY 01/22/2024 01/21/2019 COLORECTAL CANCER SCREENING 01/22/2024 RSV VACCINE (1 - Risk 60-74 years 1-dose series) 2024 INFLUENZA VACCINE (#1) 2024 , 01/07/2023, 2022, Additional history exists BLOOD PRESSURE 04/27/2025 10/25/2024 POTASSIUM LEVEL 05/06/2025 05/06/2024, 02/0 07/2024, 05/20/2022, Additional history exists SCREENING FOR DIABETES 05/20/2025 05/20/2022, 2017 DEPRESSION SCREENING 10/25/2025 10/25/2024 SMOKING Hx and SMOKELESS TOBACCO SCREENING 10/25/2025 10/25/2024 CREATININE LEVEL 10/26/2025 10/26/2024, 02/2025, 05/06/2024, Additional history exists MAMMOGRAM 10/25/2026 10/25/2024, 07/15, 08/01/2021, Additional history exists LIPID PANEL 05/06/2029 05/06/2024, 04/17, 05/06/2024, Additional history exists Adult Td,Tdap Booster 10/25/2034 10/25/2024, 011 COVID-19 VACCINE Completed 01/04/2024, , 12/12/2020, Additional history exists HEPATITIS C SCREENING Completed 10/25/2024 HIB VACCINES Aged Out No longer eligi ble based on patient's age to complete this topic MENINGOCOCCAL VACCINES (ACWY) Aged Out No longer eligible based on patient's age to complete this topic MENINGOCOCCAL VACCINES (B) Aged Out N o longer eligible based on patient's age to complete this topic Medical Devices Not on file Procedures Procedure Name Priority Date/Time Associated Diagnosis Comments CBC AND DIFFERENTIAL Routine 10/26/2024 1:28 PM EDT HEMOGLOBIN A1C Routine 10/26/2024 1:28 PM EDT LIPID PANEL Routine 10/26/2024 1:28 PM EDT COMPREHENSIVE METABOLIC PANEL Routine 10/26/2024 1:28 PM EDT HIV-1/2 ANTIGEN/ANTIBODY Routine 10/26/2024 1:28 PM EDT BI MAMMOGRAM SCREENING (BILATERAL) Routine 10/25/2024 3:57 PM EDT Screening mammogram for breast cancer OUTSIDE HDL Routine 05/06/2024 OUTSIDE POTASSIUM LEVEL Routine 05/06/2024 HM COLONOSCOPY FOR RESULT ENTRY ONLY Routine 01/21/2019 OUTSIDE GLUCOSE FASTING Routine 07/09/2017 from Last 3 Months or Most Recently Relevant to Health Maintenance Results * Comprehensive metabolic panel (10/26/2024 1:28 PM EDT) Result [facility] MD LAB BLOOD ORDERABLES Shivani l Result * HIV-1/2 antigen/antibody (10/26/2024 1:28 PM EDT) Result [facility] MD LAB BLOOD ORDERABLES Shivani l Result * CBC and differential (10/26/2024 1:28 PM EDT) Blood Result [facility] LAB BLOOD ORDERABLES Shivani l Result * Hemoglobin A1c (10/26/2024 1:28 PM EDT) Result [facility] LAB BLOOD ORDERABLES Shivani l Result * Lipid panel (10/26/2024 1:28 PM EDT) Result [facility] MD LAB BLOOD ORDERABLES Shivani l Result * Outside Potassium Level (05/06/2024) Potassium level - External 4.5 3.4 - 5.0 mmol/L Result [facility] LAB BLOOD ORDERABLES Shivani l Result * (ABNORMAL) Outside HDL (05/06/2024) HDL - External 83(A) 40 - 80 mg/dL Result [facility] MD LAB BLOOD ORDERABLES Shivani l Result * HM MAMMOGRAPHY FOR RESULT ENTRY ONLY (08/05/2022) Result [facility] Mara Castro [facility] Tate helen Result - Final * HM COLONOSCOPY FOR RESULT ENTRY ONLY (01/21/2019) HM Colonoscopy tubular adenoma us Historical Provider HEALTH MAINTENANCE Final Result * Outside Glucose,Fasting (07/09/2017) Glucose, fasting - External 77 65 - 99 mg/dL Historical Provider LAB BLOOD ORDERABLES Shivani l Result from Last 3 Months or Most Recently Relevant to Health Maintenance Insurance [employer] Member Subscriber Plan / Payer (Ef fective 2019-Present) Name:Kyra Lenz Relation to Subscriber:Self Name:Kyra Lenz Payer ID:[id number] (NAIC) Type:PPO Address: [address] [employer] Member Subscriber Plan / Payer (Ef fective 2019-Present) Name:Kyra Lenz Relation to Subscriber:Self Name:Kyra Lenz Payer ID:[id number] (NAIC) Type:PPO Address: [address] [employer] InSample BENEFITS ADMINISTRATORS [employer]EF[employer]EF[employer] ADMINISTRAT[employer]EF[employer] ADMINISTRAT[employer] Care Teams Mainspring Former Brace End Relationship Specialty Start Date End Date Du Maldonado MD [address] [place] [address] [email or web address] PCP - General Internal Medicine 08/07/22 Additional Source Comments The information contained in this document represents components of the legal health record. It is not the complete legal health record.[facility]
--- OUTSIDE RECORDS SUMMARY | 2024-11-28 19:58 | XMS_ITS | Encounter Summary ---
Author Organization [facility] Address [address] [place] [phone] Phone Care Team Providers Care Special Procedures Tech Name Role Phone Mara Castro CNP Primary Care Provider Du Maldonado MD Primary Care Provider [phone] Reason for Referral * Consultation (Emergency) - Closed Specialty Diagnoses / Procedures Referred By Esteban sweeney Referred To Contact Diagnoses Right leg swelling Procedures US Lower Extremity Veins Duplex (Right) Mara Castro CNP Phone: tel: fax: mailto: Referral ID Status Reason Start Date Expiration Date Visits Re quested Visits Authorized [id number] Closed 06/26/2022 06/27/2023 1 1 Reason for Visit * Reason Onset Date Comments Leg Swelling 06/26/2022 Encounter Details Date Type Department Care Team (Late st Contact Info) Description 06/26/2022 Nurse Triage [facility] Internal Medicine [address] [place] [address] Angeline Bailey RN [email or web address] Leg Swelling Social History Tobacco Use Types [...] high school, GED, job training, learning the Ugandan language, technical skills, or developing parenting skills)? [...] basis, and looking for work? No 2022 Comments Unknown Sex and Gender Information Value [...] have ordered this to be performed at [facility]. However, the results willnot be available as [...] educated on risk with delay in care, [place], stroke, verbalized understanding and refused to go [...] Disposition Comments: Protocols used: Leg Swelling And Vqemp-Kjudl-Hp Care Advice Given Care Advice Patient/Caregiver understands and will follow care advice?: No, wishes to speak to PCP GO TO ED/UCC NOW (OR TO OFFICE WITH PCP APPROVAL): [...] are overweight, talk with your doctor (or [employer] SOURCE HEAT PUMP TECHNICIAN/PA) about a weight loss program. CALL BACK [...] decrease the itching. * This is an cnxq-rdm-amtouds (OTC) drug. You can buy it at [...] reduce itching and swelling. * They are ctrc-tin-cgmlqhq (OTC) antihistamine medicines. You can buy them [...] that time? Yes reports seen by Mara Hoskins. OTHER SYMPTOMS: Do you have any other symptoms? (e.g., chest pain, difficulty breathing) Pt denied CP, reports slight SOB, started about 1 week 11. : Is there any chance you are ? When was your last menstrual period? N/A Protocols used: LEG SWELLING AND GASKI-GELPP-VA documented in this encounter Plan of Treatment Upcoming Encounters Date Type Department Care Team (Late st Contact Info) Description 04/27/2025 3:00 PM EST Office Visit [facility] Internal Medicine [address] [place], [place] [phone] Du Maldonado MD [address] [place], [place] [phone] [email or web address] documented as of this encounter Procedures Procedure [...] documented as of this encounter Care Teams Special Procedures Tech Relationship Specialty Start Date End Date Mara Castro CNP [address] [place] [address] PCP - General Internal Medicine 10/29/17 08/06/22 Du Maldonado MD [address] [place] [address] PCP - General Internal Medicine 08/07/22 documented as of this encounter Additional Source Comments The information contained in this document represents components of the legal health record. It is not the complete legal health record.[facility]
--- OUTSIDE RECORDS SUMMARY | 2024-11-28 19:58 | XMS_ITS | Encounter Summary ---
Author Organization [facility] Address [address] [address] Phone Care Team Providers Care Circle Saw Operator Name Role Phone Iain Huston MD Unavailable Yanique Yao MD Unavailable Mikala Dallas MD Unavailable [phone] Jason Oglesby MD Unavailable Dionne Beard HEARING AID CONSULTANT Unavailable Dionne Beard HEARING AID CONSULTANT Primary Care Provider [phone] Mara Castro SEPTIC TANK SERVICE TECHNICIAN Primary Care Provider Du Maldonado MD Primary Care Provider [phone] Encounter Details Date Type Department Care Team (Late st Contact Info) Description 07/22/2017 Ancillary Orders [facility], X-Ray - [place] [address] [place] [address] Sarahi Glover PA [address] [place] [address] Cough Social History Tobacco Use Types Packs/Day Years Used Date Smoking Tobacco: Every Day Cigarettes Smokeless Tobacco: Never Alcohol Use Standard Drinks/Week Comments Yes 0 (1 standard drink = 0.6 oz pur e alcohol) few times a year Comments Unknown Sex and Gender Information Value Date Recorded Sex Assigned at Female 08/24/2019 3:14 PM EDT Legal Sex Female 9:42 PM EDT Gender Identity Female 08/24/2019 3:14 PM EDT Sexual Orientation Not on file documented as of this encounter Plan of Treatment Upcoming Encounters Date Type Department Care Team (Late st Contact Info) Description 04/27/2025 3:00 PM EST Office Visit [facility] Internal Medicine [address] [place], [place] [phone] Du Maldonado MD [address] [place], [place] [phone] [email or web address] documented as of this encounter Visit Diagnoses Diagnosis Cough documented in this encounter Care Teams Circle Saw Operator Relationship Specialty Start Date End Date Dionne Beard NP [address] [place] [phone] PCP - General Family Medicine 03/25/17 10/28/17 Mara Castro CNP [address] [place], [place] PCP - General Internal Medicine 10/29/17 08/06/22 Du Maldonado MD [address] [place], [place] PCP - General Internal Medicine 08/07/22 Iain Huston MD [address] [place] [address], [address] [place] [address] Historical LMR Provider 12/29/16 06/14/19 Yanique Yao MD [address] [place] [address], [address] [place] [address] Historical LMR Provider 12/29/16 Mikala Dallas MD [address] [facility] 204, [address] [place] [address] Historical LMR Provider 12/29/16 06/14/19 Jason Oglesby MD [address] [facility], [address] [place] [address] Historical LMR Provider 12/29/16 06/14/19 Dionne Beard NP [address] [phone] Historical LMR Provider 12/29/16 documented as of this encounter Additional Source Comments The information contained in this document represents components of the legal health record. It is not the complete legal health record.[facility]
--- OUTSIDE RECORDS SUMMARY | 2024-11-28 19:58 | XMS_ITS | Encounter Summary ---
Author Organization [facility] Address [address] [facility] [address] [place] [address] Phone Care Team Providers Care Inclusion Special Education Teacher Name Role Phone Du Maldonado MD Primary Care Provider [phone] Reason for Visit * Reason Comments Medication Refill Encounter Details Date Type Department Care Team (Late st Contact Info) Description 08/08/2022 Refill [facility] Internal Medicine [address] [place], [place] [phone] Mara Castro, DIRECTORY CARRIER [address] [place] [address] [email or web address] Medication Refill Social History Tobacco Use Types [...] high school, GED, job training, learning the Filipino language, technical skills, or developing parenting skills)? [...] with a working camera? Not on file Comments Unknown Sex and Gender Information Value [...] order Visit Info ??? Last visit: 05/19/2022 (Mara Castro, DIRECTORY CARRIER - [facility]) > Requested f/u: Return in about 6 months (around 11/19/2022) for Annual physical. ??? Upcoming visit: 11/26/2022 (Mara Castro, DIRECTORY CARRIER - [facility]) ACTIONS TAKEN BY Gabriel Guaman - Refill [...] Description 04/27/2025 3:00 PM EST Office Visit [facility] Internal Medicine [address] [place] [address] Du Maldonado MD [address] [place] [phone] [email or web address] documented as of this encounter Visit Diagnoses Diagnosis Hypertension Unspecified essential hypertension documented in this encounter Additional Health Concerns Assessment Noted Time PHQ-2 Depression Total Score: 0 02/19/20 22 3:06 PM EST documented as of this encounter Care Teams Inclusion Special Education Teacher Relationship Specialty Start Date End Date Du Maldonado MD [address] [place] [address] PCP - General Internal Medicine 08/07/22 documented as of this encounter Additional Source Comments The information contained in this document represents components of the legal health record. It is not the complete legal health record.[facility]
--- OUTSIDE RECORDS SUMMARY | 2024-11-28 19:58 | XMS_ITS | Encounter Summary ---
Author Organization [facility] Address [facility] [address] [address] Phone Care Team Providers Care Stopper Maker Name Role Phone Mara Castro ADRIANA Primary Care Provider Du Maldnoado MD Primary Care Provider [phone] Encounter Details Date Type Department Care Team (Late st Contact Info) Description 10/07/2019 Orders Only [address] [place] [address] Provider, MD Marvin [address] [place] [address] Social History Tobacco Use Types Packs/Day Years [...] Description 04/27/2025 3:00 PM EST Office Visit [facility] Internal Medicine [address] [place], [place] [phone] Du Maldonado MD [address] [place], [place] [phone] [email or web address] documented as of this encounter Procedures Procedure Name Priority Date/Time Associated Diagnosis Comments OUTSIDE LAB Routine 09/30/2019 documented in this encounter Results * Outside Lab (09/30/2019) us Historical Provider LAB BLOOD ORDERABLES Shivani l Result documented in this encounter Visit Diagnoses Not on filedocumented in this encounter Additional Health Concerns Assessment Noted Time PHQ-2 Depression Total Score: 0 03/25/19 19 1:15 PM EST documented as of this encounter Care Teams Stopper Maker Relationship Specialty Start Date End Date Mara Castro CNP [address] [place] [address] [email or web address] PCP - General Internal Medicine 10/29/17 08/06/22 Du Maldonado MD [address] [place] [address] [email or web address] PCP - General Internal Medicine 08/07/22 documented as of this encounter Additional Source Comments The information contained in this document represents components of the legal health record. It is not the complete legal health record.[facility]
--- OUTSIDE RECORDS SUMMARY | 2024-11-28 19:58 | XMS_ITS | Patient Health Record ---
Author Organization [facility] Address [address] [place] [phone] Care Team Providers Care Color Buffer Name Role Phone Cass Liao Primary Care Provider Jeffery Raza Jr Unavailable Allergies Allergen (clinical drug ingredient) Drug/Non Drug [...] Problem Status W/U Status Risk Notes Problem [id number] Colon cancer screening (Z12.11) Active confirmed Problem [id number] Encounter for other preprocedural examination (Z01.818) Active confirmed Plan Of Treatment Future Test Test Name Order Date COLONOSCOPY 09/15/2018 Insurance Providers Payer Name Payer Address Payer Phone Subscriber Number Group Number Insured Name Patient Relationship to Insured Coverage Start Date Coverage End Date R [address] [address] [place] [id number] DERIC MULTANI Self - patient is the insured Medical (General) History Medical History History ICD Code hypertension elevated cholesterol polycythemia vera, phlebotomies every 4- 6 weeks Surgical History Surgery Date(Month/Year) section x2
== END 2024-11-28 14:31 | disposition home or self-care (01) ==
LOC: HO.MAMMO 14:30
PROVIDERS: PCP Internal Medicine; Visit Provider Internal Medicine
DX: Z12.31 Encounter for screening mammogram for malignant neoplasm of breast (principal)
CPT/HCPCS: 77063; 77067

== ENCOUNTER → 2024-11-28 14:30 | Outpatient (BNV) | payer OTHER, SELFPAY | PROVIDERS: PCP Internal Medicine; Visit Provider Radiology Body Imaging | DX: Z12.31 Encounter for screening mammogram for malignant neoplasm of breast (principal) | CPT/HCPCS: 77063; 77067 ==

== ENCOUNTER 2024-11-29 12:47 | Outpatient (REF) | payer OTHER, SELFPAY ==
--- OUTSIDE RECORDS SUMMARY | 2024-11-29 16:43 | XMS_ITS | Encounter Summary ---
Author Organization [facility] Address [address] [facility] [address] [place] [address] Phone Care Team Providers Care Copier And Printer Field Technician Name Role Phone Du Maldonado MD Primary Care Provider [phone] Encounter Details Date Type Department Care Team (Late st Contact Info) Description 10/28/2024 Orders Only [facility] Internal Medicine [address] [place] [address] Provider, MD Marvin [address] [place] [address] Social History Tobacco Use Types Packs/Day Years Used Date Smoking Tobacco: Every Day Cigarettes 0.3 40 Smokeless Tobacco: Never Comments:5-10 cigarettes rhean ly Alcohol Use Standard Drinks/Week Comments Yes [...] high school, GED, job training, learning the Salvadorean language, technical skills, or developing parenting skills)? [...] 04/27/2025 3:00 PM EST Office Visit [facility] Internal Medicine [address] [place] [address] Du Maldonado MD [address] [place] [address] [email or web address] documented as of this encounter Procedures Procedure Name Priority Date/Time Associated Diagnosis Comments COMPREHENSIVE METABOLIC PANEL Routine 10/26/2024 1:28 PM EDT HIV-1/2 ANTIGEN/ANTIBODY Routine 10/26/2024 1:28 PM EDT CBC AND DIFFERENTIAL Routine 10/26/2024 1:28 PM EDT HEMOGLOBIN A1C Routine 10/26/2024 1:28 PM EDT LIPID PANEL Routine 10/26/2024 1:28 PM EDT documented in this encounter Results * HIV-1/2 antigen/antibody (10/26/2024 1:28 PM EDT) [facility] Provider MD LAB BLOOD ORDERABLES Shivani l Result * CBC and differential (10/26/2024 1:28 PM EDT) Blood Result [facility] Provider MD LAB BLOOD ORDERABLES Shivani l Result * Hemoglobin A1c (10/26/2024 1:28 PM EDT) [facility] Provider MD LAB BLOOD ORDERABLES Shivani l Result * Lipid panel (10/26/2024 1:28 PM EDT) [facility] Provider MD LAB BLOOD ORDERABLES Shivani l Result * Comprehensive metabolic panel (10/26/2024 1:28 PM EDT) [facility] Provider MD LAB BLOOD ORDERABLES Shivani l Result documented in this encounter Visit Diagnoses Not on filedocumented in this encounter Additional Health Concerns Assessment Noted Time PHQ-2 Depression Total Score: 0 10/26/19 25 3:21 PM EDT documented as of this encounter Care Teams Copier And Printer Field Technician Relationship Specialty Start Date End Date Du Maldonado MD [address] [place] [address] [email or web address] PCP - General Internal Medicine 08/07/22 documented as of this encounter Additional Source Comments The information contained in this document represents components of the legal health record. It is not the complete legal health record.[facility]
--- OUTSIDE RECORDS SUMMARY | 2024-11-29 16:43 | XMS_ITS | Encounter Summary ---
Author Organization [facility] Address [address] [address] Phone Care Team Providers Care Patient Relations Liaison Name Role Phone Iain Huston MD Unavailable Yanique Yao MD Unavailable Mikala Dallas MD Unavailable [phone] Jason Oglesby MD Unavailable Dionne Beard HEEL COVER SPLITTER Unavailable Dionne Beard HEEL COVER SPLITTER Primary Care Provider Mara Castro CARD GAME OPERATOR Primary Care Provider Du Maldonado MD Primary Care Provider Encounter Details Date Type Department Care Team (Late st Contact Info) Description 07/22/2017 Ancillary Orders [facility] X[facility]Ray - [place] [address] [place] [address] Sarahi Glover PA [address] [place] [address] [email or web address] Cough Social History Tobacco Use Types Packs/Day [...] Description 04/27/2025 3:00 PM EST Office Visit [facility] Internal Medicine 40 [place], [place] [phone] Du Maldonado MD 40 [place], [place] [address] [email or web address] documented as of this encounter Visit Diagnoses Diagnosis Cough documented in this encounter Care Teams Patient Relations Liaison Relationship Specialty Start Date End Date Dionne Beard NP [address] [place] [phone] PCP - General Family Medicine 03/25/17 10/28/17 Mara Castro CNP [address] [place], [place] PCP - General Internal Medicine 10/29/17 08/06/22 Du Maldonado MD [address] [place], [place] PCP - General Internal Medicine 08/07/22 Iain Huston MD [address] [place] [address] 204, [address] [place] [address] Historical LMR Provider 12/29/16 06/14/19 Yanique Yao MD [address] [place] [address], [address] [place] [address] Historical LMR Provider 12/29/16 Mikala Dallas MD 38 [facility] 204, [address] [place] [address] Historical LMR Provider 12/29/16 06/14/19 Jason Oglesby MD 22 [facility], 2nd [place] [address] Historical LMR Provider 12/29/16 06/14/19 Dionne Beard NP [address] [phone] Historical LMR Provider 12/29/16 documented as of this encounter Additional Source Comments The information contained in this document represents components of the legal health record. It is not the complete legal health record.[facility]
--- OUTSIDE RECORDS SUMMARY | 2024-11-29 16:43 | XMS_ITS | Encounter Summary ---
Author Organization [facility] Address [address] [place] [address] Phone Care Team Providers Care Terminal Supervisor Name Role Phone Mara Castro CNP Primary Care Provider Du Maldonado MD Primary Care Provider [phone] Reason for Referral * Consultation (Emergency) - Closed Specialty Diagnoses / Procedures Referred By Esteban sweeney Referred To Contact Diagnoses Right leg swelling Procedures US Lower Extremity Veins Duplex (Right) Mara Castro CNP Phone: tel: fax: mailto: Referral ID Status Reason Start Date Expiration Date Visits Re quested Visits Authorized [id number] Closed 06/26/2022 06/27/2023 1 1 Reason for Visit * Reason Onset Date Comments Leg Swelling 06/26/2022 Encounter Details Date Type Department Care Team (Late st Contact Info) Description 06/26/2022 Nurse Triage [facility] Internal Medicine [address] [place] [address] Angeline Bailey RN [email or web address] Leg Swelling Social History Tobacco Use Types [...] high school, GED, job training, learning the [place] Rican language, technical skills, or developing parenting skills)? [...] have ordered this to be performed at [facility]. However, the results willnot be available as [...] educated on risk with delay in care, OR, stroke, verbalized understanding and refused to go [...] Disposition Comments: Protocols used: Leg Swelling And Gboim-Hsboi-Vb Care Advice Given Care Advice Patient/Caregiver understands [...] are overweight, talk with your doctor (or COAL CUTTING MACHINE OPERATOR/PA) about a weight loss program. CALL BACK [...] decrease the itching. * This is an icvt-seb-gituokl (OTC) drug. You can buy it at [...] reduce itching and swelling. * They are wzvj-rzc-eboblnz (OTC) antihistamine medicines. You can buy them [...] period? N/A Protocols used: LEG SWELLING AND GBLYL-IUSGK-BD documented in this encounter Plan of Treatment Upcoming Encounters Date Type Department Care Team (Late st Contact Info) Description 04/27/2025 3:00 PM EST Office Visit [facility] Internal Medicine [address] [place], [place] [phone] Du Maldonado MD 40 [place], [place] [phone] [email or web address] documented as of this encounter Procedures Procedure [...] documented as of this encounter Care Teams Terminal Supervisor Relationship Specialty Start Date End Date Mara Castro CNP 40 [place] [address] PCP - General Internal Medicine 10/29/17 08/06/22 Du Maldonado MD 40 [place] [address] PCP - General Internal Medicine 08/07/22 documented as of this encounter Additional Source Comments The information contained in this document represents components of the legal health record. It is not the complete legal health record.[facility]
--- OUTSIDE RECORDS SUMMARY | 2024-11-29 16:43 | XMS_ITS | Encounter Summary ---
Author Organization [facility] Address [address] [facility] [address] [place] [address] Phone Care Team Providers Care Whanau Support Worker Name Role Phone Du Maldonado MD Primary Care Provider [phone] Reason for Visit * Reason Comments Medication Refill Encounter Details Date Type Department Care Team (Late st Contact Info) Description 08/08/2022 Refill [facility] Internal Medicine [address] [place], [place] [phone] Mara Castro, AN EMPLOYEE SPONSOR OR ADVOCATE AND [address] [place] [address] [email or web address] Medication Refill Social History [...] high school, GED, job training, learning the Lithuanian language, technical skills, or developing parenting skills)? [...] Info ??? Last visit: 05/19/2022 (Mara Castro, AN EMPLOYEE SPONSOR OR ADVOCATE AND - [facility]) > Requested f/u: Return in about 6 months (around 11/19/2022) for Annual physical. ??? Upcoming visit: 11/26/2022 (Mara Castro, AN EMPLOYEE SPONSOR OR ADVOCATE AND - [facility]) ACTIONS TAKEN BY Gabriel Guaman - Refill [...] Description 04/27/2025 3:00 PM EST Office Visit [facility] Internal Medicine [address] [place] [address] Du Maldonado MD [address] [place] [address] [email or web address] documented as of this encounter Visit Diagnoses Diagnosis Hypertension Unspecified essential hypertension documented in this encounter Additional Health Concerns Assessment Noted Time PHQ-2 Depression Total Score: 0 02/19/20 22 3:06 PM EST documented as of this encounter Care Teams Whanau Support Worker Relationship Specialty Start Date End Date Du Maldonado MD [address] [place] [address] PCP - General Internal Medicine 08/07/22 documented as of this encounter Additional Source Comments The information contained in this document represents components of the legal health record. It is not the complete legal health record.[facility]
--- OUTSIDE RECORDS SUMMARY | 2024-11-29 16:43 | XMS_ITS | Patient Health Record ---
Author Organization [facility] Address [address] [place] [phone] Care Team Providers Care Rn Maternity Name Role Phone Cass Liao Primary Care Provider Jeffery Raza Jr Unavailable [phone] Allergies Allergen (clinical drug ingredient) Drug/Non Drug [...] Problem Status W/U Status Risk Notes Problem [id number] Colon cancer screening (Z12.11) Active confirmed Problem [id number] Encounter for other preprocedural examination (Z01.818) Active confirmed Plan Of Treatment Future Test Test Name Order Date COLONOSCOPY 09/15/2018 Insurance Providers Payer Name Payer Address Payer Phone Subscriber Number Group Number Insured Name Patient Relationship to Insured Coverage Start Date Coverage End Date R [address] [address] [place] [id number] DERIC MULTANI Self - patient is the insured Medical (General) History Medical History History ICD Code hypertension elevated cholesterol polycythemia vera, phlebotomies every 4- 6 weeks Surgical History Surgery Date(Month/Year) section x2
--- OUTSIDE RECORDS SUMMARY | 2024-11-29 16:43 | XMS_ITS | Clinical Summary ---
Demographics Address [address] [place] [address] Home Phone Mobile Phone Email Address Email Address .[employer] m Preferred Language Croatian Marital Status /Civil Union Jainism Affiliation Unknown Race White Ethnic Group Not or Lati no Author Organization [facility] Address [address] [address] Phone Care Team Providers Care Galvanizer Zinc Name Role Phone Du Maldonado MD Primary Care Provider [phone] Allergies Active Allergy Reactions Criticality Noted Date [...] in 6 months. She will go to [facility] for lab work and mammogram. Tetanus [...] this time. This can be done over [facility]. Assessment & Plan (05/19/2022 10:23 PM [...] prior to 2017 and completed PPHP at [place] in January 2020. Assessment & Plan (05/19/2022 10:24 PM EST): Will reduce buspar to 5 mg daily x 2 weeks, then if feeling well will d/c entirely Assessment & Plan (03/06/2020 3:25 PM EST): Continue all medications as prescribed Encounters Date Type Department Care Team Description 10/28/2024 Orders Only [facility] Internal Medicine [address] [place] [address] ProviderMarvin MD 10/25/2024 3:30 PM EDT Office Visit [facility] Internal Medicine 40 [facility] [place] [address] Du Maldonado MD Routine general medical examination at a health care facility (Primary Dx); Screening for human immunodeficiency virus; Need for hepatitis C screening test; Screening mammogram for breast cancer; Mixed hyperlipidemia; Primary hypertension; Impaired fasting glucose; Skin lesion; Menopausal vasomotor syndrome; Anxiety and depression 10/24/2024 Documentation [facility] Internal Medicine 40 [facility] [place] [address] Du Maldonado MD 10/17/2024 Refill [facility] Internal Medicine 40 [facility] [place] [address] Du Maldonado MD Medication Refill 10/06/2024 Refill [facility] Internal Medicine 40 [facility] [place] [address] Du Maldonado MD Medication Refill from Last [...] high school, GED, job training, learning the Croatian language, technical skills, or developing parenting skills)? [...] Description 04/27/2025 3:00 PM EST Office Visit [facility] Internal Medicine [address] [place] [address] Du Maldonado MD 40 [place] [address] [email or web address] Health Maintenance Due Date Last Done Comments [...] metabolic panel (10/26/2024 1:28 PM EDT) Result [facility] MD LAB BLOOD ORDERABLES Shivani l Result * HIV-1/2 antigen/antibody (10/26/2024 1:28 PM EDT) Result [facility] MD LAB BLOOD ORDERABLES Shivani l Result * CBC and differential (10/26/2024 1:28 PM EDT) Blood Result [facility] LAB BLOOD ORDERABLES Shivani l Result * Hemoglobin A1c (10/26/2024 1:28 PM EDT) Result [facility] LAB BLOOD ORDERABLES Shivani l Result * Lipid panel (10/26/2024 1:28 PM EDT) Result [facility] MD LAB BLOOD ORDERABLES Shivani l Result * Outside Potassium Level (05/06/2024) Potassium level - External 4.5 3.4 - 5.0 mmol/L Result [facility] LAB BLOOD ORDERABLES Shivani l Result * (ABNORMAL) Outside HDL (05/06/2024) HDL - External 83(A) 40 - 80 mg/dL Result [facility] MD LAB BLOOD ORDERABLES Shivani l Result * HM MAMMOGRAPHY FOR RESULT ENTRY ONLY (08/05/2022) Result [facility] Mara Castro [facility] HEALTH MAINTENANCE Tate helen Result - Final * HM COLONOSCOPY FOR RESULT ENTRY ONLY (01/21/2019) HM Colonoscopy tubular adenoma us Historical Provider HEALTH MAINTENANCE Final Result * Outside Glucose,Fasting (07/09/2017) Glucose, fasting - External 77 65 - 99 mg/dL Historical Provider LAB BLOOD ORDERABLES Shivani l Result from Last 3 Months or Most Recently Relevant to Health Maintenance Insurance [employer] Member Subscriber Plan / Payer (Ef fective 2019-Present) Name:Kyra Lenz Relation to Subscriber:Self Name:Kyra Lenz Payer ID:[id number] (NAIC) Type:PPO Address: [address] [employer] Member Subscriber Plan / Payer (Ef fective 2019-Present) Name:Kyra Lenz Relation to Subscriber:Self Name:Kyra Lenz Payer ID:[id number] (NAIC) Type:PPO Address: [address] [employer] [facility] BENEFITS ADMINISTRATORS [employer] [facility] [employer] [facility] [employer] [facility] [employer] [facility] [employer] Care Teams Galvanizer Zinc Relationship Specialty Start Date End Date Du Maldonado MD [address] [place] [address] [email or web address] PCP - General Internal Medicine 08/07/22 Additional Source Comments The information contained in this document represents components of the legal health record. It is not the complete legal health record.[facility]
--- OUTSIDE RECORDS SUMMARY | 2024-11-29 16:43 | XMS_ITS | Encounter Summary ---
Author Organization [facility] Address [facility] [address] [address] Phone Care Team Providers Care Pier Worker Name Role Phone Mara Castro ADRIANA Primary Care Provider Du Maldonado MD Primary Care Provider [phone] Encounter Details Date Type Department Care Team (Late st Contact Info) Description 10/07/2019 Orders Only [address] [place] [address] Provider, MD Marvin [address] [place] [address] Social History Tobacco Use Types Packs/Day Years [...] Description 04/27/2025 3:00 PM EST Office Visit [facility] Internal Medicine [address] [place], [place] [phone] Du Maldonado MD [address] [place], [place] [phone] [email or web address] documented as of this encounter Procedures Procedure [...] documented as of this encounter Care Teams Pier Worker Relationship Specialty Start Date End Date Mara Csatro CNP [address] [place] [address] [email or web address] PCP - General Internal Medicine 10/29/17 08/06/22 Du Maldonado MD [address] [place] [address] [email or web address] PCP - General Internal Medicine 08/07/22 documented as of this encounter Additional Source Comments The information contained in this document represents components of the legal health record. It is not the complete legal health record.[facility]
== END 2024-11-29 12:48 | disposition home or self-care (01) ==
LOC: HO.BBR 12:47
PROVIDERS: PCP Internal Medicine; Visit Provider Internal Medicine
DX: D75.1 Secondary polycythemia (principal)
CPT/HCPCS: 85014; 85018; 99195

== ENCOUNTER 2025-01-10 12:56 | Outpatient (REF) | payer OTHER, SELFPAY ==
--- OUTSIDE RECORDS SUMMARY | 2025-01-10 16:18 | XMS_ITS | Clinical Summary ---
Author Organization [facility] Address [address] [employer] [address] [address] Phone Care Team Providers Care Ballet Teacher Name Role Phone Du Maldonado MD Primary Care Provider [phone] Allergies Active Allergy Reactions Criticality Noted Date [...] in 6 months. She will go to [facility] for lab work and mammogram. Tetanus [...] this time. This can be done over [facility]. Assessment & Plan (05/19/2022 10:23 PM [...] prior to 2017 and completed PPHP at [facility] in January 2020. Assessment & Plan (05/19/2022 10:24 PM EST): Will reduce buspar to 5 mg daily x 2 weeks, then if feeling well will d/c entirely Assessment & Plan (03/06/2020 3:25 PM EST): Continue all medications as prescribed Encounters Date Type Department Care Team Description 11/30/2024 Orders Only [facility] Internal Medicine [address] [place] [address] ProviderMarvin MD 10/28/2024 Orders Only [facility] Internal Medicine [address] [place] [address] Marvin Avila MD 10/25/2024 3:30 PM EDT Office Visit [facility] Internal [facility] [address] [place] [address] Du Maldonado MD Routine general medical examination at a health care facility (Primary Dx); Screening for human immunodeficiency virus; Need for hepatitis C screening test; Screening mammogram for breast cancer; Mixed hyperlipidemia; Primary hypertension; Impaired fasting glucose; Skin lesion; Menopausal vasomotor syndrome; Anxiety and depression 10/24/2024 Documentation [facility] Internal [facility] [address] [facility] [place] [address] Du Maldonado MD 10/17/2024 Refill [facility] Internal [facility] [address] [facility] [place] [address] Du Maldonado MD Medication Refill from Last [...] high school, GED, job training, learning the [place]guill[place] language, technical skills, or developing parenting skills)? [...] Description 04/27/2025 3:00 PM EST Office Visit [facility] Internal Medicine [address] [place], [place] [phone] Du Maldonado MD 40 [place] [address] [email or web address] Health Maintenance Due Date Last Done Comments HIV ONE-TIME SCREENING (18-65 YEARS) 02/17/1982 HEPATITIS A VACCINES (1 of 2 - Risk 2-dose series) 02/17/1983 PNEUMOCOCCAL VACCINES (50+ years) (1 of 2 - PCV) 02/17/1983 COLOGUARD 02/17/2009 FIT TEST 02/17/2009 FOBT 02/17/2009 SIGMOIDOSCOPY 02/17/2009 VIRTUAL COLONOSCOPY 02/17/2009 RSV VACCINE (1 - Risk 50-74 years 1-dose series) 02/17/2014 ZOSTER VACCINES (1 of 2) 02/17/2014 PAP SMEAR 07/12/2018 07/12/2013 COLONOSCOPY 01/22/2024 01/21/2019 COLORECTAL CANCER SCREENING 01/22/2024 INFLUENZA VACCINE (#1) 2024 , 01/07/2023, 2022, Additional history exists COVID-19 VACCINE ( season) 2024 01/04/2024, 01/30/2023, 12/12/2020, Additional history exists BLOOD PRESSURE 04/27/2025 10/25/2024 POTASSIUM LEVEL 05/06/2025 05/06/2024, 02/0 07/2024, 05/20/2022, Additional history exists SCREENING FOR DIABETES 05/20/2025 05/20/2022, 2017 DEPRESSION SCREENING 10/25/2025 10/25/2024 SMOKING Hx and SMOKELESS TOBACCO SCREENING 10/25/2025 10/25/2024 CREATININE LEVEL 10/26/2025 10/26/2024, 02/2025, 05/06/2024, Additional history exists MAMMOGRAM 11/28/2026 11/28/2024, 10/14, 08/05/2022, Additional history exists LIPID PANEL 05/06/2029 05/06/2024, 04/17, 05/06/2024, Additional history exists Adult Td,Tdap Booster 10/25/2034 10/25/2024, 011 HEPATITIS C SCREENING Completed 10/25/2024 HIB VACCINES [...] Date/Time Associated Diagnosis Comments HM MAMMOGRAPHY Routine 11/28/2024 3:29 PM EDT CBC AND DIFFERENTIAL Routine 10/26/2024 [...] * HM MAMMOGRAPHY FOR RESULT ENTRY ONLY (11/28/2024 3:29 PM EDT) [facility] Provider HEALTH MAINTENANCE Final Result * Comprehensive metabolic panel (10/26/2024 1:28 PM EDT) Result [facility] Provider LAB BLOOD ORDERABLES Shivani l Result * HIV-1/2 antigen/antibody (10/26/2024 1:28 PM EDT) Result [facility] Provider LAB BLOOD ORDERABLES Shivani l Result * CBC and differential (10/26/2024 1:28 PM EDT) Blood Result [facility] Provider LAB BLOOD ORDERABLES Shivani l Result * Hemoglobin A1c (10/26/2024 1:28 PM EDT) Result [facility] Provider LAB BLOOD ORDERABLES Shivani l Result * Lipid panel (10/26/2024 1:28 PM EDT) Result [facility] Provider LAB BLOOD ORDERABLES Shivani l Result * Outside Potassium Level (05/06/2024) Potassium level - External 4.5 3.4 - 5.0 mmol/L Result [facility] LAB BLOOD ORDERABLES Shivani l Result * (ABNORMAL) Outside HDL (05/06/2024) HDL - External 83(A) 40 - 80 mg/dL Result [facility] Provider LAB BLOOD ORDERABLES Shivani l Result * COLONOSCOPY FOR RESULT ENTRY ONLY (01/21/2019) Colonoscopy tubular adenoma us Historical Provider HEALTH MAINTENANCE Final Result * Outside Glucose,Fasting (07/09/2017) Glucose, fasting - External 77 65 - 99 mg/dL us Historical Provider LAB BLOOD ORDERABLES Shivani l Result from Last 3 Months or Most Recently Relevant to Health Maintenance Insurance [employer] Member Subscriber Plan / Payer (Ef fective 2019-Present) Name:Kyra Lenz Relation to Subscriber:Self Name:Kyra Lenz Payer ID:[id number] (NAIC) Type:PPO Address: [place] [id number] [employer] Member Subscriber Plan / Payer (Ef fective 2019-Present) Name:Kyra Lenz Relation to Subscriber:Self Name:Kyra Lenz Payer ID:[id number] (NAIC) Type:PPO Address: [place] [id number] [employer] BENEFITS ADMINISTRATORS [employer]EF[employer]EF[employer]EF[employer]MIN[employer]AT[employer] Care Teams Ballet Teacher Relationship Specialty Start Date End Date Du Maldonado MD [address] [place] [id number] [email or web address] PCP - General Internal Medicine 08/07/22 Additional Source Comments The information contained in this document represents components of the legal health record. It is not the complete legal health record.[facility]
--- OUTSIDE RECORDS SUMMARY | 2025-01-10 16:18 | XMS_ITS | Encounter Summary ---
Author Organization [facility] Address Formerly [facility] [email or web address] [address] [address] Phone Care Team Providers Care Director Corporate Compliance Name Role Phone Mara Castro ADRIANA Primary Care Provider Du Maldonado MD Primary Care Provider [phone] Encounter Details Date Type Department Care Team (Late st Contact Info) Description 10/07/2019 Orders Only [address] [place] [address] Provider, MD Marvin [address] [place] [address] Social History Tobacco Use Types Packs/Day Years [...] Description 04/27/2025 3:00 PM EST Office Visit [facility] Internal Medicine [address] [place], [place] [phone] Du Maldonado MD [address] [place], [place] [phone] [email or web address] documented as of this encounter Procedures Procedure [...] as of this encounter Care Teams Director Corporate Compliance Relationship Specialty Start Date End Date Mara Castro CNP [address] [place] [address] [email or web address] PCP - General Internal Medicine 10/29/17 08/06/22 Du Maldonado MD [address] [place] [address] [email or web address] PCP - General Internal Medicine 08/07/22 documented as of this encounter Additional Source Comments The information contained in this document represents components of the legal health record. It is not the complete legal health record.[facility]
--- OUTSIDE RECORDS SUMMARY | 2025-01-10 16:18 | XMS_ITS | Patient Health Record ---
Author Organization [facility] Address [address] [place] [phone] Care Team Providers Care Gang Supervisor Name Role Phone Cass Liao Primary Care [...] 81 MG 1 tablet Orally Once a day; Duration: 30 day(s) Active Atorvastatin Calcium 20 MG TAKE 1 TABLET BY MOUTH EVERY DAY Oral; Duration: 90 Active PARoxetine HCl 20 MG TAKE 1 TABLET BY MO UT EVERY DAY IN THE MORNING Oral; Duration: 30 Active MiraLax (colon prep) 8.3 ounce ((238) grams mixed with Gatorade or Crystal Light orally begin at 5:00 p.m. the day before the procedure; Duration: 1 day 09/15/2018 Active Immunizations Vaccine Route [...] Problem Status W/U Status Risk Notes Problem Colon cancer screening (385525968) Colon cancer screening (Z12.11) Active confirmed Problem Pre-procedure evaluation check (027568194) Encounter for other preprocedural examination (Z01.818) Active confirmed Plan Of Treatment Future Test Test Name Order Date COLONOSCOPY 09/15/2018 Insurance Providers Payer Name Payer Address Payer Phone Subscriber Number Group Number Insured Name Patient Relationship to Insured Coverage Start Date Coverage End Date [facility] [address] [address] [place] [address] [phone] [id number] DERIC MULTANI Self - patient is the insured Medical (General) History Medical History History ICD Code hypertension elevated cholesterol polycythemia vera, phlebotomies every 4- 6 weeks Surgical History Surgery Date(Month/Year) section x2
--- OUTSIDE RECORDS SUMMARY | 2025-01-10 16:18 | XMS_ITS | Encounter Summary ---
Author Organization [facility] Address [address] [employer] [facility] [address] [place] [address] Phone Care Team Providers Care Straight Cutter Name Role Phone Du Maldonado MD Primary Care Provider [phone] Reason for Visit * Reason Comments Medication Refill Encounter Details Date Type Department Care Team (Late st Contact Info) Description 08/08/2022 Refill [facility] Internal Medicine [address] [place], [place] [phone] Mara Castro, PATENT EXAMINER [address] [place] [address] [email or web address] Medication Refill Social History Tobacco [...] high school, GED, job training, learning the [place] language, technical skills, or developing parenting skills)? [...] Info ??? Last visit: 05/19/2022 (Mara Castro, PATENT EXAMINER - [facility]) > Requested f/u: Return in about 6 months (around 11/19/2022) for Annual physical. ??? Upcoming visit: 11/26/2022 (Mara Castro, PATENT EXAMINER - [facility]) ACTIONS TAKEN BY [...] Description 04/27/2025 3:00 PM EST Office Visit [facility] Internal Medicine [address] [place] [address] Du Maldonado MD [address] [place] [address] [email or web address] documented as of this encounter Visit Diagnoses Diagnosis Hypertension Unspecified essential hypertension documented in this encounter Additional Health Concerns Assessment Noted Time PHQ-2 Depression Total Score: 0 02/19/20 22 3:06 PM EST documented as of this encounter Care Teams Straight Cutter Relationship Specialty Start Date End Date Du Maldonado MD [address] [place] [address] PCP - General Internal Medicine 08/07/22 documented as of this encounter Additional Source Comments The information contained in this document represents components of the legal health record. It is not the complete legal health record.[facility]
--- OUTSIDE RECORDS SUMMARY | 2025-01-10 16:18 | XMS_ITS | Encounter Summary ---
Author Organization [facility] Address [address] [employer] [address] [address] Phone Care Team Providers Care Ground Intelligence Officer Name Role Phone Iain Huston MD Unavailable Yanique Yao MD Unavailable [phone] Mikala [place] MD Unavailable [phone] Jason Oglesby MD Unavailable Dionne Beard HUMAN RESOURCES TECHNICIAN Unavailable Dionne Beard HUMAN RESOURCES TECHNICIAN Primary Care Provider Mara Castro INVESTMENT SALES ASSISTANT Primary Care Provider Du Maldonado MD Primary Care Provider Encounter Details Date Type Department Care Team (Late st Contact Info) Description 07/22/2017 Ancillary Orders [facility], X-Ray - [place] [address] [place] [address] Sarahi Glover PA [address] [place] [address] [email or web address] [email or web address] Social History Tobacco Use Types Packs/Day [...] Description 04/27/2025 3:00 PM EST Office Visit [facility] Internal Medicine [address] [place], [place] [phone] Du Maldonado MD [address] [place], [place] [address] [email or web address] documented as of this encounter Visit Diagnoses Diagnosis Cough documented in this encounter Care Teams Ground Intelligence Officer Relationship Specialty Start Date End Date Dionne Beard NP [address] [place] [phone] PCP - General Family Medicine 03/25/17 10/28/17 Mara Castro CNP [address] [place], [place] PCP - General Internal Medicine 10/29/17 08/06/22 Du Maldonado MD [address] [place], [place] PCP - General Internal Medicine 08/07/22 Iain Huston MD [address] [place] [address] 204, [address] [place] [address] Historical LMR Provider 12/29/16 06/14/19 Yanique Yao MD [address] [place] [address], [address] [place] [address] Historical LMR Provider 12/29/16 Mikala [place] MD 38 [facility] 204, [address] [place] [address] Historical LMR Provider 12/29/16 06/14/19 Jason Oglesby MD 22 [facility], 2nd [place] [address] Historical LMR Provider 12/29/16 06/14/19 Dionne Beard NP [address] [phone] Historical LMR Provider 12/29/16 documented as of this encounter Additional Source Comments The information contained in this document represents components of the legal health record. It is not the complete legal health record.[facility]
--- OUTSIDE RECORDS SUMMARY | 2025-01-10 16:18 | XMS_ITS | Encounter Summary ---
Author Organization [facility] Address [address] [place] [address] Phone Care Team Providers Care Film Loader Name Role Phone Mara Castro CNP Primary Care Provider Du Maldonado MD Primary Care Provider [phone] Reason for Referral * Consultation (Emergency) - Closed Specialty Diagnoses / Procedures Referred By Esteban sweeney Referred To Contact Diagnoses Right leg swelling Procedures US Lower Extremity Veins Duplex (Right) Mara Castro CNP Phone: tel: fax: mailto: Referral ID Status Reason Start Date Expiration Date Visits Re quested Visits Authorized [id number] Closed 06/26/2022 06/27/2023 1 1 Reason for Visit * Reason Onset Date Comments Leg Swelling 06/26/2022 Encounter Details Date Type Department Care Team (Late st Contact Info) Description 06/26/2022 Nurse Triage [facility] Internal Medicine [address] [place] [address] Angeline Bailey RN [email or web address] Leg Swelling Social History Tobacco Use Types [...] high school, GED, job training, learning the Argentine language, technical skills, or developing parenting skills)? [...] have ordered this to be performed at [facility]. However, the results willnot be available as [...] educated on risk with delay in care, [place], stroke, verbalized understanding and refused to go [...] Disposition Comments: Protocols used: Leg Swelling And Hvoub-Uvdlx-Ue Care Advice Given Care Advice Patient/Caregiver understands [...] are overweight, talk with your doctor (or HORTICULTURALIST/PA) about a weight loss program. CALL BACK [...] decrease the itching. * This is an qeic-hhm-cvdwwib (OTC) drug. You can buy it at [...] reduce itching and swelling. * They are yntu-jgv-abpswgg (OTC) antihistamine medicines. You can buy them [...] that time? Yes reports seen by Mara Hoskisn. OTHER SYMPTOMS: Do you have any other symptoms? (e.g., chest pain, difficulty breathing) Pt denied CP, reports slight SOB, started about 1 week 11. : Is there any chance you are ? When was your last menstrual period? N/A Protocols used: LEG SWELLING AND ODCJF-XNQAG-RW documented in this encounter Plan of Treatment Upcoming Encounters Date Type Department Care Team (Late st Contact Info) Description 04/27/2025 3:00 PM EST Office Visit [facility] Internal Medicine 40 [place], [place] [phone] Du Maldonado MD 40 [place], [place] [phone] [email or web address] documented as of this encounter Procedures Procedure [...] as of this encounter Care Teams Film Loader Relationship Specialty Start Date End Date Mara Castro CNP [address] [place] [address] PCP - General Internal Medicine 10/29/17 08/06/22 Du Maldonado MD [address] [place] [address] PCP - General Internal Medicine 08/07/22 documented as of this encounter Additional Source Comments The information contained in this document represents components of the legal health record. It is not the complete legal health record.[facility]
== END 2025-01-10 12:57 | disposition home or self-care (01) ==
LOC: HO.BBR 12:56
PROVIDERS: PCP Internal Medicine; Visit Provider Internal Medicine
DX: Z13.89 Encounter for screening for other disorder (principal)
CPT/HCPCS: 85018; 99195

== ENCOUNTER 2025-01-27 07:15 | Outpatient (REF) | payer OTHER, SELFPAY ==
--- OUTSIDE RECORDS SUMMARY | 2025-01-27 07:19 | XMS_ITS | Patient Health Record ---
Author Organization [facility] Address [address] [place] [address] Care Team Providers Care Tread Booker Name Role Phone Cass Liao Primary Care Provider Jeffery Raza Jr Unavailable [phone] Allergies Allergen (clinical drug ingredient) Drug/Non [...] Status Risk Notes Problem Colon cancer screening (268632004) Colon cancer screening (Z12.11) Active confirmed Problem Pre-procedure evaluation check (655750578) Encounter for other preprocedural examination (Z01.818) Active confirmed Plan Of Treatment Future Test Test Name Order Date COLONOSCOPY 09/15/2018 Insurance Providers Payer Name Payer Address Payer Phone Subscriber Number Group Number Insured Name Patient Relationship to Insured Coverage Start Date Coverage End Date [facility] [address] [address] [place] [address] [phone] [id number] DERIC MULTANI Self - patient is the insured Medical (General) History Medical History History ICD Code hypertension elevated cholesterol polycythemia vera, phlebotomies every 4- 6 weeks Surgical History Surgery Date(Month/Year) section x2
--- OUTSIDE RECORDS SUMMARY | 2025-01-27 07:19 | XMS_ITS | Encounter Summary ---
Author Organization [facility] Address [address] [place] [phone] Phone Care Team Providers Care Social Work Instructor Name Role Phone Mara Castro CNP Primary Care Provider Du Maldonado MD Primary Care Provider [phone] Reason for Referral * Consultation (Emergency) - Closed Specialty Diagnoses / Procedures Referred By Esteban sweeney Referred To Contact Diagnoses Right leg swelling Procedures US Lower Extremity Veins Duplex (Right) Mara Castro CNP Phone: tel: fax: mailto:[email or web address] Referral ID Status Reason Start Date Expiration Date Visits Re quested Visits Authorized [id number] Closed 06/26/2022 06/27/2023 1 1 Reason for Visit * Reason Onset Date Comments Leg Swelling 06/26/2022 Encounter Details Date Type Department Care Team (Late st Contact Info) Description 06/26/2022 Nurse Triage [facility] Internal Medicine [address] [place] [address] Angeline Bailey RN [email or web address] [...] high school, GED, job training, learning the [place] language, technical skills, or developing parenting skills)? [...] have ordered this to be performed at [facility]. However, the results willnot be available as [...] educated on risk with delay in care, [place], stroke, verbalized understanding and refused to go [...] Disposition Comments: Protocols used: Leg Swelling And Trgif-Laozb-Kb Care Advice Given Care Advice Patient/Caregiver understands [...] are overweight, talk with your doctor (or CUSTOMS DIRECTOR/PA) about a weight loss program. CALL BACK [...] decrease the itching. * This is an oeod-szx-boowpyi (OTC) drug. You can buy it at [...] reduce itching and swelling. * They are phwy-xkb-udqfiha (OTC) antihistamine medicines. You can buy them [...] period? N/A Protocols used: LEG SWELLING AND QQALY-AJSUO-BT documented in this encounter Plan of Treatment Upcoming Encounters Date Type Department Care Team (Late st Contact Info) Description 04/27/2025 3:00 PM EST Office Visit [facility] Internal Medicine 40 [place], [place] [phone] Du Maldonado MD [address] [place], [place] [phone] [email or web address] documented [...] documented as of this encounter Care Teams Social Work Instructor Relationship Specialty Start Date End Date Mara Castro CNP [address] [place] [address] PCP - General Internal Medicine 10/29/17 08/06/22 Du Maldonado MD 40 [place] [address] PCP - General Internal Medicine 08/07/22 documented as of this encounter Additional Source Comments The information contained in this document represents components of the legal health record. It is not the complete legal health record.[facility]
--- OUTSIDE RECORDS SUMMARY | 2025-01-27 07:19 | XMS_ITS | Encounter Summary ---
Author Organization [facility] Address [address] [employer] [address] [address] Phone Care Team Providers Care Dope And Fabric Worker Name Role Phone Iain Huston MD Unavailable Yanique Yao MD Unavailable Mikala [place] MD Unavailable [phone] Jason Oglesby MD Unavailable [phone] Dionne Beard DIE STAMPING PRESS OPERATOR Unavailable [phone] Dionne Beard DIE STAMPING PRESS OPERATOR Primary Care Provider Mara Castro VEHICLE WASHER Primary Care Provider Du Maldonado MD Primary Care Provider Encounter Details Date Type Department Care Team (Late st Contact Info) Description 07/22/2017 Ancillary Orders [facility], X-Ray - [place] [address] [place] [address] Sraahi Glover PA [address] [place] [address] [email or web address] Social History Tobacco Use Types Packs/Day [...] Description 04/27/2025 3:00 PM EST Office Visit [facility] Internal Medicine [address] [place], [place] [phone] Du Maldonado MD [address] [place] [address] [email or web address] documented as of this encounter Visit Diagnoses Diagnosis Cough documented in this encounter Care Teams Dope And Fabric Worker Relationship Specialty Start Date End Date Dionne Beard NP [address] [place] [phone] PCP - General Family Medicine 03/25/17 10/28/17 Mara Castro CNP [address] [place], [place] PCP - General Internal Medicine 10/29/17 08/06/22 Du Maldonado MD [address] [place], [place] PCP - General Internal Medicine 08/07/22 Iain Huston MD [address] [place] [address] 204, [address] [place] [address] Historical LMR Provider 12/29/16 06/14/19 Yanique Yao MD [address] [place] [address], [address] [place] [address] Historical LMR Provider 12/29/16 Mikala [place] MD 38 [facility] 204, [address] [place] [address] Historical LMR Provider 12/29/16 06/14/19 Jason Oglesby MD 22 [facility], 2nd [place] [address] Historical LMR Provider 12/29/16 06/14/19 Dionne Beard NP [address] [place] [address] [address] [place] [phone] Historical LMR Provider 12/29/16 documented as of this encounter Additional Source Comments The information contained in this document represents components of the legal health record. It is not the complete legal health record.[facility]
--- OUTSIDE RECORDS SUMMARY | 2025-01-27 07:19 | XMS_ITS | Encounter Summary ---
Author Organization [facility] Address [address] [facility] [address] [place] [phone] Phone Care Team Providers Care Bacteriology Teacher Name Role Phone Du Maldonado MD Primary Care Provider [phone] Reason for Visit * Reason Onset Date Comments Labs 01/20/2025 Encounter Details Date Type Department Care Team (Late st Contact Info) Description 01/20/2025 Telephone [employer] [facility] Internal Medicine [address] [place], [place] [phone] Elsy Stanton, TEODORO [address] [place], [place] [id number] [email or web address] Labs Social History Tobacco Use Types Packs/Day Years [...] high school, GED, job training, learning the Kiswahili language, technical skills, or developing parenting skills)? [...] housing situation today? I have jericho sing 10/25/2024 How many times have you move [...] as of this encounter Progress Notes * Elsy Stanton RN - 01/23/2025 9:42 AM EST Fax confirmation received. * Elsy Stanton RN - 01/23/2025 9:19 AM EST Faxed to [facility] as requested. * Elsy Stanton RN - 01/23/2025 9:17 AM EST Spoke to Kyra and advised. She states understanding. Would like labs sent to [facility]. * Elsy Stanton RN - 01/20/2025 10:29 AM EST LVM for Kyra to call back. * Elsy Stanton RN - 01/20/2025 10:28 AM EST Images from the original note were not included. Du Maldonado MD P [facility] Landen Ruiz Cc: Chuyita Diop PA-C Sam had ordered a Chem-12 back in October to reassess liver enzymes to see if they are trending up. Please prompt the patient to go for the lab test that was ordered. documented in this encounter Plan of Treatment Upcoming Encounters Date Type Department Care Team (Late st Contact Info) Description 04/27/2025 3:00 PM EST Office Visit [facility] Internal Medicine [address] [place] [phone] Du Maldonado MD [address] [place] [address] [email or web address] documented as of this encounter Visit Diagnoses Not on filedocumented in this encounter Additional Health Concerns Assessment Noted Time PHQ-2 Depression Total Score: 0 10/26/19 25 3:21 PM EDT documented as of this encounter Care Teams Bacteriology Teacher Relationship Specialty Start Date End Date Du Maldonado MD [address] [place] [address] [email or web address] PCP - General Internal Medicine 08/07/22 documented as of this encounter Additional Source Comments The information contained in this document represents components of the legal health record. It is not the complete legal health record.[facility]
--- OUTSIDE RECORDS SUMMARY | 2025-01-27 07:19 | XMS_ITS | Encounter Summary ---
Author Organization [facility] Address [facility] [address] [address] Phone Care Team Providers Care Blender / Cook Name Role Phone Mara Castro ADRIANA Primary Care Provider Du Maldonado MD Primary Care Provider [phone] Encounter Details Date Type Department Care Team (Late st Contact Info) Description 10/07/2019 Orders Only [address] [place] [address] Provider, MD Marvin [address] [place] [address] Social History Tobacco Use Types Packs/Day Years [...] Description 04/27/2025 3:00 PM EST Office Visit [facility] Internal Medicine [address] [place], [place] [phone] Du Maldonado MD [address] [place], [place] [phone] documented as of this encounter Procedures Procedure Name Priority Date/Time Associated Diagnosis Comments OUTSIDE LAB Routine 09/30/2019 documented in this encounter Results * Outside Lab (09/30/2019) us Historical Provider LAB BLOOD BKR ORDERABLES Final Result documented in this encounter Visit Diagnoses Not on filedocumented in this encounter Additional Health Concerns Assessment Noted Time PHQ-2 Depression Total Score: 0 03/25/19 19 1:15 PM EST documented as of this encounter Care Teams Blender / Cook Relationship Specialty Start Date End Date Mara Castro CNP [address] [place] [address] [email or web address] PCP - General Internal Medicine 10/29/17 08/06/22 Du Maldonado MD [address] [place] [address] [email or web address] PCP - General Internal Medicine 08/07/22 documented as of this encounter Additional Source Comments The information contained in this document represents components of the legal health record. It is not the complete legal health record.[facility]
--- OUTSIDE RECORDS SUMMARY | 2025-01-27 07:19 | XMS_ITS | Encounter Summary ---
Author Organization [facility] Address [address] [facility] [address] [place] [phone] Phone Care Team Providers Care Job Coach/Job Developer Name Role Phone Du Maldonado MD Primary Care Provider [phone] Reason for Visit * Reason Comments Medication Refill Encounter Details Date Type Department Care Team (Late st Contact Info) Description 08/08/2022 Refill [facility] Internal Medicine [address] [place] [address] Mara Castro, ADMINISTRATIVE SUPPORT SPECIALIST [address] [place] [address] [email or web address] Medication Refill Social History Tobacco Use Types [...] high school, GED, job training, learning the Czech language, technical skills, or developing parenting skills)? [...] Info ??? Last visit: 05/19/2022 (Mara Castro, ADMINISTRATIVE SUPPORT SPECIALIST - [facility]) > Requested f/u: Return in about 6 months (around 11/19/2022) for Annual physical. ??? Upcoming visit: 11/26/2022 (Mara Castro, ADMINISTRATIVE SUPPORT SPECIALIST - [facility]) ACTIONS TAKEN BY Gabriel Guaman [...] Description 04/27/2025 3:00 PM EST Office Visit [facility] Internal Medicine [address] [place] [address] Du Maldonado MD [address] [place] [phone] [email or web address] documented as of this encounter Visit Diagnoses Diagnosis Hypertension Unspecified essential hypertension documented in this encounter Additional Health Concerns Assessment Noted Time PHQ-2 Depression Total Score: 0 02/19/20 22 3:06 PM EST documented as of this encounter Care Teams Job Coach/Job Developer Relationship Specialty Start Date End Date Du Maldonado MD [address] [place] [phone] PCP - General Internal Medicine 08/07/22 documented as of this encounter Additional Source Comments The information contained in this document represents components of the legal health record. It is not the complete legal health record.[facility]
--- OUTSIDE RECORDS SUMMARY | 2025-01-27 07:19 | XMS_ITS | Clinical Summary ---
Author Organization [facility] Address [address] [employer] [address] [address] Phone Care Team Providers Care Manager Operations And Procurement Name Role Phone Du Maldonado MD Primary Care Provider [phone] Allergies Active Allergy Reactions Criticality Noted Date Comments Lisinopril Cough 07/22/2017 Sulfa (Sulfonamide Antibiotics) Hives,Itching 1 04/12/2016 Medications aspirin 81 MG EC tablet 1 tablet Active cholecalcifero l (VITAMIN D3) 2,000 unit capsuleIndicat ions:vitamin D deficiency Take 2,000 Units by mouth daily. Indications : low vitamin D levels Active amLODIPine (NORVASC) 10 MG tabletIndicati ons:Hypertensi on Take 1 tablet (10 mg total) by mouth every morning. 90 tablet 3 5 Active PARoxetine (PAXIL) 30 MG tabletIndicati ons:Anxiety and depression TAKE ONE (1) TABLET BY MOUTH EACH MORNING 90 tablet 3 5 Active valsartan (DIOVAN) 160 MG tabletIndicati ons:Hypertensi on TAKE ONE (1) TABLET BY MOUTH EVERY DAY 90 tablet 3 5 Active valsartan (DIOVAN) 160 MG tabletIndicati ons:Hypertensi on TAKE 1 TABLET (160 MG TOTAL) BY MOUTH DAILY. 90 tablet 5 01/13/20 25 Discontinued Active Problems Problem Noted Date Diagnosed [...] in 6 months. She will go to [facility] for lab work and mammogram. Tetanus shot [...] this time. This can be done over [facility]. Assessment & Plan (05/19/2022 10:23 PM EST): [...] prior to 2017 and completed [facility]PHP at [facility] in January 2020. Assessment & Plan (05/19/2022 10:24 PM EST): Will reduce buspar to 5 mg daily x 2 weeks, then if feeling well will d/c entirely Assessment & Plan (03/06/2020 3:25 PM EST): Continue all medications as prescribed Encounters Date Type Department Care Team Description 01/20/2025 Telephone [facility] Internal Medicine [address] [facility] [place] [phone] Elsy Stanton, TEODORO Labs 01/12/2025 Refill [facility] Internal Medicine [address] [facility] [place] [phone] Karina Richardson, ADRIANA Medication Refill 11/30/2024 Orders Only [facility] Internal Medicine [address] [facility] [place] [phone] Provider, MD Marvin 10/28/2024 Orders Only [facility] [place] Internal Medicine [address] [place], SIVAN [phone] Provider, MD Marvin from Last 3 Months Immunizations Immunization Administration Dates Next Due COVID-19 (Pre-01/05) Pfizer Vaccine, mRNA, PF 12/12/2020,05/01/2020 INFLUENZA, SPLIT VIRUS, TRIVALENT PF 12/24/2023 INFLUENZA, SPLIT VIRUS, TRIV ALENT W/ PRESERVATIVE IM 11/14/2017,01/11/2016,12/05/2010 Influenza Quadrivalent Preservative Free IM 12/15,2022,01/08/2021 Influenza [...] high school, GED, job training, learning the Amharic language, technical skills, or developing parenting skills)? [...] Description 04/27/2025 3:00 PM EST Office Visit [facility] Internal Medicine [address] [place] [address] Du Maldonado MD [address] [place] [address] [email or web address] Health Maintenance Due Date Last Done Comments HEPATITIS A VACCINES (1 of 2 - [...] Additional history exists BLOOD PRESSURE 04/27/2025 10/25/2024 DEPRESSION SCREENING 10/25/2025 10/25/2024 SMOKING Hx and SMOKELESS TOBACCO SCREENING 10/25/2025 10/25/2024 CREATININE LEVEL 10/26/2025 10/26/2024, 02/2025, 05/06/2024, Additional history exists POTASSIUM LEVEL 10/26/2025 10/26/2024, 04/17, 04/20/2024, Additional history exists MAMMOGRAM 11/28/2026 11/28/2024, 10/14, 08/05/2022, Additional history exists SCREENING FOR DIABETES 10/27/2027 10/26/2024, 2017 LIPID PANEL 10/26/2029 10/26/2024, 04/17, 05/06/2024, Additional history exists Adult Td,Tdap Booster 10/25/2034 10/25/2024, 011 HEPATITIS C SCREENING Completed 10/25/2024 HIV ONE-TIME SCREENING (18-65 YEARS) Completed 10/26/2024 HIB VACCINES Aged Out No longer eligi ble based on patient's age to complete this topic IPV VACCINES Aged Out No longer eligi ble [...] HM MAMMOGRAPHY Routine 11/28/2024 3:29 PM EDT LIPID PANEL Routine 10/26/2024 1:28 PM EDT COMPREHENSIVE METABOLIC PANEL (CMP) Routine 10/26/2024 1:28 PM EDT HM COLONOSCOPY FOR RESULT ENTRY ONLY Routine 01/21/2019 OUTSIDE GLUCOSE FASTING Routine 07/09/2017 from Last 3 Months or Most Recently Relevant to Health Maintenance Results * HM MAMMOGRAPHY FOR RESULT ENTRY ONLY (11/28/2024 3:29 PM EDT) us Historical Provider MD HEALTH MAINTENANCE Final Result * Comprehensive metabolic panel (10/26/2024 1:28 PM EDT) Sodium - External Potassium - External 4.5 Chloride - External CO2 - External BUN - External Creatinine - External 0.61 Glucose - External Albumin - External Protein - External Calcium - External Alkaline Phosphatase - External Bilirubin, total - External AST - External ALT - External 62 Globulin - External eGFR - External Anion Gap - External [facility] Provider MD LAB BLOOD BKR ORDERABLES Edited Result - Final * Lipid panel (10/26/2024 1:28 PM EDT) Pathologist [facility] HDL - External 85 Cholesterol, Total - External 228 Triglycerides - External 82 LDL, calculated - External 127 Cardiac Risk Ratio - External Non-HDL Cholesterol - External [facility] Provider MD LAB BLOOD BKR ORDERABLES Edited Result - Final * COLONOSCOPY FOR RESULT ENTRY ONLY (01/21/2019) [facility] Colonoscopy tubular adenoma [facility] Provider HEALTH MAINTENANCE Final Result * Outside Glucose,Fasting (07/09/2017) [facility] Glucose, fasting - External 77 65 - 99 mg/dL [facility] Provider LAB BLOOD ORDERABLES Shivani l Result from Last 3 Months or Most Recently Relevant to Health Maintenance Insurance [employer] Care Teams Manager Operations And Procurement Relationship Specialty Start Date End Date Du Maldonado MD [address] [place] [address] [email or web address] PCP - General Internal Medicine 08/07/22 Additional Source Comments The information contained in this document represents components of the legal health record. It is not the complete legal health record.[facility]
[2025-01-27 09:18] LABS: Alanine Aminotransferase 41 U/L (0-31); Albumin Level 4.8 g/dL (3.5-5.0); Alkaline Phosphatase 110 U/L (39-117); Anion Gap 15 (12-20); Aspartate Amino Transferase 30 U/L (5-31); Blood Urea Nitrogen 12 mg/dL (9-16); Calcium 10.2 mg/dL (8.4-10.2); Carbon Dioxide 25 mmol/L (22-29); Chloride 103 mmol/L (96-108); Estimated Glomerular Filt Rate > 60; Potassium 4.1 mmol/L (3.3-5.1); Sodium 139 mmol/L (135-145); Total Protein 7.4 g/dL (6.5-8.0)
== END 2025-01-27 07:16 | disposition home or self-care (01) ==
LOC: HO.LAB 07:15
PROVIDERS: PCP Internal Medicine; Visit Provider Internal Medicine
DX: R74.8 Abnormal levels of other serum enzymes (principal)
CPT/HCPCS: 36415; 80053